=== PATIENT | male | born 1935 | race Hispanic/Latino ===

== ENCOUNTER 2016-11-06 10:47 | Outpatient (CLI) | payer MEDICARE, OTHER ==
--- NOTE | 2016-11-06 11:28 | RAD ---
RADIOGRAPH CHEST 2 VIEWS: HISTORY: 81-year-old male with dyspnea. FINDINGS: There is hyperinflation of the lungs, consistent with COPD. There is no evidence of air space densi ty, pneumothorax, or pulmonary edema. There is no cardiomegaly or pleural effusion. There is no int erval change since 05/10/15. IMPRESSION: 1. No acute cardiopulmonary findings. 2. Emphysema. 3. Pacemaker. 4. Ascending aortic stent. 5. Left-sided pleural plaque. jn [] POS: [facility]
== END 2016-11-06 10:48 | disposition home or self-care (01) ==
LOC: RAD 10:47
PROVIDERS: ATTEND Internal Medicine Pulmonary Disease
DX: R06.00 Dyspnea, unspecified (principal); J43.9 Emphysema, unspecified; J92.9 Pleural plaque without asbestos
CPT/HCPCS: 71020

== ENCOUNTER 2016-12-03 10:42 | Observation (INO) | payer MEDICARE, OTHER ==
[2016-12-03 12:01] LABS: Prothrombin Time 14.8 SEC (12.0-14.7)
[2016-12-03 12:12] LABS: Troponin I Less than 0.010 ng/mL (< 0.028)
[2016-12-03 12:16] LABS: Band 6 % (5-11); Crenated RBC SLIGHT = 1-5 cells (100X) (None Seen); Hematocrit 41.5 % (42.0-52.0); Mean Platelet Volume 9.2 fL (7.4-10.4); Neutrophil 72 % (42-75); Red Blood Cell (RBC) Count 4.26 mill/uL (4.70-6.10); Schistocytes SLIGHT = 2-5 cells (100X) (0-1/hpf); White Blood Cell (WBC) Count 8.8 thou/uL (4.8-10.8)
--- NOTE | 2016-12-03 12:22 | RAD ---
PORTABLE CHEST: Date: 12/03/16 HISTORY: Syncope. FINDINGS: Lung still are clear. Heart and mediastinum are unremarkable. Transvenous pacemaker leads are seen. Aortic stent graft is noted. IMPRESSION: No acute lung process. POS: [facility]
[2016-12-03 12:28] LABS: ALT (SGPT) 18 U/L (8-55); AST (SGOT) 22 U/L (5-34); Alkaline Phosphatase 50 U/L (40-150); Anion Gap 13 mmol/L (10-20); BUN (Urea Nitrogen) 19 mg/dL (8.4-25.7); Bilirubin, Total 0.7 mg/dL (0.2-1.2); Calc. Creatinine Clearance 0 mL/min (70-130); Calcium 8.9 mg/dL (7.8-10.44); Carbon Dioxide 23 mmol/L (23-31); Chloride 103 mmol/L (98-107); Estimated GFR-MDRD 66; Globulin 2.9 g/dL (2.4-3.5); Magnesium 1.8 mg/dL (1.6-2.6); Protein, Total 6.5 g/dL (5.8-8.1)
[2016-12-03 13:04] LABS: Bilirubin Small (Negative); Blood, Urine Negative (Negative); Glucose, Urine (Dipstick) Negative (Negative); Ketone, Urine Trace mg/dL (Negative); Nitrite Negative (Negative); Protein, Urine (Dipstick) Trace mg/dL (Neg-Trace)
[2016-12-03 13:07] LABS: Bacteria/HPF 4+ HPF (None Seen); Squamous Epithelial 0-3 HPF (0-3)
[2016-12-03 13:20] LABS: Hyaline Casts/LPF 0-3 HYALINE CAST LPF (0-3 Hyaline); RBC/HPF 0-3 HPF (0-3); Transitional Epithelial 0-3 HPF (0-3)
--- NOTE | 2016-12-03 13:30 | CT ---
CT HEAD WITHOUT CONTRAST: Date: 12/03/16 Multiple axial tomograms obtained through the head without IV enhancement. HISTORY: Syncope. FINDINGS: Ventricles have normal size and position. There is evidence of old lacunar infarct in the right basa l ganglia. Chronic ischemic changes are noted in the periventricular white matter, especially promin ent along the anterior horns. There is no evidence of acute cortical infarct. No mass or hemorrhage identified. Sinuses and mastoids are well aerated. IMPRESSION: There are chronic change as described above. No evidence of acute process. POS: [facility]
[2016-12-03] MEDS ORDERED: HumaLOG 300 UNITS/3 ML VIAL SC PRN (14:44)
[2016-12-03] MEDS ORDERED: Dextrose 50% Abboject 50 ML SYRINGE SLOW IVP PRN (14:44)
[2016-12-03] MEDS ORDERED: Acetaminophen 325 MG TAB PO PRN (14:44)
[2016-12-03] MEDS ORDERED: Guaifenesin DM 100-10/5 ML UDCUP PO PRN (14:44)
[2016-12-03] MEDS ORDERED: Dextrose 5% in Water 1,000 ML IV PRN (14:44)
[2016-12-03] MEDS ORDERED: Senokot 8.6 MG TAB PO PRN (14:44)
[2016-12-03] MEDS ORDERED: Sodium Chloride 0.9% 1,000 ML IV SCH (14:45)
[2016-12-03 15:00] LABS: Lactic Acid - Sepsis 2.8 mmol/L (0.5-2.2)
[2016-12-03 15:14] VITALS: BMI 17.8
--- NOTE | 2016-12-03 18:02 | HP ---
REASON FOR ADMISSION: Syncope likely due to orthostasis. HISTORY OF PRESENT ILLNESS: The patient gives history of standing in the sikhism when all of a sudden he felt blurry. He tried to hold his 's hand and eventually sat down. Patient states he was aware of his surroundings, but could not talk. EMS was summoned and the patient had his feet elevated and soon he started talking. His blood pressure was apparently low prior to this. Patient's glucose fingerstick was 182 at the scene. No complaints of chest pain , palpitations, PND or orthopnea. The patient states he has had these symptoms on prior occasions as well. No complaints of urinary frequency or urgency. No complaints of fever, cough, or expectoration. PAST MEDICAL/SURGICAL HISTORY: Bovine aortic valve replacement done 2 years back in [place], [place], coronary artery disease with prior stent placed, pacemaker, diabetes mellitus type 2, dyslipidemia and appendectomy. CURRENT MEDICATIONS: Patient takes 162 mg of aspirin, Glucophage, Lipitor and he does not recall the rest of the medications. His daughter will be calling it from their home in [place]. ALLERGIES: No known drug allergies. PERSONAL HISTORY: Does not abuse alcohol or drugs. No history of smoking. FAMILY HISTORY: Mother in her 70s. He has had history of diabetes. Father has had history of diabetes as well at the age of 54 years. REVIEW OF SYSTEMS: The following complete review of systems was negative, unless otherwise mentioned in the HPI or below: Constitutional: Weight loss or gain, ability to conduct usual activities. Skin: Rash, itching. Eyes: Double vision, pain. ENT/Mouth: Nose bleeding, neck stiffness, pain, tenderness. Cardiovascular: Palpitations, dyspnea on exertion, orthopnea. Respiratory: Shortness of breath, wheezing, cough, hemoptysis, fever or night sweats. Gastrointestinal: Poor appetite, abdominal pain, heartburn, nausea, vomiting, constipation, or diarrhea. Genitourinary: Urgency, frequency, dysuria, nocturia. Musculoskeletal: Pain, swelling. Neurologic/Psychiatric: Anxiety, depression. Allergy/Immunologic: Skin rash, bleeding tendency. PHYSICAL EXAMINATION: GENERAL: The patient is an 81-year-old male, who is currently not in any acute distress. VITAL SIGNS: Blood pressure 126/70, pulse 70 per minute, respiratory rate 16 per minute, temperature 97.6 degrees Fahrenheit, saturating 97% on room air. NECK: Supple. No elevated JVD. HEENT: Eyes, extraocular muscles intact. Pupils reacting to light. Oral cavity mucous membranes are moist. No exudates or congestion. CARDIOVASCULAR SYSTEM: S1, S2 heard. Regular rhythm. RESPIRATORY SYSTEM: Air entry 1+ bilateral. No rales or rhonchi. ABDOMEN: Soft, bowel sounds heard. No tenderness, rigidity or guarding. EXTREMITIES: No peripheral edema or calf tenderness. VASCULAR SYSTEM: Peripheral pulses 1+ bilateral. No ischemic ulcerations or gangrene. CENTRAL NERVOUS SYSTEM: No gross focal deficits seen. Patient is alert, awake , oriented well. PSYCHIATRIC SYSTEM: The patient's mood is euthymic. No hallucinations or delusions. LABORATORY AND X-RAY FINDINGS: White count of 8.8, H\T\H 14 and 41, platelet count 187,000 with 72% neutrophils, MCV is 97. PT/INR is 14.8 and 1.1. Electrolytes are stable. BUN 19, creatinine 1.0, glucose 187, BNP 295. First set of cardiac enzymes negative. Albumin 3.6. UA is positive for UTI. CT brain done shows old lacunar infarct in the right basal ganglia, otherwise no acute infarct or bleed. Chest x-ray done shows no acute lung process. EKG done shows paced rhythm at 70 beats per minute. CLINICAL IMPRESSION AND PLAN: The patient will be under observation on medical floor for near syncope likely due to orthostasis. We will obtain orthostatic blood pressures. I do not have a full list of his current home medications which the daughter will be calling it in from their home in [place] in just a bit. We will continue him on aspirin, ciprofloxacin for his urinary tract infection. I have ordered the urine cultures and blood cultures as well. Ultrasound carotid and echo with 2D Doppler for LV function. Family requested Dr. Pérez to see him while he is here. We will consult him for the same. He will be educated about orthostatic hypotension during his stay here as well. We will continue to closely monitor him for any hemodynamic compromise. Please note patient does not have any signs of motor weakness at present. He has slight facial droop in the left side, which is a a habit and there are no signs of facial nerve palsy. MTDD
--- NOTE | 2016-12-03 19:46 | ULT ---
BILATERAL CAROTID DUPLEX ULTRASOUND INCLUDING COLOR AND SPECTRAL DOPPLER IMAGING: History: 81-year-old male with syncope. FINDINGS: Extensive bilateral plaque involving the distal CCAs and proximal ICAs, worse on the right side. PSV right ICA 89 cm/sec, EDV 17 cm/sec, ICA/CCA ratio 1.7. PSV left ICA 54 cm/sec, EDV 11 cm/sec, ICA/CCA ratio 0.9. Vertebral flow is antegrade. IMPRESSION: No hemodynamically significant stenosis. Extensive bilateral calcified plaque evidence for carotid a rtery arterial vascular disease. POS: [facility]
[2016-12-03] MEDS: Famotidine 20 MG TAB PO SCH (21:05)
[2016-12-03] MEDS: Ciprofloxacin 500 MG TAB PO SCH (21:05)
[2016-12-03] MEDS ORDERED: FLU VACC TS2017-18 (>65YR) 0.5 ML SYRINGE IM ONE (21:30)
[2016-12-04] MEDS: Ciprofloxacin 500 MG TAB PO SCH (04:43)
[2016-12-04 05:06] LABS: Anion Gap 11 mmol/L (10-20); BUN (Urea Nitrogen) 25 mg/dL (8.4-25.7); Calc. Creatinine Clearance 51 mL/min (70-130); Calcium 8.4 mg/dL (7.8-10.44); Carbon Dioxide 21 mmol/L (23-31); Chloride 105 mmol/L (98-107); Estimated GFR-MDRD 76
[2016-12-04 05:12] LABS: #Eosinphils 0.1 thou/uL (0.0-0.7); #Lymphocytes 1.5 thou/uL (1.20-3.40); #Monocytes 0.8 thou/uL (0.11-0.59); %Basophils 0.5 % (0.0-1.0); %Eosinophils 1.4 % (0.0-10.0); %Lymphocytes 17.3 % (21.0-51.0); %Monocytes 9.1 % (0.0-10.0); Hematocrit 36.7 % (42.0-52.0); Mean Platelet Volume 8.4 fL (7.4-10.4); Red Blood Cell (RBC) Count 3.78 mill/uL (4.70-6.10); White Blood Cell (WBC) Count 8.4 thou/uL (4.8-10.8)
[2016-12-04] MEDS ORDERED: Mirtazapine 15 MG Soltab PO SCH (09:00)
[2016-12-04] MEDS ORDERED: Enoxaparin Sodium 40 MG/0.4 ML SYRINGE SC SCH (09:00)
[2016-12-04] MEDS ORDERED: Ubidecarenone 50 MG CAP PO SCH (09:00)
[2016-12-04] MEDS ORDERED: Aspirin 325 MG TAB PO SCH (09:00)
[2016-12-04] MEDS ORDERED: FLU VACC TS2017-18 (>65YR) 0.5 ML SYRINGE IM ONE (09:00)
[2016-12-04] MEDS ORDERED: Aspirin 81 mg Enteric Coated Tablet PO SCH (09:00)
[2016-12-04] MEDS: Famotidine 20 MG TAB PO SCH (10:32)
[2016-12-04 11:42] VITALS: BP 147/79; TEMP 97.4
--- NOTE | 2016-12-04 13:10 | DIS ---
DATE OF ADMISSION: 12/03/2016 DATE OF DISCHARGE: 12/04/2016 PRIMARY CARE PHYSICIAN: Gwyn Sosa M.D. DISCHARGE DISPOSITION: Home. PRIMARY DISCHARGE DIAGNOSES: 1. Syncope due to orthostatic hypotension. 2. Lactic acidosis, resolved. 3. Urinary tract infection. 4. Elevated BNP. SECONDARY DISCHARGE DIAGNOSES: History of bovine aortic valve replacement, coronary artery disease with stent, pacemaker, diabetes type 2, hypertension, and dyslipidemia PRIMARY PROCEDURE/OPERATION: None. RADIOLOGICAL INVESTIGATION: CT brain normal. Chest x-ray was normal. Carotid ultrasound negative and echocardiography result is pending. SIGNIFICANT LABORATORY DATA: Hemoglobin 12.0, INR 1.1. Creatinine 0.95. Urinalysis suggestive of UTI. Blood culture and urine culture negative. DISCHARGE MEDICATIONS: Cipro 500 mg p.o. b.i.d. for 7 days, aspirin 81 mg p.o. daily, Lipitor 20 mg p.o. at bedtime, Biotin 5,000 mcg daily, Breo Ellipta one inhalation b.i.d., gabapentin 300 mg p.o. at bedtime, Toprol-XL 25 mg p.o. daily, Remeron 15 mg p.o. daily, Ramipril 10 mg p.o. daily, thiami ne 250 mg p.o. daily, Spiriva inhalation daily, Coenzyme Q10 100 mg p.o. daily, metformin 500 mg p.o . b.i.d. CONTRAINDICATIONS: None. CODE STATUS: FULL CODE. INPATIENT CONSULTANTS: Dr. Pérez was consulted while in hospital. TEST RESULTS PENDING ON DISCHARGE: None. ALLERGIES: No known drug allergy. DISCHARGE PLAN: Post hospital, the patient is advised to keep blood pressure diary at home and foll ow up with Dr. wGyn Sosa for further adjustment of medication. HOSPITAL COURSE: An 81-year-old male who was in congregation, he has to do bending, and standing for his baptism activity. Over there, the patient felt dizzy and he passed out. He did not have any inju ry. He was hypotensive when paramedics came to see him and subsequently he was brought to hospital, he was given IV fluids. His presentation was consistent with orthostatic hypotension. He was admi tted to medical floor. He had initially lactic acidosis and he had a urinalysis suggestive of UTI a nd that is why he was treated with oral Cipro while in hospital. His culture is negative. He had elevated BNP and that is why we did echocardiography. During this admission, echocardiograph y is done, the official report is pending by the time of dictation. The patient's family members re quested Dr. Pérez to see him and that is why we consulted Dr. Pérez. During this admission, we discontinued amlodipine and rest of medication is continued as per previou s. We also discontinued Imdur 120 mg, rather we just change to Imdur 30 mg p.o. daily if blood pres sure permits. This patient is advised to monitor blood pressure at home more frequently and keep a diary of blood pressure and see primary care physician for further adjustment of blood pressure medi cation. Dietary education is also given. Patient is seen and examined at bedside today. His review of systems is negative. Plan of care dis cussed with the patient and family member. PHYSICAL EXAMINATION: VITAL SIGNS: Currently, temperature 97.4, pulse 72, respiratory rate 16, saturation 99%, blood pres sure 147/79. Weight 127 pounds. GENERAL: The patient is currently alert, awake, no acute distress. HEAD: Normocephalic, atraumatic. LUNGS: Clear. CARDIAC: S1, S2 regular without any murmur. ABDOMEN: Soft and benign. EXTREMITIES: No edema. NEUROLOGIC: Nonfocal examination. The patient will be discharged later on today after Dr. Pérez' consultation.
--- NOTE | 2016-12-04 14:45 | PQF ---
SARAH CHRIS, ROSS TAM MD [id number] CLINICAL DOCUMENTATION IMPROVEMENT CLARIFICATION FORM: ICD-10 Updated PLEASE DO AN ADDENDUM TO THE PROGRESS NOTE WITH ANY DOCUMENTATION UPDATES OR ADDITIONS AND CARRY THROUGH TO DC SUMMARY. THANK YOU. Date: 12-04-16 ATTN: DR. JORDAN Please exercise your independent, professional judgment in responding to the clarification form. Clinical indicators are provided on the bottom of this form for your review Please check appropriate box(s): [ ] Protein Calorie Malnutrition: [ ] Mild [ ] Moderate [ ] Severe [ ] Other Malnutrition (please specify) __ [ ] Underweight without malnutrition [ ] Cachexia [ ] Other diagnosis [ x ] Unable to determine In addition, please specify: Present on Admission (POA): [ ] Yes [ ] No [ x ] Unable to determine CLINICAL INDICATORS - SIGNS / SYMPTOMS / LABS BMI of 17.8 NUTRITIONAL CONSULT: TEMPORAL MUSCLE WASTING; LOW FAT STORES OBSERVED TO FOREARMS INABILITY TO GAIN WT X PAST 4 YRS W/ SUPPLEMENTATION, RISK FACTORS H&P: DM TYPE 2 DIETARY CONSULT: 4-6 BM'S DAY W/O LAXATIVES TREATMENT: DIETARY CONSULT DIETARY RECOMMENDATIONS: 2000 KCAL CONSISTENT CARBOHYDRATE HEART HEALTHY DIET ENSURE ENLIVE TID MONITOR FOR HYPERGLYCEMIA W/ ENSURE - IF PT HAS POC OVER 180 AFTER ENSURE - RECOMMEND CHANGE TO GLUCERNA SHAKE HIGH FU PRIORITY THANK YOU, RADHA (This form is maintained as a part of the permanent medical record) 2014 [employer]. All Rights Reserved Radha Owen, RN, BS [email or web address] [facility]
[2016-12-04] MEDS ORDERED: metFORMIN 500 MG TAB PO SCH (17:00)
--- NOTE | 2016-12-04 17:44 | CON ---
DATE OF SERVICE: 12/04/2016 TYPE OF CONSULTATION: Cardiology Consultation. REFERRING PHYSICIAN: Sultana Dover M.D. REASON FOR CONSULTATION: Presyncope. HISTORY OF PRESENT ILLNESS: Mr. Durham is a well-known 81-year-old gentleman who presented to the em ergency department complaining of acute onset of dizziness after changing position at a tenriism after praying. He became acutely dizzy upon standing, was aware of his surroundings but had trouble talk ing due to the profound dizziness that he was experiencing. He has had issues with his blood pressu re being low recently and orthostatic blood pressures upon arrival to the hospital were positive for orthostatic hypotension. His medications have been adjusted and he has been given some fluid and his symptoms have completely resolved. PAST MEDICAL HISTORY: 1. Coronary artery disease with a history of percutaneous coronary intervention and stenting. 2. Sick sinus syndrome, status post permanent pacemaker placement. 3. Type 2 diabetes mellitus. 4. Dyslipidemia. 5. Aortic valvular disease. PAST SURGICAL HISTORY: 1. Bioprosthetic aortic valve replacement 2 years ago in [place], [place]. 2. Percutaneous coronary intervention and stenting. 3. Permanent pacemaker implantation. 4. Appendectomy. ALLERGIES: No known drug allergies. SOCIAL HISTORY: He denies tobacco use, alcohol abuse, or illicit recreational drug use. He operate s a business selling tacos. FAMILY HISTORY: Negative with respect to premature atherosclerosis. CURRENT MEDICATIONS AT HOME: Include, 1. Aspirin 81 mg daily. 2. Lipitor 20 mg daily. 3. Biotin 1 tablet daily. 4. Cipro 500 mg b.i.d. 5. Gabapentin 300 mg at bedtime. 6. Imdur 30 mg daily. 7. Metoprolol 25 mg daily. 8. Mirtazapine 15 mg at bedtime. 9. Ramipril 10 mg daily. 10. Metformin 500 mg b.i.d. REVIEW OF SYSTEMS: As per history of present illness. Remainder of 12 system review is negative. PHYSICAL EXAMINATION: VITAL SIGNS: Blood pressure 147/79, pulse 72 and regular, respiratory rate 16 and nonlabored, tempe rature 97.4, oxygen saturation 99% on room air. GENERAL: This is a well-developed, well-nourished 81-year-old gentleman in no acute distre ss. He is alert and oriented x4. Answers questions appropriately. HEENT: Head is atraumatic, normocephalic. Pupils are equally round and reactive. Sclerae and conj unctivae are clear. There are no oral lesions. NECK: Supple, no JVD or thyromegaly or carotid bruits. CHEST: Symmetrical inspiration and expiration. HEART: Regular rate and rhythm, no murmur, S3 or S4. PMI is nondisplaced, not enlarged. LUNGS: Clear to auscultation in all still. No adventitious sounds appreciated. ABDOMEN: Soft, nontender, nondistended, without mass or organomegaly. Bowel sounds are present in all 4 quadrants. No flank bruits auscultated. EXTREMITIES: 2+ pulses noted bilaterally in the upper and lower extremities, strength 5/5 bilateral ly. There is no clubbing, cyanosis or edema. NEUROLOGIC: Grossly intact with no focal motor deficits appreciated. DATABASE: EKG reveals sinus rhythm with nonspecific ST changes. LABORATORY DATA: CBC reveals a white count 8, H\T\H 12 and 36, platelet count 197,000. Differential white blood cells normal. Red cell indices normocytic. Coagulation studies are normal. Chemistri es reveal sodium of 133, potassium 4.1, chloride 105, bicarbonate 20, BUN and creatinine 25 and 0.9, GFR is estimated at 76, glucose 78. Serial cardiac enzymes are normal. BNP was mildly elevated at 296. LFTs were normal. ASSESSMENT: 1. Orthostatic hypotension, resolved. 2. Dizziness/presyncope secondary to #1. 3. Coronary artery disease with history of percutaneous coronary intervention and stenting. 4. Aortic valvular disease status post aortic valve replacement, stable. 5. Chronic kidney disease, stage 2. 6. Hypertension, controlled. 7. Dyslipidemia, on therapy. 8. Type 2 diabetes mellitus, managed with oral agents. RECOMMENDATIONS: 1. From a cardiac standpoint, he is stable. His symptoms have resolved with fluid resuscitation an d adjustment of his blood pressure medicines. He is to follow up with Dr. Pérez in the office be fore the end of the year or sooner if he continues to have recurrent symptoms. I reviewed his echo and it shows a stable aortic valve prosthesis with no evidence of leaflet deterioration or restenosi s. LV function is normal. 2. He is clear from a cardiovascular standpoint for discharge home with follow up with Dr. Pérez as mentioned above. I appreciate the opportunity to participate.
[2016-12-04] MEDS ORDERED: Mometasone/Formoterol 120 PUFF INHALER INH SCH (18:30)
[2016-12-04] MEDS ORDERED: Gabapentin 300 MG CAP PO SCH (21:00)
[2016-12-04] MEDS ORDERED: Atorvastatin Calcium 20 MG TAB PO SCH (21:00)
== END 2016-12-04 16:41 | disposition home or self-care (01) ==
LOC: ERS 10:42 → INTOOBSV 15:01 → T4-B 15:01
PROVIDERS: ADMIT Internal Medicine; ATTEND Internal Medicine
DX: I95.1 Orthostatic hypotension (principal); E87.2 Acidosis; N39.0 Urinary tract infection, site not specified; R79.89 Other specified abnormal findings of blood chemistry; I25.10 Atherosclerotic heart disease of native coronary artery without angina pectoris; E78.5 Hyperlipidemia, unspecified; I49.5 Sick sinus syndrome; E11.22 Type 2 diabetes mellitus with diabetic chronic kidney disease; I12.9 Hypertensive chronic kidney disease with stage 1 through stage 4 chronic kidney disease, or unspecified chronic kidney disease; N18.2 Chronic kidney disease, stage 2 (mild); Z79.84 Long term (current) use of oral hypoglycemic drugs; Z79.51 Long term (current) use of inhaled steroids; Z79.899 Other long term (current) drug therapy; Z95.3 Presence of xenogenic heart valve; Z95.0 Presence of cardiac pacemaker; Z95.818 Presence of other cardiac implants and grafts; Z90.49 Acquired absence of other specified parts of digestive tract; Z83.3 Family history of diabetes mellitus
CPT/HCPCS: 70450; 71010; 80048; 80053; 82553; 82962 ×2; 83605; 83735; 83880; 84484; 85025 ×2; 85610; 87040; 87086; 93005; 93306; 93880; 94640; 97139; 99285; G0008; G0378; Q2036; 36415; 36416; 81003; 81015; 90471; 90682; J1650; J7620

== ENCOUNTER 2017-02-11 10:18 | Inpatient (IN) | payer MEDICARE ==
[2017-02-11 11:07] LABS: #Lymphocytes 0.9 thou/uL (1.20-3.40); #Neutrophils 15.8 thou/uL (1.40-6.50); %Basophils 0.2 % (0.0-1.0); %Eosinophils 0.1 % (0.0-10.0); %Lymphocytes 5.2 % (21.0-51.0); %Monocytes 5.7 % (0.0-10.0); %Neutrophils 88.8 % (42.0-75.0); Hemoglobin 15.4 g/dL (14.0-18.0); Mean Corpuscular HGB CONC 33.9 g/dL (32.0-36.0); Mean Corpuscular Hemoglobin 33.5 pg (27.0-31.0); Mean Platelet Volume 8.9 fL (7.4-10.4); Platelet Count 238 thou/uL (130-400); RBC Distribution Width 13.2 % (11.5-14.5); White Blood Cell (WBC) Count 17.8 thou/uL (4.8-10.8)
[2017-02-11] MEDS ORDERED: methylPREDNISolone Sod Succ/PF 125 MG/2 ML VIAL ONE (11:17)
[2017-02-11] MEDS ORDERED: Water For Inject, Bacteriostat 30 ML ONE (11:17)
[2017-02-11 11:19] LABS: Troponin I 0.064 ng/mL (< 0.028)
[2017-02-11 11:22] LABS: INR-International Normal Ratio 1.2; PTT 27.5 SEC (22.9-36.1); Prothrombin Time 15.2 SEC (12.0-14.7)
[2017-02-11 11:28] LABS: CKMB 9.2 ng/mL (0-6.6)
[2017-02-11] MEDS ORDERED: Furosemide 40 MG/4 ML VIAL ONE ×2 (11:42→15:31)
[2017-02-11 11:49] LABS: ALT (SGPT) 69 U/L (8-55); AST (SGOT) 52 U/L (5-34); Albumin 3.8 g/dL (3.4-4.8); Alkaline Phosphatase 77 U/L (40-150); Anion Gap 17 mmol/L (10-20); BUN (Urea Nitrogen) 35 mg/dL (8.4-25.7); Bilirubin, Total 0.8 mg/dL (0.2-1.2); Calc. Creatinine Clearance 0 mL/min (70-130); Carbon Dioxide 24 mmol/L (23-31); Chloride 99 mmol/L (98-107); Estimated GFR-MDRD 73; Globulin 3.4 g/dL (2.4-3.5); Glucose 286 mg/dL (83-110); Potassium 4.9 mmol/L (3.5-5.1); Protein, Total 7.2 g/dL (5.8-8.1); Sodium 135 mmol/L (136-145)
[2017-02-11] MEDS ORDERED: Piperacillin/Tazobactam 3.375 GM in Sodium Chloride 0.9% 100 ML IVPB SCH (12:00)
--- NOTE | 2017-02-11 12:50 | RAD ---
PORTABLE CHEST: HISTORY: Dyspnea. COMPARISON: 12/03/2016 FINDINGS: The lungs appear clear. No infiltrate. A dual-lead pacemaker device is again noted. Stent graft ma terial is again seen overlying the aortic root. IMPRESSION: No acute chest finding or interval change noted. POS: [facility]
[2017-02-11] MEDS ORDERED: Bisacodyl 5 MG TAB PO PRN (13:22)
[2017-02-11] MEDS ORDERED: cefTRIAXone\\ROCEPHIN 1 GM in Sodium Chloride 0.9% 100 ML IVPB SCH (13:30)
[2017-02-11 14:26] LABS: Troponin I 0.096 ng/mL (< 0.028)
[2017-02-11 14:54] LABS: Lactic Acid 1.8 mmol/L (0.5-2.2)
[2017-02-11 17:22] LABS: Troponin I 0.115 ng/mL (< 0.028)
[2017-02-11] MEDS ORDERED: Dextrose 5% in Water 1,000 ML IV PRN (17:52)
[2017-02-11] MEDS ORDERED: Dextrose 50% Abboject 50 ML SYRINGE SLOW IVP PRN (17:52)
--- NOTE | 2017-02-11 18:45 | HP ---
PRIMARY CARE PHYSICIAN: Gwyn Sosa M.D. CHIEF COMPLAINT: Shortness of breath. HISTORY OF PRESENT ILLNESS: Mr. Durham is a pleasant 81-year-old gentleman who was seen at [facility] on 02/11/2017. He is able to provide some history. History was also obtained from his and daughters by the bedside, discussion with the emergency room physician as well as review of medical records. Over the last 10 days, he has had cough. The cough is productive of a small amount of sputum. He also had progressively worsening shortness of breath. He reports shortness of breath with exertion. He denies orthopnea or paroxysmal nocturnal dyspnea. He does not have any fevers. He does not have any chest pain. He was seen by his primary care physician a few days ago. At that time, it was not felt to be secondary to an infection. He came to the emergency room because of ongoing shortness of breath. REVIEW OF SYSTEMS: The following complete review of systems was negative, unless otherwise mentioned in the HPI or below: Constitutional: Weight loss or gain, ability to conduct usual activities. Skin: Rash, itching. Eyes: Double vision, pain. ENT/Mouth: Nose bleeding, neck stiffness, pain, tenderness. Cardiovascular: Palpitations, dyspnea on exertion, orthopnea. Respiratory: Shortness of breath, wheezing, cough, hemoptysis, fever or night sweats. Gastrointestinal: Poor appetite, abdominal pain, heartburn, nausea, vomiting, constipation, or diarrhea. Genitourinary: Urgency, frequency, dysuria, nocturia. Musculoskeletal: Pain, swelling. Neurologic/Psychiatric: Anxiety, depression. Allergy/Immunologic: Skin rash, bleeding tendency. PAST MEDICAL HISTORY: Diabetes mellitus, type 2; coronary artery disease; dyslipidemia; and appendectomy. PAST SURGICAL HISTORY: Bovine aortic valve replacement done 2 years ago in [place], [place], and PCI with stent for coronary artery disease and pacemaker placement. FAMILY HISTORY: Diabetes mellitus in his mother and father. ALLERGIES: No known drug allergies. CURRENT MEDICATIONS: Altace 10 mg daily, Imdur 30 mg daily, metoprolol succinate 25 mg daily, Lipitor 20 mg daily, mirtazapine 15 mg daily, Breo Ellipta 2 times a day, Spiriva 2 puffs daily, gabapentin 300 mg daily, Legatrin PM half a capsule daily, Glucophage 500 mg 2 times a day, Biotin 10,000 mcg daily, vitamin B1 of 250 mg daily, MegaKrill 1 capsule daily, aspirin 81 mg daily, Coenzyme Q10 of 100 mg daily, vitamin D3 of 1000 units daily. CODE STATUS: I discussed his code status. He is FULL CODE. SOCIAL HISTORY: No history of tobacco, alcohol or recreational drug use. PHYSICAL EXAMINATION: GENERAL: On examination, Mr. Durham is awake and alert, not in acute distress. VITAL SIGNS: Blood pressure is 138/88, pulse is 93, he is breathing at rate of 20 and saturating 100% on 2 liters of oxygen. He is afebrile now. When he presented to the emergency room, he had a respiratory rate of 38 and pulse of 107. EYES: No scleral icterus. No conjunctival pallor. ENT: Moist mucosal membranes, no oropharyngeal erythema or exudates. NECK: Supple, nontender, normal range of movement, trachea is midline. He has jugular venous distention. RESPIRATORY: Accessory muscles of breathing are mildly active. Chest wall movements are symmetric bilaterally. Lung examination reveals a few bibasilar crackles. CARDIOVASCULAR: S1 and S2 are heard, regular. Peripheral pulses are palpable. No carotid bruit, no pericardial rub. ABDOMEN: Soft, nontender, bowel sounds are heard, no hepatomegaly, no splenomegaly. NEUROLOGIC: Cranial nerves II-XII are intact. Deep tendon reflexes are 2+. SKIN: No rashes or subcutaneous nodules. No lower extremity edema. MUSCULOSKELETAL: Power is 5/5 in all 4 extremities. PSYCHIATRIC: Normal mood, normal affect, patient is oriented to person and place, not to time. LYMPHATIC: No cervical lymphadenopathy. LABORATORY DATA AND IMAGING: Mr. Durham's labs and investigations were reviewed. I reviewed his electrocardiogram, which shows electronic ventricular paced rhythm, no ST changes to suggest an acute coronary syndrome. I also reviewed his chest x-ray, which does not show any pulmonary infiltrates. Laboratory investigations show leukocytosis with 17,800 white cells, of which 88.8% are neutrophils, normal hemoglobin, normal platelet count, INR 1.2, decreased sodium of 135, normal potassium, normal creatinine, lactic acid 1.8, normal total bilirubin, normal alkaline phosphatase, elevated transaminases of AST 52 and ALT 69, elevated CK-MB of 9.2, troponin I indeterminate at 0.115, BNP elevated at 2350, normal albumin and negative influenza screen. ASSESSMENT AND PLAN: Mr. Durham is a pleasant 81-year-old gentleman who was seen at [facility] on 02/11/2017. His problem list includes: 1. Sepsis: Mr. Durham's presentation is consistent with sepsis, suspected source of infection in the respiratory tract. It could be secondary to viral respiratory tract infection, although bacterial infection cannot be completely ruled out at this time. He will be admitted to the hospital for further management, including antibiotics until he improves or until the cultures come back negative. Blood cultures have already been sent. We will consult Pulmonology Service. 2. Congestive heart failure exacerbation. He also appears to have acute exacerbation of congestive heart failure. He has not been treated with diuretics in the past. We will initiate him on diuretics. We will also check 2D echocardiogram and have his pacemaker interrogated. We will consult Cardiology Service. 3. Hyponatremia: Mild, we will recheck. 4. Diabetes mellitus. Start Accu-Cheks, insulin sliding scale. 5. Indeterminate troponin I: This could be secondary to congestive heart failure. We will await 2D echocardiogram report. 6. Dyslipidemia: Continue statin. Many thanks for allowing me to participate in your patient's care. Please feel free to contact me with any questions or concerns. LEVEL OF RISK: High. LEVEL OF COMPLEXITY: High. MTDD
[2017-02-11] MEDS: Mometasone/Formoterol 120 PUFF INHALER INH SCH (19:45)
[2017-02-12] MEDS ORDERED: Furosemide 40 MG/4 ML VIAL ONE ×2 (01:11→05:58)
[2017-02-12 04:31] LABS: #Lymphocytes 0.9 thou/uL (1.20-3.40); #Monocytes 0.9 thou/uL (0.11-0.59); #Neutrophils 10.2 thou/uL (1.40-6.50); %Basophils 0.1 % (0.0-1.0); %Lymphocytes 7.1 % (21.0-51.0); %Monocytes 7.5 % (0.0-10.0); %Neutrophils 85.3 % (42.0-75.0); Hemoglobin 14.3 g/dL (14.0-18.0); Mean Corpuscular HGB CONC 33.1 g/dL (32.0-36.0); Mean Corpuscular Hemoglobin 32.1 pg (27.0-31.0); Mean Corpuscular Volume 97.2 fl (80.0-94.0); Mean Platelet Volume 8.6 fL (7.4-10.4); Platelet Count 248 thou/uL (130-400); RBC Distribution Width 13.1 % (11.5-14.5); Red Blood Cell (RBC) Count 4.44 mill/uL (4.70-6.10)
[2017-02-12 05:14] LABS: Anion Gap 21 mmol/L (10-20); BUN (Urea Nitrogen) 40 mg/dL (8.4-25.7); Calc. Creatinine Clearance 0 mL/min (70-130); Calcium 9.8 mg/dL (7.8-10.44); Carbon Dioxide 26 mmol/L (23-31); Chloride 94 mmol/L (98-107); Estimated GFR-MDRD 45; Glucose 290 mg/dL (83-110); Sodium 137 mmol/L (136-145)
[2017-02-12] MEDS: Mometasone/Formoterol 120 PUFF INHALER INH SCH ×2 (07:38→19:52)
[2017-02-12] MEDS ORDERED: BIOTIN 5000 MCG PO SCH (09:00)
[2017-02-12] MEDS ORDERED: Enoxaparin Sodium 40 MG/0.4 ML SYRINGE ONE (10:30)
--- NOTE | 2017-02-12 12:04 | CON ---
DATE OF CONSULTATION: 02/12/2017 This is an 81-year-old gentleman who is well-known to me. He presented with a week history of cough, congestion, shortness of breath. His troponin is elevated. In the ER his BNP was 2,350. His x-ray is normal. The patient is essenti ally a nonsmoker. He sees us in the office regularly. MEDICATIONS FROM HOME: Metformin twice a day, CQ 1 a day, Stiolto 2 puffs a day, Thiamine, Altace 1, Sotalol, Remeron 1 tablet, Toprol-XL 25, ISMO 30, Gabapentin, Breo once a day, Cipro, Biotin, Lipito r. He was here in November for syncope. He apparently was discharged from the ER to follow up with primary care physician. It was felt to be orthostatic hypotension. His sputum is relatively clear. He is denying any chest pain. He is a nonsmoker. PAST MEDICAL HISTORY: Pertinent otherwise for diabetes, dyslipidemia, asthma, chronic obstructive pu lmonary disease, nonsmoker. PAST SURGICAL HISTORY: Aortic valve, stents, pacemaker. MEDICATIONS: As outlined. REVIEW OF SYSTEMS: Otherwise 10 point negative. PHYSICAL EXAMINATION: GENERAL: He appears to be in no acute distress. VITAL SIGNS: His sats are 98 to 100 on 3 liters, respirations 31, temperature 97, blood pressure 149 /73. CHEST: Chest reveals no wheezing. CARDIAC: Normal S1, S2. No gallops. ABDOMEN: Soft, no masses. X-ray shows no acute infiltrates. White count 12,000, H&H 14 and 43, platelet count 248, creatinine 1.59. Troponin negative. IMPRESSION: 1. Acute/chronic respiratory failure, felt to be secondary to diastolic dysfunction. 2. Elevated BNP. 3. Renal failure. 4. Nonsmoker. PLAN: I agree with present treatment. Antibiotics, neb treatments. I will follow. This is a 50 minute time spent at the patient's bedside.
[2017-02-12] MEDS: cefTRIAXone\\ROCEPHIN 1 GM, Syringe 0.4 ML in Sterile Water 9.6 ML SLOW IVP SCH ×2 (13:46→15:06)
[2017-02-12] MEDS: Azithromycin 500 MG in Sodium Chloride 0.9% 250 ML 250 ML IVPB SCH ×2 (13:46→15:06)
[2017-02-12] MEDS: Furosemide 40 MG/4 ML VIAL SLOW IVP SCH ×2 (13:46→15:06)
[2017-02-12] MEDS: Gabapentin 300 MG CAP PO SCH ×2 (13:47→21:39)
[2017-02-12] MEDS: Atorvastatin Calcium 20 MG TAB PO SCH ×2 (13:47→21:39)
[2017-02-12] MEDS: metFORMIN 500 MG TAB PO SCH ×3 (13:47→21:39)
[2017-02-12] MEDS: Aspirin 81 mg Enteric Coated Tablet PO SCH (13:48)
[2017-02-12] MEDS: Enoxaparin Sodium 40 MG/0.4 ML SYRINGE SC SCH (13:48)
[2017-02-12] MEDS: Ramipril 5 MG CAP PO SCH (13:49)
[2017-02-12] MEDS: Mirtazapine 15 MG Soltab PO SCH (13:49)
[2017-02-12] MEDS: Ubidecarenone 50 MG CAP PO SCH (13:50)
--- NOTE | 2017-02-12 15:25 | PDOC.PN ---
- Subjective Encounter Start Date: 02/12/17 Encounter Start Time: 15:23 Subjective: feels a little better. breathing improved.some cough - Objective Resuscitation Status: Resuscitation Status FULL:Full Resuscitation MAR Reviewed: Yes Vital Signs & Weight: Vital Signs (12 hours) Temp Pulse Resp BP Pulse Ox 02/12/17 13:59 79 24 H 100 02/12/17 13:22 98.2 F 87 16 121/70 100 02/12/17 07:39 100 02/12/17 07:36 85 31 H 99 Weight Admit Weight 105 lb 8 oz Weight 105 lb 8 oz Result Diagrams: 02/12/17 03:54 02/12/17 03:54 Additional Labs: Accuchecks 02/11/17 20:20 POC Glucose 328 H Microbiology 02/11/17 10:35 Nasal swab Influenza Types A,B Direct EIA - Final 02/11/17 11:04 Venous blood - Left Hand Blood Culture - Preliminary Specimen has been received and culture in progress. No Growth to date. 02/11/17 11:01 Venous blood - Right Hand Blood Culture - Preliminary Specimen has been received and culture in progress. No Growth to date. Laboratory Tests 12/03/16 02/11/17 02/11/17 10:53 10:52 11:04 WBC 17.8 H Creatinine 0.99 B-Natriuretic Peptide 296.5 H 02/11/17 02/12/17 02/12/17 11:04 03:54 03:54 WBC 12.0 H Creatinine 1.49 H B-Natriuretic Peptide 2350.6 H Phys Exam - Physical Examination Constitutional: NAD HEENT: PERRLA, moist MMs, sclera anicteric, oral pharynx no lesions Neck: no nodes, no JVD, supple, full ROM Respiratory: no rales, no rhonchi, wheezing present, clear to auscultation bilateral Cardiovascular: RRR, no significant murmur, no rub, gallop Gastrointestinal: soft, non-tender, no distention, positive bowel sounds Musculoskeletal: no edema, pulses present Neurological: non-focal, normal sensation, moves all 4 limbs Psychiatric: normal affect, A&O x 3 Skin: no rash Dx/Plan (1) Sepsis Code(s): A41.9 - SEPSIS, UNSPECIFIED ORGANISM Status: Suspected (2) Acute CHF Code(s): I50.9 - HEART FAILURE, UNSPECIFIED Status: Acute Qualifiers: Congestive heart failure type: diastolic Qualified Code(s): I50.31 - Acute diastolic (congestive) heart failure (3) PNA (pneumonia) Code(s): J18.9 - PNEUMONIA, UNSPECIFIED ORGANISM Status: Acute (4) S/P AVR (aortic valve replacement) Code(s): Z95.2 - PRESENCE OF PROSTHETIC HEART VALVE Status: Chronic (5) Pacemaker Code(s): Z95.0 - PRESENCE OF CARDIAC PACEMAKER Status: Chronic (6) CAD (coronary artery disease) Code(s): I25.10 - ATHSCL HEART DISEASE OF [place] CORONARY ARTERY W/O ANG PCTRS Status: Chronic (7) Diabetes type 2, controlled Code(s): E11.9 - TYPE 2 DIABETES MELLITUS WITHOUT COMPLICATIONS Status: Chronic (8) Hypertension Code(s): I10 - ESSENTIAL (PRIMARY) HYPERTENSION Status: Chronic (9) Malnutrition Code(s): E46 - UNSPECIFIED PROTEIN-CALORIE MALNUTRITION Status: Acute Qualifiers: Malnutrition type: protein-calorie malnutrition Protein-calorie malnutrition severity: moderate Qualified Code(s): E44.0 - Moderate protein- calorie malnutrition - Plan plan discussed w/ family, continue antibiotics, PT/OT, respiratory therapy, incentive spirometry, out of bed/ambulate, DVT proph w/SCDs cont diuresis .reduce lasix as renal Fx worsening. -: cont empiric ABx. follow Cx results. -: PCCM & cardiology consulted. -: restart home meds as below.HD stable. -: am labs.Cont nebs,supportive care * . Review of Systems - Review of Systems Constitutional: weakness, malaise. negative: fever, chills, sweats, other Eyes: negative: Pain, Vision Change, Conjunctivae Inflammation, Eyelid Inflammation, Redness, Other ENT: negative: Ear Pain, Ear Discharge, Nose Pain, Nose Discharge, Nose Congestion, Mouth Pain, Mouth Swelling, Throat Pain, Throat Swelling, Other Respiratory: Cough, SOB with Excertion, Sputum Cardiovascular: negative: chest pain, palpitations, orthopnea, paroxysmal nocturnal dyspnea, edema, light headedness, other Gastrointestinal: negative: Nausea, Vomiting, Abdominal Pain, Diarrhea, Constipation, Melena, Hematochezia, Other Genitourinary: negative: Dysuria, Frequency, Incontinence, Hematuria, Retention , Other Musculoskeletal: negative: Neck Pain, Shoulder Pain, Arm Pain, Back Pain, Hand Pain, Leg Pain, Foot Pain, Other Neurological: negative: Weakness, Numbness, Incoordination, Change in Speech, Confusion, Seizures, Other - Medications/Allergies Allergies/Adverse Reactions: Allergies Allergy/AdvReac Type Severity Reaction Status Date / Time No Known Drug Allergies Allergy Verified 12/03/16 15:55 Medications: Current Medications Acetaminophen (Tylenol) 650 mg PO Q4H PRN PRN Reason: Headache/Fever or Pain Albuterol/Ipratropium (Duoneb) 3 ml NEB [id number] [facility] Last Admin: 02/12/17 13:59 Dose: 3 ml Aspirin (Ecotrin) 81 mg PO DAILY [facility] Last Admin: 02/12/17 13:48 Dose: Not Given Atorvastatin Calcium (Lipitor) 20 mg PO HS [facility] Last Admin: 02/12/17 13:47 Dose: Not Given Bisacodyl (Dulcolax) 10 mg PO DAILYPRN PRN PRN Reason: Constipation Coenzyme Q10 (Coenzyme Q10) 100 mg PO DAILY [facility] Last Admin: 02/12/17 13:50 Dose: Not Given Dextrose/Water (Dextrose 50%) 25 gm SLOW IVP PRN PRN PRN Reason: Hypoglycemia Enoxaparin Sodium (Lovenox) 40 mg SC 0900 [facility] Last Admin: 02/12/17 13:48 Dose: Not Given Furosemide (Lasix) 20 mg SLOW IVP 0600,1400 [facility] Gabapentin (Neurontin) 300 mg PO HS [facility] Last Admin: 02/12/17 13:47 Dose: Not Given Glucagon (Glucagon) 1 mg IM PRN PRN PRN Reason: Hypoglycemia Azithromycin 500 mg/ Sodium (Chloride) 250 mls @ 250 mls/hr IVPB 1500 [facility] Last Admin: 02/12/17 15:06 Dose: 250 mls Ceftriaxone Sodium 1 gm/ (Syringe 0.4 ml/ Sterile Water) 10 mls @ 120 mls/hr SLOW IVP 1600 [facility] Last Admin: 02/12/17 15:06 Dose: 10 mls Dextrose/Water (D5w) 1,000 mls @ 0 mls/hr IV .Q0M PRN; As Directed PRN Reason: Hypoglycemia Insulin Human Lispro (Humalog) 0 units SC .MILD SLIDING SCALE PRN PRN Reason: Mild Correctional Scale Isosorbide Mononitrate (Imdur Er) 30 mg PO DAILY [facility] Last Admin: 02/12/17 13:48 Dose: Not Given Metformin HCl (Glucophage) 500 mg PO BID [facility] Last Admin: 02/12/17 13:48 Dose: Not Given Metoprolol Succinate (Toprol Xl) 25 mg PO DAILY [facility] Last Admin: 02/12/17 13:49 Dose: Not Given Mirtazapine (Remeron Soltab) 15 mg PO DAILY [facility] Last Admin: 02/12/17 13:49 Dose: Not Given Mometasone Furoate/Formoterol Fumar (Dulera 100 Mcg/5 Mcg Inhaler) 2 puff INH BID-RT [facility] Last Admin: 02/12/17 07:38 Dose: 2 puff Biotin [Biotin] 5000 (Mcg Tab) 0 each PO DAILY [facility] Prednisone (Prednisone) 40 mg PO QAM[facility] Ramipril (Altace) 10 mg PO DAILY [facility] Last Admin: 02/12/17 13:49 Dose: Not Given Thiamine HCl (Thiamine) 250 mg PO DAILY [facility] Last Admin: 02/12/17 13:49 Dose: Not Given
[2017-02-12] MEDS ORDERED: hydrALAZINE 20 MG/ML VIAL SLOW IVP PRN (15:27)
[2017-02-12 17:39] LABS: Bilirubin Negative (Negative); Blood, Urine Negative (Negative); Clarity CLEAR (Clear); Glucose, Urine (Dipstick) 100 mg/dL (Negative); Leukocyte Negative (Negative); Nitrite Negative (Negative); Protein, Urine (Dipstick) Negative (Neg-Trace); Specific Gravity, Urine 1.018 (1.002-1.036); Urobilinogen 0.2 mg/dL (0.2-1.0); pH, Urine 5.5 (5.0-9.0)
--- NOTE | 2017-02-12 19:33 | CON ---
DATE OF CONSULTATION: 02/12/2017 HISTORY OF PRESENT ILLNESS: The patient is a pleasant 81-year-old gentleman who presents with increasing dyspnea. The patient has a long history of coronary artery disease. He has previously undergone a PTCA and stent placement in [place]. He also underwent a TAVR replacement. The patient has been having difficulty with persistent weight loss. He reports having decreased appetite. The patient went on a cruise and subsequently became short of breath. He has progressive cough and dyspnea. The patient denied having any chest discomfort. PAST MEDICAL HISTORY: 1. Coronary artery disease. 2. History of aortic valve replacement. 3. Hypertension. 4. Diabetes mellitus. 5. Dyslipidemia. 6. History of pacemaker placement. PAST SURGICAL HISTORY: Aortic valve replacement and an appendectomy. SOCIAL HISTORY: Nonsmoker. ALLERGIES: No known drug allergies. FAMILY HISTORY: Positive family history of coronary artery disease. MEDICATIONS: See nursing list. REVIEW OF SYSTEM: Noticeable for marked weight loss. PHYSICAL EXAMINATION: GENERAL: Ill-appearing gentleman. VITAL SIGNS: Blood pressure 121/70. NECK: Showed no jugular venous distention. LUNGS: Coarse breath sounds bilateral. HEART: Regular rate and rhythm, normal S1, S2. ABDOMEN: Nondistended. EXTREMITIES: Showed no edema. SKIN: Warm and dry. NEUROLOGIC: Nonfocal. VASCULAR: Radial pulses are 2+. LABORATORY: Sodium 137, potassium 4.0, chloride 94, bicarbonate 26, BUN 40, creatinine 1.49, glucose 290, troponin 0.115. BNP 2350. White blood cell count 12.0, hemoglobin 14.3, hematocrit 43.1, platelets are 248. His EKG revealed him to have electronic ventricular pacemaker. Chest x-ray revealed clear normal heart size and with a pacemaker and no evidence of edema. IMPRESSION: 1. Dyspnea. 2. Probable sepsis. 3. Marked weight loss. 4. History of PTCA and stent placement. 5. Status post aortic valve replacement. 6. Diabetes mellitus. 7. Hypertension. This gentleman presents with dyspnea. He went on a cruise and he developed a dry cough. He may have an underlying pneumonia that was not present on his chest x-ray. I most concerned about the patient's persistent weight loss. I feel that he should undergo GI evaluation to see if he should have a feeding tube. From a cardiac standpoint, his BNP is markedly elevated. He does not clinically appear to be in significant failure. The patient being diuresed with Lasix, and he is receiving IV antibiotics. We will follow this patient with you through his hospitalization. TROY
[2017-02-12] MEDS: guaiFENesin ER 600 MG TAB PO SCH (21:39)
--- NOTE | 2017-02-12 22:51 | CON ---
DATE OF CONSULTATION: 02/12/2017 REASON FOR CONSULTATION: Weight loss, moderate calorie malnutrition. CONSULTING PHYSICIAN: Dr. Guanakito Pérez. HISTORY OF PRESENT ILLNESS: The patient is an 81-year-old male with past medical history of coronary artery disease, diabetes, hypertension, hyperlipidemia, COPD, recent history of syncopal events, and acute on chronic congestive heart failure, initially presenting with complaints of increased cough and shortness of breath. Per interview with the patient, he has been having increased shortness of breath, both at rest and exertion, for the last day accompanied with a significant increase in coughing. Given the duration of time period, with the significant coughing and shortness of breath, that prompted evaluation in the [place] ER. In the ER, he was noted to have a significantly elevated BNP of approximately 2350 and admitted for evaluation related to congestive heart failure; however, he was also noted to be very cachectic in appearance with a significant weight loss over the last 10-14 days of approximately 15 pounds unintentionally. Upon questioning the patient, he states that in 2013, he weighed approximately 130 pounds, but has progressively lost weight over the last 3-4 years, losing approximately 10 pounds per year; however, over the last 10-14 days, he has lost around 10-15 pounds due to significantly decreased appetite in association with his increased shortness of breath and cough. When questioned about his weight loss over the last 3 years, he states that his appetite has not been significant and that he has had episodes where he has been unable to tolerate increased feeding. He has attempted to supplement with Ensure twice daily, but has been unable to adequately maintain his weight despite the supplementation. However, he was also recently on a cruise prior to admission here, and per family, he was able to eat an adequate amount of food during the trip, although it did not translate into any significant weight gain upon arriving back to the [place]. REVIEW OF SYSTEMS: A 12-category review of systems was performed with negative responses except for the pertinent positives as listed in the HPI. PAST MEDICAL HISTORY: As per HPI. PAST SURGICAL HISTORY: [place] aortic valve replacement, pacemaker placement, appendectomy. FAMILY HISTORY: Denies any GI malignancies. ALLERGIES: No known drug allergies. OUTPATIENT MEDICATIONS: Altace 10 mg daily, Imdur 30 mg daily, metoprolol succinate 25 mg daily, Lipitor 20 mg daily, mirtazapine 15 mg daily, Breo Ellipta 2 times daily, Spiriva 2 puffs daily, gabapentin 300 mg daily, Legatrin PM half a capsule daily, Glucophage 500 mg twice daily, biotin 10,000 mcg daily , vitamin B1, omega Krill oil, aspirin 81 mg daily, Coenzyme Q10. PHYSICAL EXAMINATION: VITAL SIGNS: Temperature 98.2, pulse 79, blood pressure 121/70, respiratory rate 24, satting 100% on 2 liters nasal cannula. GENERAL: The patient is lying comfortably in bed in no acute distress. Alert and oriented x4, cachectic in appearance. HEENT: Pupils equal, round, reactive to light. Extraocular movements intact. NECK: Supple. No JVD noted. CARDIOVASCULAR: Regular rate and rhythm, although tachycardic rate. No discernible murmurs, gallops, or rubs. RESPIRATORY: Clear to auscultation bilaterally with diminished breath sounds in all lung still. No discernible wheezes or rales. ABDOMEN: Normoactive bowel sounds, soft, nondistended, minimal tenderness to palpation in the midepigastric region, but otherwise no tenderness elicited. EXTREMITIES: No cyanosis, clubbing, or edema. Both upper and lower extremities are severely cachectic in appearance. LABORATORY DATA: CBC with a white blood cell count of 12, hemoglobin 14.3, hematocrit 43.1, platelets 248. Chemistry with sodium 137, potassium 4, chloride 94, carbon dioxide 26, BUN 40, creatinine 1.49, glucose 290, AST 52, ALT 69, alkaline phosphatase 77, total bilirubin 0.8. CK-MB 9.2. BNP 2350, troponin 0.115 (peak), albumin 3.8. Chest x-ray obtained on 02/11/2017 showing no acute chest finding or interval change noted, no pulmonary infiltrates seen during that examination. ASSESSMENT AND PLAN: The patient is an 81-year-old gentleman with a past medical history of coronary artery disease, diabetes, hypertension, hyperlipidemia, chronic obstructive pulmonary disease, recent episodes of syncope, urinary tract infections, presenting with acute on chronic congestive heart failure as well as moderate calorie malnutrition. Moderate calorie malnutrition. Upon interviewing the patient and his family ( and 2 daughters), he has been progressively losing approximately 30 pounds over the last 3-4 years, losing approximately 1-2 pounds per month. Upon questioning the family and the patient, he has been noted to have a decline in his appetite during the same time period and unable to tolerate increased amounts of food. Subsequently, he was attempted on Ensure supplementation as part of an attempt to increase his caloric intake, but despite drinking a half can of Ensure twice daily for the last year, he has been unable to gain a significant amount of weight. However, over the last 1-2 weeks he has had accelerated weight loss of approximately 10- 15 pounds, which in this case is associated with decreased appetite related to increased shortness of breath and coughing. Currently, he denies any evidence for symptoms of dysphagia or odynophagia and can adequately chew and swallow both solid and liquid food. Given his intact ability to swallow adequately, an enteral route by mouth would be preferable for nutritional purposes. However, given his significantly cachectic state, supplementation with Ensure only may not be the best option and may require more protein as evidenced by his moderate /severe catabolic state. At this time, he does not wish to pursue feeding tube placement and does understand the risks and benefit of a procedure such as that. RECOMMENDATIONS: 1. We would consult dietitian services for evaluation of current diet and optimization toward appropriate supplementation to promote weight gain. 2. Defer to primary team for evaluation and chief treatment related to acute on chronic congestive heart failure, which could be treatment contributing to loss of appetite. 3. EGD with PEG tube placement is not indicated at this time per patient preference and preference for enteral route by mouth preferred. We will continue to follow. Please call with any questions. MTDD
[2017-02-13 05:49] LABS: #Lymphocytes 1.9 thou/uL (1.20-3.40); #Monocytes 1.1 thou/uL (0.11-0.59); #Neutrophils 9.7 thou/uL (1.40-6.50); %Basophils 0.1 % (0.0-1.0); %Eosinophils 0.2 % (0.0-10.0); %Lymphocytes 15.2 % (21.0-51.0); %Monocytes 8.2 % (0.0-10.0); %Neutrophils 76.3 % (42.0-75.0); Hemoglobin 14.1 g/dL (14.0-18.0); Mean Corpuscular HGB CONC 32.2 g/dL (32.0-36.0); Mean Corpuscular Hemoglobin 31.3 pg (27.0-31.0); Mean Corpuscular Volume 97.4 fl (80.0-94.0); Mean Platelet Volume 9.2 fL (7.4-10.4); Platelet Count 291 thou/uL (130-400); RBC Distribution Width 13.5 % (11.5-14.5); Red Blood Cell (RBC) Count 4.51 mill/uL (4.70-6.10); White Blood Cell (WBC) Count 12.7 thou/uL (4.8-10.8)
[2017-02-13] MEDS ORDERED: Furosemide 20 MG/2 ML VIAL SLOW IVP SCH (06:00)
[2017-02-13 06:13] LABS: Anion Gap 15 mmol/L (10-20); BUN (Urea Nitrogen) 63 mg/dL (8.4-25.7); Calc. Creatinine Clearance 32 mL/min (70-130); Calcium 9.4 mg/dL (7.8-10.44); Carbon Dioxide 27 mmol/L (23-31); Chloride 96 mmol/L (98-107); Estimated GFR-MDRD 51; Glucose 151 mg/dL (83-110); Potassium 4.3 mmol/L (3.5-5.1); Sodium 134 mmol/L (136-145)
[2017-02-13] MEDS: Mometasone/Formoterol 120 PUFF INHALER INH SCH ×2 (08:03→20:39)
[2017-02-13] MEDS: predniSONE 20 MG TAB PO SCH (08:52)
[2017-02-13] MEDS: Aspirin 81 mg Enteric Coated Tablet PO SCH (08:52)
[2017-02-13] MEDS: guaiFENesin ER 600 MG TAB PO SCH ×2 (08:53→21:37)
[2017-02-13] MEDS: Ramipril 5 MG CAP PO SCH (08:53)
[2017-02-13] MEDS: Enoxaparin Sodium 40 MG/0.4 ML SYRINGE SC SCH (08:53)
[2017-02-13] MEDS: metFORMIN 500 MG TAB PO SCH (08:53)
[2017-02-13] MEDS: Ubidecarenone 50 MG CAP PO SCH (08:54)
[2017-02-13] MEDS: Mirtazapine 15 MG Soltab PO SCH (08:55)
--- NOTE | 2017-02-13 10:32 | PRG ---
DATE OF SERVICE: 02/13/2017 This morning he is awake, alert, responsive. He is slightly better. PHYSICAL EXAMINATION: VITAL SIGNS: Sats are 97% on 2 liters, blood pressure 120/60, temperature 97. I's and O's 603 in, 3 75 out. CHEST: Chest revealed decreased breath sounds, no wheezing. CARDIAC: Normal S1, S2. No gallops. ABDOMEN: Soft, no masses. LABORATORY: White count 10,000, H&H 14 and 43, platelet count normal. Creatinine 1.35, BUN 63. Cul tures are negative. IMPRESSION: 1. Chronic obstructive pulmonary disease. 2. Renal failure. 3. Congestive heart failure. PLAN: From a pulmonary standpoint of view, I will switch him to oral antibiotics. Continue diuretic s. Supportive care. I will follow.
[2017-02-13] MEDS: Benzonatate 100 MG CAP PO PRN (12:06)
[2017-02-13] MEDS: HumaLOG 300 UNITS/3 ML VIAL SC PRN ×3 (12:06→21:38)
--- NOTE | 2017-02-13 17:28 | PRG ---
DATE OF SERVICE: 02/13/2017. REASON FOR CONSULTATION: Weight loss, moderate calorie malnutrition. SUBJECTIVE: The patient is doing well overnight without any overnight events or problems; however, today he states that he has been increasingly short of breath with increased cough limiting physical activity. Otherwise, he denies any nausea, vomiting, fevers, chills, odynophagia, dysphagia, or GI bleeding. OBJECTIVE: VITAL SIGNS: Temperature 97.6, pulse 91, blood pressure 111/63, respiratory rate 16, satting 94% on 2 liters nasal cannula. GENERAL: The patient is lying comfortably in bed with intermittent coughing. He is alert and oriented x4. CARDIOVASCULAR: Regular rate and rhythm with no discernible murmurs, gallops or rubs. RESPIRATORY: Clear to auscultation bilaterally, diminished breath sounds in all lung still. No discernible wheezes or rales. ABDOMEN: Normoactive bowel sounds, soft, nontender, nondistended. EXTREMITIES: No cyanosis, clubbing or edema. Both upper and lower extremities are severely cachectic in appearance. LABORATORY DATA: CBC with white blood cell count of 12.7, hemoglobin 14.1, hematocrit 43.9, platelets 291. Chemistry with sodium of 134, potassium 4.3, chloride 96, CO2 of 27, BUN 63, creatinine 1.35, glucose 151. IMAGING STUDIES: No current GI imaging available for review. ASSESSMENT: The patient is an 81-year-old gentleman with a past medical history of coronary artery disease, diabetes, hypertension, hyperlipidemia, chronic obstructive pulmonary disease, recent episodes of syncope, urinary tract infection presenting with acute on chronic congestive heart failure with moderate calorie malnutrition. Moderate calorie malnutrition The patient presenting with a 30-pound weight loss over the last 3-4 years, but increasing or acceleration of this weight loss within the last 2-3 weeks due to significant illness. Supplementation with Ensure has been attempted over the last year without a significant amount of weight gain. Currently, denies any symptoms of dysphagia or odynophagia and can adequately chew and swallow both solid and liquid food. Given his intact ability to swallow adequately, he would be preferable for nutritional purposes to continue the enteral route by mouth; however, given his severely cachectic state, supplementation is advised. Dietary or nutritional consultation was performed today with feeding plan outlined for both patient and . At this time, he does not wish to pursue feeding tube placement and does understand the risks and benefits associated with the procedure. However, this is a potential option for moderate to severe calorie malnutrition. RECOMMENDATIONS: 1. Would comply with dietitian services for dietary evaluation and supplementation towards the promotion of weight gain. 2. Defer to primary team for evaluation and treatment associated with increased cough/congestion and probable acute on chronic congestive heart failure contributing to loss of appetite. 3. EGD with PEG tube is not indicated at this time per patient preference We will sign off at this time. Please have patient follow up with Dr. Baker in the GI clinic within 2 weeks of discharge. MTDD
--- NOTE | 2017-02-13 17:58 | PDOC.PN ---
- Subjective Encounter Start Date: 02/13/17 Encounter Start Time: 17:45 Subjective: f/u for ? sepsis with negative cultures and suspected pulmonic source. -: Currently on Omnicef 300mg BID and feeling better. Appetite improved this -: pm. - Objective Resuscitation Status: Resuscitation Status FULL:Full Resuscitation MAR Reviewed: Yes Vital Signs & Weight: Vital Signs (12 hours) Temp Pulse Pulse Pulse Resp BP BP 02/13/17 15:35 97.6 F 91 16 02/13/17 14:46 86 94 112/57 L 126/65 02/13/17 11:35 98.5 F 89 16 02/13/17 08:02 72 18 02/13/17 07:28 98.5 F 89 16 02/13/17 07:24 97.4 F L 77 18 BP Pulse Ox Pulse Ox Pulse Ox 02/13/17 15:35 111/63 94 L 02/13/17 14:46 92 L 95 02/13/17 11:35 103/59 L 92 L 02/13/17 08:02 98 02/13/17 07:28 94 L 02/13/17 07:24 120/61 94 L Weight Admit Weight 105 lb 8 oz Weight 113 lb I&O: 02/12/17 02/13/17 02/14/17 06:59 06:59 06:59 Intake Total 603 Output Total 375 Balance 228 Result Diagrams: 02/13/17 05:31 02/13/17 05:32 Additional Labs: Accuchecks 02/13/17 02/13/17 02/13/17 16:44 11:33 05:52 POC Glucose 256 H 253 H 138 H 02/12/17 02/12/17 20:27 17:33 POC Glucose 204 H 153 H Microbiology 02/11/17 10:35 Nasal swab Influenza Types A,B Direct EIA - Final 02/11/17 11:04 Venous blood - Left Hand Blood Culture - Preliminary NO GROWTH AT 48 HOURS 02/11/17 11:01 Venous blood - Right Hand Blood Culture - Preliminary NO GROWTH AT 48 HOURS Laboratory Tests 02/11/17 02/11/17 02/12/17 10:52 11:04 03:54 WBC 17.8 H Creatinine 0.99 1.49 H 02/12/17 03:54 WBC 12.0 H Creatinine Radiology Reviewed by me: Yes (2D echo - EF 55%, bioprosthetic AV, mod MR) EKG Reviewed by me: Yes (Tele - V-paced in 80's) Phys Exam - Physical Examination cachetic male, alert, responsive HEENT: PERRLA Neck: no JVD, supple diminished in bases Cardiovascular: RRR Gastrointestinal: soft, non-tender, no distention, positive bowel sounds generalized atrophy Musculoskeletal: no edema, pulses present Neurological: normal sensation, moves all 4 limbs Psychiatric: A&O x 3 Skin: normal turgor, cap refill <2 seconds Dx/Plan (1) PNA (pneumonia) Code(s): J18.9 - PNEUMONIA, UNSPECIFIED ORGANISM Status: Suspected Comment: ? CAP with gm + cocci, continue Omnicef 300mg BID, pulmonary supportive measures (2) Malnutrition Code(s): E46 - UNSPECIFIED PROTEIN-CALORIE MALNUTRITION Status: Acute Qualifiers: Malnutrition type: protein-calorie malnutrition Protein-calorie malnutrition severity: moderate Qualified Code(s): E44.0 - Moderate protein- calorie malnutrition Comment: Trial Megace 40mg BID, Ensure TID (3) CAD (coronary artery disease) Code(s): I25.10 - ATHSCL HEART DISEASE OF [place] CORONARY ARTERY W/O ANG PCTRS Status: Chronic (4) Diabetes type 2, controlled Code(s): E11.9 - TYPE 2 DIABETES MELLITUS WITHOUT COMPLICATIONS Status: Chronic Comment: Labile due to steroids, ISS, decrease Glucophage 500mg daily due renal function decline (5) Hypertension Code(s): I10 - ESSENTIAL (PRIMARY) HYPERTENSION Status: Chronic Comment: Stable - Plan plan discussed w/ family, continue antibiotics, PT/OT, social sciences department chair, respiratory therapy, out of bed/ambulate, DVT proph w/SCDs Stable overall -: Continue Omnicef 300mg BID -: Continue Duonebs, Dulera and Prednisone -: Trial Megace 40mg BID -: OOB/ambulate with assist * AM lab: BMP, CBC
[2017-02-13] MEDS ORDERED: Megestrol Acetate 40 MG TAB PO SCH (18:15)
[2017-02-13] MEDS: Gabapentin 300 MG CAP PO SCH (21:37)
[2017-02-13] MEDS: Atorvastatin Calcium 20 MG TAB PO SCH (21:37)
[2017-02-13] MEDS: Cefdinir 300 MG CAP PO SCH (21:37)
[2017-02-13] MEDS: Megestrol Acetate 40 MG TAB PO SCH (21:38)
[2017-02-13] MEDS: Insulin Regular 300 UNITS/3 ML VIAL SC PRN (21:43)
[2017-02-13] MEDS: Acetaminophen 325 MG TAB PO PRN (23:13)
[2017-02-14] MEDS: Benzonatate 100 MG CAP PO PRN ×2 (00:13→06:02)
[2017-02-14 06:00] LABS: Anion Gap 16 mmol/L (10-20); BUN (Urea Nitrogen) 78 mg/dL (8.4-25.7); Calc. Creatinine Clearance 32 mL/min (70-130); Carbon Dioxide 29 mmol/L (23-31); Chloride 91 mmol/L (98-107); Estimated GFR-MDRD 54; Glucose 309 mg/dL (83-110); Sodium 132 mmol/L (136-145)
[2017-02-14 06:21] LABS: Acanthocytes SLIGHT = 1-5 cells (100X) (None Seen); Band 3 % (5-11); Hemoglobin 13.3 g/dL (14.0-18.0); Lymphocytes 2 % (21-51); MDiff Complete? YES; Mean Corpuscular HGB CONC 32.4 g/dL (32.0-36.0); Mean Corpuscular Hemoglobin 31.6 pg (27.0-31.0); Mean Corpuscular Volume 97.6 fl (80.0-94.0); Mean Platelet Volume 8.4 fL (7.4-10.4); Monocytes 6 % (0-10); Neutrophil 89 % (42-75); Platelet Count 300 thou/uL (130-400); RBC Distribution Width 13.1 % (11.5-14.5); Red Blood Cell (RBC) Count 4.22 mill/uL (4.70-6.10); White Blood Cell (WBC) Count 20.3 thou/uL (4.8-10.8)
[2017-02-14] MEDS: Mometasone/Formoterol 120 PUFF INHALER INH SCH ×2 (07:17→19:49)
[2017-02-14] MEDS: Aspirin 81 mg Enteric Coated Tablet PO SCH (08:44)
[2017-02-14] MEDS: predniSONE 20 MG TAB PO SCH (08:44)
[2017-02-14] MEDS: metFORMIN 500 MG TAB PO SCH (08:44)
[2017-02-14] MEDS: Cefdinir 300 MG CAP PO SCH ×2 (08:44→21:05)
[2017-02-14] MEDS: guaiFENesin ER 600 MG TAB PO SCH ×2 (08:44→21:05)
[2017-02-14] MEDS: Losartan 25 MG TAB PO SCH (08:45)
[2017-02-14] MEDS: Megestrol Acetate 40 MG TAB PO SCH ×2 (08:45→21:06)
[2017-02-14] MEDS: Ubidecarenone 50 MG CAP PO SCH (08:46)
[2017-02-14] MEDS: Mirtazapine 15 MG Soltab PO SCH (08:46)
[2017-02-14] MEDS: HumaLOG 300 UNITS/3 ML VIAL SC PRN ×3 (08:49→17:26)
--- NOTE | 2017-02-14 09:48 | PRG ---
DATE OF SERVICE: 02/14/2017 He presented with respiratory failure. His BNP was 2350, markedly elevated suggestive of CHF even th ough his systolic function may be normal in spite of a diastolic component, his troponin was elevate d when he came in at 0.115. His BUN was 40, creatinine 1.59, which has worsened since admission. PHYSICAL EXAMINATION: VITAL SIGNS: Blood pressure is 160/74, O2 sats 90 on 2 liters, respirations 18. CHEST: Chest reveals decreased breath sounds without any wheezing. CARDIAC: Normal S1, S2. No gallops. LABORATORY DATA: White count 20,000, H&H 13 and 41, platelet count normal. Creatinine is 1.2, BUN 7 8, glucose 288. The patient symptomatically he says he is better. IMPRESSION: 1. Chronic obstructive pulmonary disease exacerbation, bronchitis. 2. Leukocytosis. 3. Renal failure. 4. Elevated BNP. Probably has a large component of diastolic dysfunction. Prosthetic valve is in place. PLAN: X-ray is being ordered. Continue antibiotics, steroids, neb treatments. Avoid diuretics unti l his renal function improves. I will follow.
--- NOTE | 2017-02-14 18:33 | PDOC.PN ---
- Subjective Encounter Start Date: 02/14/17 Encounter Start Time: 18:25 Subjective: f/u for sepsis of unclear source but suspected pulmonic. Currently on -: Omnicef, Prednisone, Dulera and Duonebs. Overall feeling better. - Objective Resuscitation Status: Resuscitation Status FULL:Full Resuscitation MAR Reviewed: Yes Vital Signs & Weight: Vital Signs (12 hours) Temp Pulse Pulse Pulse Resp BP BP 02/14/17 15:15 97.3 F L 83 24 H 02/14/17 14:10 89 86 123/75 125/60 02/14/17 12:15 97.4 F L 86 16 02/14/17 10:17 86 80 124/58 L 110/59 L 02/14/17 08:00 97.4 F L 86 16 BP Pulse Ox Pulse Ox Pulse Ox 02/14/17 15:15 101/54 L 94 L 02/14/17 14:10 02/14/17 12:15 106/53 L 92 L 02/14/17 10:17 94 L 92 L 02/14/17 08:00 130/61 94 L Weight Admit Weight 105 lb 8 oz Weight 108 lb 4.8 oz I&O: 02/13/17 02/14/17 02/15/17 06:59 06:59 06:59 Intake Total 603 1670 Output Total 375 380 Balance 228 1290 Result Diagrams: 02/14/17 04:47 02/14/17 04:47 Additional Labs: Accuchecks 02/14/17 02/14/17 02/14/17 16:38 12:13 05:39 POC Glucose 280 H 259 H 288 H 02/13/17 20:29 POC Glucose 421 H Microbiology 02/11/17 10:35 Nasal swab Influenza Types A,B Direct EIA - Final 02/11/17 11:04 Venous blood - Left Hand Blood Culture - Preliminary NO GROWTH AT 48 HOURS 02/11/17 11:01 Venous blood - Right Hand Blood Culture - Preliminary NO GROWTH AT 48 HOURS Laboratory Tests 02/11/17 02/11/17 02/12/17 10:52 11:04 03:54 WBC 17.8 H Creatinine 0.99 1.49 H 02/12/17 02/13/17 02/13/17 03:54 05:31 05:32 WBC 12.0 H 12.7 H Creatinine 1.35 H EKG Reviewed by me: Yes (Tele - V-paced in 80's) Phys Exam - Physical Examination Constitutional: NAD HEENT: PERRLA, oral pharynx no lesions Neck: no JVD, supple diminished in bases Cardiovascular: RRR Gastrointestinal: soft, non-tender, no distention, positive bowel sounds generalized cachexia Musculoskeletal: no edema, pulses present Neurological: normal sensation, moves all 4 limbs Psychiatric: A&O x 3 Skin: normal turgor, cap refill <2 seconds Dx/Plan (1) PNA (pneumonia) Code(s): J18.9 - PNEUMONIA, UNSPECIFIED ORGANISM Status: Suspected Comment: ? CAP with gm + cocci, continue Omnicef 300mg BID, pulmonary supportive measures (2) Malnutrition Code(s): E46 - UNSPECIFIED PROTEIN-CALORIE MALNUTRITION Status: Acute Qualifiers: Malnutrition type: protein-calorie malnutrition Protein-calorie malnutrition severity: moderate Qualified Code(s): E44.0 - Moderate protein- calorie malnutrition Comment: Trial Megace 40mg BID, Ensure TID (3) CAD (coronary artery disease) Code(s): I25.10 - ATHSCL HEART DISEASE OF [place] CORONARY ARTERY W/O ANG PCTRS Status: Chronic Comment: Continue ASA and Lipitor, Nitrates and Metoprolol XL (4) Diabetes type 2, controlled Code(s): E11.9 - TYPE 2 DIABETES MELLITUS WITHOUT COMPLICATIONS Status: Chronic Comment: Labile due to steroids, ISS, decrease Glucophage 500mg daily due renal function decline (5) Hypertension Code(s): I10 - ESSENTIAL (PRIMARY) HYPERTENSION Status: Chronic Comment: Stable - Plan plan discussed w/ family, continue antibiotics, PT/OT, social security assessor, respiratory therapy, out of bed/ambulate, DVT proph w/SCDs Stable overall -: Continue Omnicef 300mg BID -: OOB/ambulate with assist -: Continue Megace and Ensure -: PT for mobilization * Robitussin 200mg po q4h prn * Likely home in 24h
[2017-02-14] MEDS ORDERED: guaiFENesin 100 MG/5 ML UDCUP PO PRN (18:51)
[2017-02-14] MEDS: Gabapentin 300 MG CAP PO SCH (21:05)
[2017-02-14] MEDS: Atorvastatin Calcium 20 MG TAB PO SCH (21:05)
[2017-02-14] MEDS: Acetaminophen 325 MG TAB PO PRN (21:06)
[2017-02-15] MEDS: Mometasone/Formoterol 120 PUFF INHALER INH SCH ×2 (06:56→18:55)
--- NOTE | 2017-02-15 08:10 | PRG ---
DATE OF SERVICE: 02/15/2017 Mo Durham is better, less short of breath. His was concerned, he is encephalopathic. PHYSICAL EXAMINATION: VITAL SIGNS: Temperature 97, O2 sat 97% on 2 liters, blood pressure 130/64. His I's and O's are 165 0 in, 380 out. CHEST: Chest reveals decreased breath sounds, no wheezing. CARDIAC: Normal S1, S2. ABDOMEN: Soft, no masses. Glucose is normal. BNP is back to 145 now. IMPRESSION: 1. Chronic obstructive pulmonary disease exacerbation. 2. Bronchitis. PLAN: He appears to have improved. If he is ambulating tomorrow more than likely he can be dischar ged home. I will follow.
--- NOTE | 2017-02-15 08:57 | RAD ---
TWO VIEWS CHEST: DATE: 02/15/17. PROVIDED CLINICAL HISTORY: congestive heart failure. FINDINGS: Comparison is made with the study dated 02/11/17. Cardiac and mediastinal silhouette is unchanged in a ppearance. Multiple lead wires overlie the chest, limiting evaluation. Left-sided cardiac pacing de vice was again demonstrated with lead tips in similar positions. Aortic stent graft material is agai n seen. The lung parenchyma appears unchanged. No pleural fluid or pneumothorax apparent. Vascular calcification is seen. IMPRESSION: Chronic obstructive disease without evidence for an acute cardiopulmonary process. POS: [facility]
[2017-02-15] MEDS: Acetaminophen 325 MG TAB PO PRN (09:43)
[2017-02-15] MEDS: Cefdinir 300 MG CAP PO SCH ×2 (09:44→20:57)
[2017-02-15] MEDS: Losartan 25 MG TAB PO SCH (09:44)
[2017-02-15] MEDS: predniSONE 20 MG TAB PO SCH (09:45)
[2017-02-15] MEDS: guaiFENesin ER 600 MG TAB PO SCH ×2 (09:45→20:57)
[2017-02-15] MEDS: Ubidecarenone 50 MG CAP PO SCH ×2 (09:46→09:49)
[2017-02-15] MEDS: metFORMIN 500 MG TAB PO SCH (09:46)
[2017-02-15] MEDS: Furosemide 20 MG TAB PO SCH (09:46)
[2017-02-15] MEDS: Aspirin 81 mg Enteric Coated Tablet PO SCH (09:46)
[2017-02-15] MEDS: Megestrol Acetate 40 MG TAB PO SCH ×2 (09:47→20:57)
[2017-02-15] MEDS: Mirtazapine 15 MG Soltab PO SCH (09:50)
[2017-02-15] MEDS: Benzonatate 100 MG CAP PO PRN ×2 (10:54→18:29)
--- NOTE | 2017-02-15 11:44 | PDOC.PN ---
- Subjective Encounter Start Date: 02/15/17 Encounter Start Time: 11:35 Subjective: f/u for COPD/bronchitis. Still with coughing some productive. -: No fever or chills. Appetite ok. Voiding ok. c/o some abd cramps -: after coughing. - Objective Resuscitation Status: Resuscitation Status FULL:Full Resuscitation MAR Reviewed: Yes Vital Signs & Weight: Vital Signs (12 hours) Temp Pulse Resp BP Pulse Ox 02/15/17 06:54 79 14 98 02/15/17 04:00 97.4 F L 90 18 134/64 96 02/15/17 00:44 69 20 97 02/15/17 00:00 122/58 L Weight Admit Weight 105 lb 8 oz Weight 111 lb 14.4 oz I&O: 02/14/17 02/15/17 02/16/17 06:59 06:59 06:59 Intake Total 1670 240 Output Total 380 550 Balance 1290 -310 Result Diagrams: 02/14/17 04:47 02/14/17 04:47 Additional Labs: Accuchecks 02/15/17 02/15/17 02/15/17 11:21 05:57 00:53 POC Glucose 239 H 229 H 341 H 02/14/17 02/14/17 16:38 12:13 POC Glucose 280 H 259 H Radiology Reviewed by me: Yes (PCXR - no acute infiltrates, COPD changes) EKG Reviewed by me: Yes (Tele - V-paced) Phys Exam - Physical Examination Constitutional: NAD HEENT: PERRLA, oral pharynx no lesions Neck: no JVD, supple occasional wheeze o/w clear Cardiovascular: RRR Gastrointestinal: soft, non-tender, no distention, positive bowel sounds Musculoskeletal: no edema, pulses present Neurological: normal sensation, moves all 4 limbs Skin: normal turgor, cap refill <2 seconds Dx/Plan (1) COPD (chronic obstructive pulmonary disease) Status: Acute Qualifiers: COPD type: COPD with acute exacerbation Qualified Code(s): J44.1 - Chronic obstructive pulmonary disease with (acute) exacerbation Comment: suspected concomitant bronchitis, continue Omnicef, Duonebs, Prednisone (2) Malnutrition Code(s): E46 - UNSPECIFIED PROTEIN-CALORIE MALNUTRITION Status: Acute Qualifiers: Malnutrition type: protein-calorie malnutrition Protein-calorie malnutrition severity: moderate Qualified Code(s): E44.0 - Moderate protein- calorie malnutrition Comment: Trial Megace 40mg BID, Ensure TID (3) CAD (coronary artery disease) Code(s): I25.10 - ATHSCL HEART DISEASE OF [place] CORONARY ARTERY W/O ANG PCTRS Status: Chronic Comment: Continue ASA and Lipitor, Nitrates and Metoprolol XL (4) Diabetes type 2, controlled Code(s): E11.9 - TYPE 2 DIABETES MELLITUS WITHOUT COMPLICATIONS Status: Chronic Comment: Labile due to steroids, ISS, decrease Glucophage 500mg daily due renal function decline (5) Hypertension Code(s): I10 - ESSENTIAL (PRIMARY) HYPERTENSION Status: Chronic Comment: Stable - Plan plan discussed w/ family, continue antibiotics, PT/OT, director social, respiratory therapy, out of bed/ambulate, DVT proph w/SCDs Stable overall -: Continue Omnicef, Duonebs, Prednisone -: Continue Megace -: OOB/ambulate with PT -: Likely home in 24h * .
[2017-02-15] MEDS: HumaLOG 300 UNITS/3 ML VIAL SC PRN ×2 (11:45→18:28)
[2017-02-15] MEDS: Atorvastatin Calcium 20 MG TAB PO SCH (20:57)
[2017-02-15] MEDS: Gabapentin 300 MG CAP PO SCH (20:57)
[2017-02-15] MEDS: Insulin Regular 300 UNITS/3 ML VIAL SC PRN (21:05)
[2017-02-16] MEDS: Benzonatate 100 MG CAP PO PRN (05:25)
[2017-02-16] MEDS: Mometasone/Formoterol 120 PUFF INHALER INH SCH (08:28)
[2017-02-16] MEDS: Losartan 25 MG TAB PO SCH (09:32)
[2017-02-16] MEDS: Ubidecarenone 50 MG CAP PO SCH (09:33)
[2017-02-16] MEDS: Aspirin 81 mg Enteric Coated Tablet PO SCH (09:33)
[2017-02-16] MEDS: Furosemide 20 MG TAB PO SCH (09:33)
[2017-02-16] MEDS: Cefdinir 300 MG CAP PO SCH (09:33)
[2017-02-16] MEDS: predniSONE 20 MG TAB PO SCH (09:35)
[2017-02-16] MEDS: guaiFENesin ER 600 MG TAB PO SCH (09:35)
[2017-02-16] MEDS: metFORMIN 500 MG TAB PO SCH (09:36)
[2017-02-16] MEDS: Megestrol Acetate 40 MG TAB PO SCH (09:37)
[2017-02-16] MEDS: Mirtazapine 15 MG Soltab PO SCH (09:37)
[2017-02-16 12:39] VITALS: BP 133/65; TEMP 96.3
[2017-02-16] MEDS: HumaLOG 300 UNITS/3 ML VIAL SC PRN (13:04)
--- NOTE | 2017-02-16 13:22 | PQF ---
CLINICAL DOCUMENTATION IMPROVEMENT CLARIFICATION FORM: ICD-10 Updated PLEASE DO AN ADDENDUM TO THE PROGRESS NOTE WITH ANY DOCUMENTATION UPDATES OR ADDITIONS AND CARRY THROUGH TO DC SUMMARY. THANK YOU. DATE: 02/16/17 ATTN: Dr. Peters Please exercise your independent, professional judgment in responding to the clarification form. Clinical indicators are provided on the bottom of this form for your review Please check appropriate box(s) to clarify if the following diagnosis has been ruled in our ruled out: SEPSIS. [ ] Ruled in diagnosis [ ] Continue to treat [ ] Resolved [ ] Ruled out diagnosis [ x ] Cannot rule out diagnosis [ ] Other diagnosis [ ] Unable to determine In addition, please specify: Present on Admission (POA): [ x ] Yes [ ] No [ ] Unable to determine For continuity of documentation, please document condition throughout progress notes and discharge summary. Thank You. CLINICAL INDICATORS - SIGNS / SYMPTOMS / LABS ED RECORD: PULSE 82-106, RESP 20-32 H&P: LEUKOCYTOSIS W/ 17,800 WHITE CELLS SEPSIS: PRESENTATION IS CONSISTENT W/ SEPSIS, SUSPECTED SOURCE OF INFECTION IN THE RESPIRATORY TRACT. PN 02/14: F/U FOR SEPSIS OF UNCLEAR SOURCE BUT SUSPECTED PULMONIC. PULMONARY PN 02/15: COPD EXACERBATION BRONCHITIS PN 02/15: PCXR - NO ACUTE INFILTRATES, COPD CHANGES. RISKS: H&P: AGE 81. DM 2, CAD, CHF EXACERBATION. PULM. CONSULT: HX OF ASTHMA, COPD. TREATMENT: CPOE 02/11: ROCEPHIN 1 GM IV Q 24 HR. DC'D CPOE 02/13: OMNICEF 300 MG PO BID. Thank you, Keesha (This form is maintained as a part of the permanent medical record) 2014 [employer] All Rights Reserved Keesha Quintero RN, BSN [email or web address] Office: [phone] [facility]
--- NOTE | 2017-02-16 13:55 | PRG ---
DATE OF SERVICE: 02/16/2017 SUBJECTIVE: The patient is much better cough. PHYSICAL EXAMINATION: VITAL SIGNS: Temperature 97, pulse 74, respirations 15, blood pressure 130/68, sats 92% on room air. CHEST: Decreased breath sounds, no wheezing. CARDIAC: Normal S1-S2. No gallops. ABDOMEN: Soft, no masses. IMPRESSION: Exacerbation of bronchitis, BNP was returned to normal, probably stress induced, congest royal heart failure. PLAN: He can be discharged home, taper his prednisone over 2 weeks. Otherwise he has got pretty muc h most of his medication at home including Spiriva, Symbicort, and rescue inhaler.
[2017-02-16 15:34] VITALS: BMI 15.4
--- NOTE | 2017-02-16 20:49 | DIS ---
DATE OF ADMISSION: 02/11/2017 DATE OF DISCHARGE: 02/16/2017 DISCHARGE DIAGNOSES: 1. Chronic obstructive pulmonary disease exacerbation with bronchitis. 2. Coronary artery disease, chronic and stable. 3. Question of sepsis, organism not identified, suspected pulmonic source. 4. Acute diastolic congestive heart failure exacerbation with preserved ejection fraction of 55%. 5. Hyponatremia, mild. 6. Moderate to severe protein calorie malnutrition. 7. Chronic kidney disease, stage 2-3. CONSULTATIONS: Dr. Garduno with Pulmonology Service. Dr. Jacobson with GI service. Dr. Pérez with Car diology Service. PERTINENT LABORATORY AND X-RAY FINDINGS: Creatinine ranged between 0.99-1.49 with estimated GFR rang ing between 45-73, lactic acid level ranged between 1.8-3.4, calcium 10.0, BNP ranged between 145-235 1, troponin ranged between 0.064-0.115. CBC showed a white blood cell count ranged between 12.0-20.3 , hemoglobin ranged between 13-15.4. Blood cultures x2 from 02/11/2017 showed no growth at 48 hours. Influenza A and B antigen dated 02/11/2017 negative. Portable chest x-ray dated 02/11/2017 showed no acute cardiopulmonary process. A 2D transthoracic echocardiogram dated 02/12/2017 showed ejection fraction of 55% to 60%. Bioprosthetic aortic valve. Moderate mitral valve regurgitation. Portable chest x-ray dated 02/15/2017 showed chronic changes without acute process. HOSPITAL COURSE: The patient was initially admitted to the telemetry unit after presenting with incr eased cough and shortness of breath with initial diagnosis of sepsis suspected pulmonic etiology. Th e patient was placed on broad spectrum IV antibiotic therapy and given bronchodilator therapy and IV Solu-Medrol. The patient was also noted with concomitant elevated BNP of over 2000 and concern for a cute decompensated congestive heart failure. The patient received IV Lasix as well as evaluation by the Cardiology Service with recommendations for ongoing diuretic therapy and echocardiogram evaluatio n. The patient had rapid improvement in BNP from over 2000 to 145. The patient's diuretic therapy w as tapered appropriately, transitioning to oral Lasix 20 mg daily. The patient was also managed for COPD exacerbation with concomitant bronchitis with oral antibiotics and tapering regimen of prednison e. The patient was followed by the Pulmonology Service throughout the hospital course with recommend ations for general pulmonary supportive measures, mucolytics and bronchodilator therapy. The patient was slow to clinically improve; however, was ambulatory with assistance. The patient received initi al trial of Megace after concern for moderate protein calorie malnutrition. The patient's appetite d id improve over the hospital course with recommendations for low dose Megace on discharge. Overall, the patient remained clinically stable through the remainder of the hospital course and ready for dis charge on 02/16/2017. DISCHARGE MEDICATIONS: 1. Aspirin enteric coated 81 mg 1 tab p.o. daily. 2. Lipitor 20 mg one tab p.o. at bedtime. 3. Biotin 5000 mcg p.o. daily. 4. Omnicef 300 mg p.o. b.i.d. x5 days. 5. Breo Ellipta 100 mcg/25 mcg 1 inhalation p.o. b.i.d. 6. Lasix 20 mg 1 tab p.o. daily. 7. Gabapentin 300 mg p.o. at bedtime. 8. Mucinex ER 1200 mg p.o. b.i.d. 9. Isosorbide mononitrate 30 mg p.o. daily. 10. Krill oil 300 mg p.o. daily. 11. Megace 40 mg 1 tab p.o. daily. 12. Metformin 500 mg p.o. b.i.d. 13. Metoprolol XL 25 mg p.o. daily. 14. Remeron 15 mg p.o. daily. 15. Prednisone 10 mg 2 tabs p.o. b.i.d. x3 days, followed by 3 tabs p.o. daily x3 days, followed by 2 tabs p.o. daily x3 days, followed by 1 tab p.o. daily x3 days. 16. Altace 10 mg p.o. daily. 17. Vitamin B1 one tablet p.o. daily. 18. Stiolto Respimat 2 inhalations daily. 19. Coenzyme Q10 of 100 mg p.o. daily. FOLLOWUP: The patient may follow up with his primary care provider, Dr. Gwyn Sosa within 7 days of discharge. The patient will follow with Dr. Garduno on 03/08/2017 at 11:00 a.m. The patient will foll ow up with Dr. Guanakito Pérez and to call his office for appointment time and date. The patient may a lso follow up with cardiac rehabilitation services on 03/05/2017 at 8:00 a.m. The patient also given referral to [facility]. CONDITION ON DISCHARGE: Fair. ACTIVITY: Ad ludin. DIET: Regular. CODE STATUS: FULL. DISPOSITION: Home on 02/16/2017. Total time preparing and coordinating discharge was 40 minutes.
== END 2017-02-16 16:15 | disposition home or self-care (01) | DRG 871 ==
LOC: ERS 10:18 → ERHOLD 12:38 → 2NO 02-12 13:16
PROVIDERS: ADMIT Internal Medicine; ATTEND Internal Medicine
PROC: 5A09357 Assistance with Respiratory Ventilation, Less than 24 Consecutive Hours, Continuous Positive Airway Pressure (ICD-10-PCS; principal; 2017-02-11)
DX: A41.9 Sepsis, unspecified organism (principal); I50.33 Acute on chronic diastolic (congestive) heart failure; J96.20 Acute and chronic respiratory failure, unspecified whether with hypoxia or hypercapnia; E44.0 Moderate protein-calorie malnutrition; R64 Cachexia; J44.1 Chronic obstructive pulmonary disease with (acute) exacerbation; I13.0 Hypertensive heart and chronic kidney disease with heart failure and stage 1 through stage 4 chronic kidney disease, or unspecified chronic kidney disease; E87.1 Hypo-osmolality and hyponatremia; Z68.1 Body mass index [BMI] 19.9 or less, adult; E11.22 Type 2 diabetes mellitus with diabetic chronic kidney disease; I25.10 Atherosclerotic heart disease of native coronary artery without angina pectoris; E78.5 Hyperlipidemia, unspecified; Z95.5 Presence of coronary angioplasty implant and graft; Z95.0 Presence of cardiac pacemaker; N18.2 Chronic kidney disease, stage 2 (mild)
CPT/HCPCS: 36415; 36416; 71045; 71046; 80048; 80053; 81003; 82553; 83605; 83880; 84484; 85007; 85025; 85027; 85610; 85730; 87040; 93005; 93306; 93798; 94640; 94760; 96365; 96366; 96367; 96375; 96376; A4216; G8978-GP-CJ; G8979-GP-CJ; G8980-GP-CJ; J0456; J0696; J1650; J1940; J1956; J2543; J2930; J7050; J7506; J7620; S0179

== ENCOUNTER 2017-04-04 07:21 | Emergency (ER) | payer MEDICARE ==
[2017-04-04 07:51] LABS: #Eosinphils 0.1 thou/uL (0.0-0.7); #Lymphocytes 1.2 thou/uL (1.20-3.40); #Monocytes 0.8 thou/uL (0.11-0.59); #Neutrophils 9.2 thou/uL (1.40-6.50); %Basophils 0.4 % (0.0-1.0); %Eosinophils 0.5 % (0.0-10.0); %Lymphocytes 10.8 % (21.0-51.0); %Monocytes 7.1 % (0.0-10.0); %Neutrophils 81.1 % (42.0-75.0); Hemoglobin 12.5 g/dL (14.0-18.0); Mean Corpuscular HGB CONC 33.4 g/dL (32.0-36.0); Mean Corpuscular Hemoglobin 32.1 pg (27.0-31.0); Mean Corpuscular Volume 96.2 fl (80.0-94.0); Mean Platelet Volume 8.3 fL (7.4-10.4); Platelet Count 192 thou/uL (130-400); RBC Distribution Width 14.4 % (11.5-14.5); Red Blood Cell (RBC) Count 3.91 mill/uL (4.70-6.10); White Blood Cell (WBC) Count 11.3 thou/uL (4.8-10.8)
[2017-04-04 08:19] LABS: ALT (SGPT) 13 U/L (8-55); AST (SGOT) 24 U/L (5-34); Albumin 3.8 g/dL (3.4-4.8); Alkaline Phosphatase 58 U/L (40-150); Anion Gap 14 mmol/L (10-20); BUN (Urea Nitrogen) 31 mg/dL (8.4-25.7); Bilirubin, Total 0.5 mg/dL (0.2-1.2); Calc. Creatinine Clearance 0 mL/min (70-130); Calcium 8.6 mg/dL (7.8-10.44); Carbon Dioxide 22 mmol/L (23-31); Chloride 105 mmol/L (98-107); Estimated GFR-MDRD 55; Globulin 2.5 g/dL (2.4-3.5); Glucose 114 mg/dL (83-110); Potassium 3.9 mmol/L (3.5-5.1); Protein, Total 6.3 g/dL (5.8-8.1); Sodium 137 mmol/L (136-145)
[2017-04-04 08:44] LABS: Magnesium 1.7 mg/dL (1.6-2.6)
--- NOTE | 2017-04-04 08:57 | RAD ---
FRONTAL RADIOGRAPH CHEST: Date: 04-04-17 Comparison: 02-11-17 History: Syncope, chest pain. FINDINGS: No pneumothorax or pleural fluid. No focal consolidation or alveolar edema. Heart and mediastinal con tours are grossly unremarkable. There is atherosclerotic calcification in the aortic arch. Stent material overlies the midline medias tinum. Stable dual-lead transvenous pacing device. Stable interstitial prominence and pulmonary hyper inflation suggests COPD in the proper clinical setting. IMPRESSION: Stable appearance of the chest - no acute findings. POS: [facility]
[2017-04-04 10:25] LABS: CKMB 3.9 ng/mL (0-6.6); Troponin I 0.015 ng/mL (< 0.028)
[2017-04-04 10:29] LABS: Bilirubin Negative (Negative); Blood, Urine Negative (Negative); Clarity CLEAR (Clear); Glucose, Urine (Dipstick) Negative (Negative); Leukocyte Negative (Negative); Nitrite Negative (Negative); Protein, Urine (Dipstick) Negative (Neg-Trace); Specific Gravity, Urine 1.013 (1.002-1.036); Urobilinogen 0.2 mg/dL (0.2-1.0)
--- NOTE | 2017-04-07 14:25 | EKG ---
Test Reason : SYNCOPE Blood Pressure : / mmHG Vent. Rate : 070 BPM Atrial Rate : 070 BPM P-R Int : 230 ms QRS Dur : 156 ms QT Int : 480 ms P-R-T Axes : 000 -84 073 degrees QTc Int : 518 ms AV sequential or dual chamber electronic pacemaker Confirmed by RANDY CLAROS ([id number]), technical editor HUA MENDEZ ([id number]) on 04/07/2017 2:24:47 PM Referred By: HYACINTH Confirmed By:RANDY CLAROS
== END 2017-04-04 11:32 | disposition home or self-care (01) ==
LOC: ERS 07:21
DX: R55 Syncope and collapse (principal); I25.10 Atherosclerotic heart disease of native coronary artery without angina pectoris; E11.9 Type 2 diabetes mellitus without complications; E78.5 Hyperlipidemia, unspecified; I11.0 Hypertensive heart disease with heart failure; I50.9 Heart failure, unspecified; Z79.899 Other long term (current) drug therapy
CPT/HCPCS: 36415; 71045; 80053; 81003; 82553; 83690; 83735; 83880; 84484; 85025; 93005; 94760

== ENCOUNTER 2017-09-12 11:34 | Emergency (ER) | payer MEDICARE ==
[2017-09-12] MEDS ORDERED: Lidocaine 1% PF 5 ML VIAL ONE (12:25)
== END 2017-09-12 13:27 | disposition home or self-care (01) ==
LOC: ERS 11:34
DX: L02.411 Cutaneous abscess of right axilla (principal); I11.0 Hypertensive heart disease with heart failure; I50.9 Heart failure, unspecified; E11.9 Type 2 diabetes mellitus without complications; E78.5 Hyperlipidemia, unspecified; I25.10 Atherosclerotic heart disease of native coronary artery without angina pectoris; Z79.899 Other long term (current) drug therapy
CPT/HCPCS: 10060; J2001

== ENCOUNTER 2017-09-27 13:11 | Emergency (ER) | payer MEDICARE ==
[2017-09-27 14:12] LABS: #Lymphocytes 0.7 thou/uL (1.20-3.40); #Monocytes 0.3 thou/uL (0.11-0.59); #Neutrophils 10.7 thou/uL (1.40-6.50); %Basophils 0.2 % (0.0-1.0); %Eosinophils 0.1 % (0.0-10.0); %Lymphocytes 5.7 % (21.0-51.0); %Monocytes 2.6 % (0.0-10.0); %Neutrophils 91.4 % (42.0-75.0); Hemoglobin 12.2 g/dL (14.0-18.0); Mean Corpuscular HGB CONC 34.5 g/dL (32.0-36.0); Mean Corpuscular Hemoglobin 32.8 pg (27.0-31.0); Mean Platelet Volume 7.5 fL (7.4-10.4); Platelet Count 211 thou/uL (130-400); RBC Distribution Width 13.2 % (11.5-14.5); Red Blood Cell (RBC) Count 3.73 mill/uL (4.70-6.10); White Blood Cell (WBC) Count 11.7 thou/uL (4.8-10.8)
--- NOTE | 2017-09-27 14:31 | RAD ---
PORTABLE AP CHEST X-RAY: 09/27/2017 HISTORY: Syncope. COMPARISON: 04/04/2017 FINDINGS: A dual-lead left subclavian cardiac pacemaker device is again noted in place and unchanged in positio n. Stent material again overlies the mediastinum, which is in the expected location of the ascending thoracic aorta. The cardiac silhouette and pulmonary vasculature are within normal limits. The melanie gs are clear. Vascular calcification is seen in the thoracic aorta. Calcified granuloma is present at the left lung base, with calcified pleural based plaques in the left mid lung zone. There has bee n no interval change from the prior exam. IMPRESSION: Stable chest without evidence of an acute cardiopulmonary process. POS: [facility]
[2017-09-27 14:32] LABS: ALT (SGPT) 18 U/L (8-55); AST (SGOT) 16 U/L (5-34); Albumin 3.8 g/dL (3.4-4.8); Alkaline Phosphatase 60 U/L (40-150); Anion Gap 16 mmol/L (10-20); BUN (Urea Nitrogen) 37 mg/dL (8.4-25.7); Bilirubin, Total 0.8 mg/dL (0.2-1.2); Calc. Creatinine Clearance 0 mL/min (70-130); Calcium 9.4 mg/dL (7.8-10.44); Carbon Dioxide 20 mmol/L (23-31); Chloride 103 mmol/L (98-107); Estimated GFR-MDRD 33; Globulin 2.7 g/dL (2.4-3.5); Glucose 278 mg/dL (83-110); Potassium 4.7 mmol/L (3.5-5.1); Protein, Total 6.5 g/dL (5.8-8.1); Sodium 134 mmol/L (136-145)
[2017-09-27 14:40] LABS: CKMB 4.2 ng/mL (0-6.6); Troponin I Less than 0.010 ng/mL (< 0.028)
--- NOTE | 2017-09-29 16:38 | EKG ---
Test Reason : Blood Pressure : / mmHG Vent. Rate : 070 BPM Atrial Rate : 070 BPM P-R Int : 204 ms QRS Dur : 154 ms QT Int : 464 ms P-R-T Axes : 025 -69 076 degrees QTc Int : 501 ms AV dual-paced rhythm Abnormal ECG Confirmed by JOSE WEBER ([id number]), scientific editor TIA MARRERO ([id number]) on 09/29/2017 4:37:28 PM Referred By: Confirmed By:JOSE WEBER
== END 2017-09-27 16:28 | disposition home or self-care (01) ==
LOC: ERS 13:11
DX: T50.901A Poisoning by unspecified drugs, medicaments and biological substances, accidental (unintentional), initial encounter (principal); R42 Dizziness and giddiness; E11.9 Type 2 diabetes mellitus without complications; E78.5 Hyperlipidemia, unspecified; I11.0 Hypertensive heart disease with heart failure; I50.9 Heart failure, unspecified
CPT/HCPCS: 36415; 36416; 71045; 80053; 82553; 84484; 85025; 93005

== ENCOUNTER 2018-07-01 00:31 | Observation (INO) | payer MEDICARE ==
[2018-07-01 01:11] LABS: #Eosinphils 0.2 thou/uL (0.0-0.7); #Lymphocytes 1.7 thou/uL (1.20-3.40); #Monocytes 1.7 thou/uL (0.11-0.59); %Basophils 0.2 % (0.0-1.0); %Eosinophils 1.5 % (0.0-10.0); %Lymphocytes 12.5 % (21.0-51.0); %Monocytes 12.1 % (0.0-10.0); %Neutrophils 73.7 % (42.0-75.0); Hemoglobin 11.9 g/dL (14.0-18.0); Mean Corpuscular HGB CONC 34.4 g/dL (32.0-36.0); Mean Corpuscular Hemoglobin 32.1 pg (27.0-31.0); Mean Corpuscular Volume 93.3 fL (78.0-98.0); Platelet Count 168 thou/uL (130-400); RBC Distribution Width 12.8 % (11.5-14.5); Red Blood Cell (RBC) Count 3.72 mill/uL (4.70-6.10); White Blood Cell (WBC) Count 13.6 thou/uL (4.8-10.8)
[2018-07-01 01:38] LABS: ALT (SGPT) 10 U/L (8-55); AST (SGOT) 13 U/L (5-34); Albumin 3.7 g/dL (3.4-4.8); Alkaline Phosphatase 61 U/L (40-150); Anion Gap 14 mmol/L (10-20); BUN (Urea Nitrogen) 26 mg/dL (8.4-25.7); Bilirubin, Total 0.9 mg/dL (0.2-1.2); Calc. Creatinine Clearance 0 mL/min (70-130); Calcium 9.4 mg/dL (7.8-10.44); Carbon Dioxide 20 mmol/L (23-31); Chloride 106 mmol/L (98-107); Estimated GFR-MDRD 66; Globulin 2.4 g/dL (2.4-3.5); Glucose 221 mg/dL (83-110); Potassium 4.1 mmol/L (3.5-5.1); Protein, Total 6.1 g/dL (5.8-8.1); Sodium 136 mmol/L (136-145)
[2018-07-01] MEDS ORDERED: cefTRIAXone\\ROCEPHIN 1 GM VIAL ONE (03:48)
[2018-07-01] MEDS ORDERED: Azithromycin 500 MG VIAL ONE (03:48)
[2018-07-01 04:12] LABS: Troponin I Less than 0.010 ng/mL (< 0.028)
[2018-07-01] MEDS ORDERED: Ondansetron PF 4 MG/2 ML Vial IVP PRN (05:17)
[2018-07-01] MEDS ORDERED: Acetaminophen 325 MG TAB PO PRN (05:17)
[2018-07-01] MEDS ORDERED: Ondansetron ODT 4 MG TAB SL PRN (05:17)
[2018-07-01 05:18] VITALS: BMI 16.8
--- NOTE | 2018-07-01 08:08 | RAD ---
PORTABLE CHEST 1 VIEW: DATE: 07/01/2018. TIME: 1:07 a.m. HISTORY: Nonproductive cough and chest pain. FINDINGS: Comparison is made with the exam of 09/27/2017. The heart size is normal. The aorta is tortuous. Ch ronic changes are again seen. No lobar consolidation, pneumothoraces, or pleural effusions are ident ified. Stent in the ascending aorta is again noted. No lobar consolidation, pneumothoraces, or pleu ral effusions are seen. A left-sided pacemaker device remains in place. IMPRESSION: No acute process. POS: [facility]
[2018-07-01] MEDS ORDERED: Prevnar 13-Val Conj/PF 0.5 ML SYRINGE IM ONE (09:00)
[2018-07-01] MEDS ORDERED: Dextrose 50% Abboject 50 ML SYRINGE SLOW IVP PRN (09:38)
[2018-07-01] MEDS ORDERED: Dextrose 5% in Water 1,000 ML IV PRN (09:38)
[2018-07-01] MEDS ORDERED: HumaLOG 300 UNITS/3 ML VIAL SC PRN (09:38)
[2018-07-01] MEDS ORDERED: Guaifenesin DM 100-10/5 ML UDCUP PO PRN (10:02)
--- NOTE | 2018-07-01 11:31 | CT ---
PRELIMINARY REPORT/[facility]/EMERGENCY AFTER HOURS PROCEDURE: EXAM: CT Angiography Chest With Contrast EXAM DATE/TIME: 07/01/2018 2:08 AM CLINICAL HISTORY: 83 years old, male; Dyspnea; C/O cough and intermittent right upper chest pain x 3 days - worse with cough and deep breaths. HX COPD from smoke exposure related to working around [employer]. Denies HX of smoki ng tobacco. Denies fever, chills, or leg swelling. Has pacemaker and had a cardiac catheterization. Reports his grain spouter is Dr. Pérez. TECHNIQUE: Imaging protocol: Axial computed tomographic angiography images of the chest with intravenous contras t using CT angiography protocol. 3D rendering: MIP reconstructed images were created and reviewed. COMPARISON: No relevant prior studies available. FINDINGS: Tubes, catheters and devices: Bipolar pacemaker leads within the right atrium and apex of the right v entricle. Pulmonary arteries: No evidence of pulmonary embolism. Aorta: Stent within the ascending thoracic aorta. No aortic aneurysm or dissection. Lungs: Small patches of infiltrate or atelectasis within the inferior right middle lobe. Centrilobula r emphysema. Areas of linear parenchymal scarring or subsegmental collapse / atelectasis in the infer ior lingula. Pleural space: No pleural fluid collection. No pneumothorax. Bilateral calcified pleural plaques. Heart: No RV dysfunction. No pericardial effusion. Spleen: Calcified granulomas within the spleen. Lymph nodes: No pathologically enlarged lymph nodes. Bones/joints: Unremarkable. No acute fracture. Soft tissues: Unremarkable. Other findings: Evidence of old granulomatous disease. IMPRESSION: 1. No evidence of pulmonary embolism. 2. Small patches of infiltrate or atelectasis within the inferior right middle lobe. 3. Centrilobular emphysema. 4. Bilateral calcified pleural plaques. 5. Evidence of old granulomatous disease. Thank you for allowing us to participate in the care of your patient. Dictated and Authenticated by: Omari Obando MD 07/01/2018 3:21 AM Central Time ([place] & [place]) FINAL REPORT CT PULMONARY ANGIOGRAM WITH IV CONTRAST AND 3D POSTPROCESSING: I agree with the preliminary report given by Dr. Omari Obando of [facility]. POS: [facility]
--- NOTE | 2018-07-01 13:29 | CON ---
DATE OF CONSULTATION: HISTORY OF PRESENT ILLNESS: Mo Durham is an 83-year-old pleasant gentleman, who is well known to me. He presents with cough and chest pain for several days duration and marked shortness of breath. CT angio showed no PE, but showed an infiltrate in the right middle lobe, calcified pleural plaques, old granulomas consistent with prior asbestos exposure. This morning, he is still complaining of some right-sided improved chest pain, but sputum that he is coughing up is relatively clear. He said his breathing has improved. The patient on most days has dyspnea on minimal exertion. PAST MEDICAL HISTORY: Pertinent for otherwise, COPD, carotid disease, CHF, diabetes, and lipidemia. PAST SURGICAL HISTORY: Previous surgeries including a pacemaker and aortic valve stents. SOCIAL HISTORY: Nonsmoker. REVIEW OF SYSTEMS: Ten-point negative. HOME MEDICATIONS: Includes; 1. Metformin . 2. Spiriva. 3. Respimat. 4. Thiamine. 5. Altace 5. 6. . 7. Metoprolol-XL 25. 8. Megace for weight gain . 9. Gabapentin. 10. Breo inhaler. Since admission, he has been started on; 1. Ceftriaxone. 2. Zithromax. 3. Neb treatment p.r.n. PHYSICAL EXAMINATION: VITAL SIGNS: Temperature is 98, pulse is 95, respirations 16, saturations are 92% on room air, blood pressure 136/50. CHEST: No wheezing or crackles. CARDIAC: Normal S1 and S2. No gallops. ABDOMEN: No masses. LABORATORY DATA: Lytes are normal. White count normal. Glucose 303. IMPRESSION: 1. Chronic obstructive pulmonary disease exacerbation, bronchitis, possibly right-sided pneumonia. 2. Status post pacemaker. 3. Severe deconditioning. Nonsmoker. Chronic pain. PLAN: I added low-dose prednisone to his present regime. Switch over to oral antibiotics tomorrow. PT and supportive care. We will follow. Job ID: [id number]
--- NOTE | 2018-07-01 13:31 | HP ---
PRIMARY CARE PHYSICIAN: Dr. Gwyn Sosa. CHIEF COMPLAINT: Cough and shortness of breath. HISTORY OF PRESENT ILLNESS: Mr. Durham is a pleasant 83-year-old male with past medical history of COPD; coronary artery disease, status post stent placement x1 ; pacemaker placement; diabetes mellitus type 2; hyperlipidemia; hypertension; chronic diastolic heart failure, who had presented to [facility] for worsening cough and shortness of breath over the last three days, he states that he has also had right-sided chest tightness/pain that has waxed and waned and worse with cough and deep breath. He had denied any fever, chills, or any lower extremity edema, he had denied any left-sided chest pain, palpitations, abdominal pain, nausea, or vomiting. He states that he follows up with Dr. Garduno and he has a followup appointment with Dr. Garduno next week. During his initial workup, a portable chest x-ray showed no acute process. His initial lab work indicated an elevated D-dimer of 2.82. Therefore, a CTA of chest was ordered, however, it was negative for PE at this time, but did show a small patchy infiltrate within the inferior right middle lobe, which was concerning for pneumonia, therefore he was started on IV ceftriaxone and azithromycin in the emergency department. His white count was slightly elevated at 13.6. Otherwise, his lab work was unremarkable. It was determined the patient will be admitted under observation, will be placed on IV antibiotics along with DuoNebs and other symptomatic treatment for his pneumonia. REVIEW OF SYSTEMS: All other systems reviewed and found to be negative unless mentioned in the HPI. PAST MEDICAL HISTORY: Hypertension; hyperlipidemia; diabetes mellitus type 2; chronic diastolic heart failure with a preserved EF; coronary artery disease, status post stents; pacemaker placement; and COPD. PAST SURGICAL HISTORY: Aortic valve replacement and cardiac stents x1. PSYCHIATRIC HISTORY: None. SOCIAL HISTORY: Denies any alcohol, tobacco, or illicit drug use. KNOWN ALLERGIES: No known drug allergies. CURRENT HOME MEDICATIONS: 1. Aspirin 81 mg p.o. daily. 2. Metformin 500 mg p.o. at bedtime. 3. Biotin 5000 mcg p.o. daily. 4. Atorvastatin 20 mg p.o. daily. 5. Breo one inhalation b.i.d. 6. Gabapentin 300 mg p.o. at bedtime. 7. Isosorbide mononitrate 30 mg p.o. daily. 8. Megace 40 mg p.o. daily. 9. Metoprolol 25 mg p.o. daily. 10. Mirtazapine 15 mg p.o. at bedtime. 11. Altace 5 mg p.o. at bedtime. 12. Thiamine 250 mg p.o. daily. 13. Stiolto Respimat inhaler two puffs inhalation daily. 14. CoQ10 100 mg p.o. daily. PHYSICAL EXAMINATION: VITAL SIGNS: BP 132/63, pulse 94, respirations 16, temperature 98.4 degrees Fahrenheit, O2 saturations 97% on room air. GENERAL: The patient is awake, alert, and oriented x3. He is currently lying comfortably in bed and in no acute distress. His is at bedside. HEENT: Atraumatic, normocephalic. Pupils are round and reactive to light. Extraocular muscles intact. Moist mucous membranes noted. CARDIOVASCULAR: Positive S1 and S2. Regular rate and rhythm. No murmur auscultated. RESPIRATORY: Coarse breath sounds heard bilaterally, worse on the right with no accessory muscle use. Currently on room air. MUSCULOSKELETAL: Strength 5+ bilaterally upper and lower extremities. Moves all extremities equal. Pedal and radial pulses palpable, 2+ bilaterally. No edema noted. NEUROLOGIC: Cranial nerves 2 through 12 grossly intact. No focal deficits noted. ABDOMEN: Soft, nontender. Bowel sounds present. SKIN: Warm, dry, and intact. No rashes. No ulceration noted. PSYCHIATRIC: Good mood and affect. LABORATORY DATA: WBC 13.6, RBC 3.72, hemoglobin 11.9, platelet 168. D-dimer 2.82. Sodium 136, potassium 4.1, anion gap 14, BUN 26, creatinine 1.07, estimated GFR 66, glucose 221. Troponin less than 0.010 x2. DIAGNOSTIC IMAGING: Portable chest x-ray shows no acute process. CTA of chest shows no evidence of pulmonary embolism, but does show small patches of infiltrate within the inferior right middle lobe. ASSESSMENT AND PLAN: 1. Community-acquired pneumonia, right middle lobe. The patient will be continued on IV ceftriaxone and azithromycin along with symptomatic bronchodilation treatments. He will also be started on guaifenesin DM as needed for cough. 2. Acute exacerbation of chronic obstructive pulmonary disease. The patient will be placed on home regimen along with DuoNeb nebulizer treatments as needed for any wheezing or shortness of breath. I will personally discuss case with Dr. Garduno. 3. History of hypertension, currently stable. Continue on home regimen. 4. Hyperlipidemia. Continue home statin. 5. History of diabetes mellitus type 2. We will hold home metformin and place the patient on insulin sliding scale with frequent Accu-Cheks. 6. Deep venous thrombosis and gastrointestinal prophylaxis. 7. Code status, full code. 8. Surrogate decision maker is the patient's spouse, Blaire Durham. DISPOSITION: The patient will be continued on IV antibiotics for this time. He will also be treated with symptomatic treatment and monitored over the next 24 hours. He will likely be discharged home on oral antibiotics in the next 24 to 48 hours. Job ID: [id number] [email or web address]
[2018-07-01] MEDS: Benzonatate 100 MG CAP PO SCH ×2 (15:15→20:28)
[2018-07-01] MEDS ORDERED: ISOVUE-370 76%-LOCM 1 ML ONE (16:09)
[2018-07-01] MEDS: HumaLOG 300 UNITS/3 ML VIAL SC PRN (17:38)
[2018-07-01] MEDS: Mometasone/Formoterol 120 PUFF INHALER INH SCH (18:44)
[2018-07-01] MEDS: Famotidine 20 MG TAB PO SCH (20:30)
[2018-07-01] MEDS ORDERED: Gabapentin 300 MG CAP PO SCH ×2 (21:00)
[2018-07-01] MEDS ORDERED: Mirtazapine 15 MG TAB PO SCH (21:00)
[2018-07-01] MEDS ORDERED: Atorvastatin Calcium 20 MG TAB PO SCH ×2 (21:00)
[2018-07-01] MEDS ORDERED: Ramipril 5 MG CAP PO SCH (21:00)
[2018-07-01] MEDS ORDERED: Non-Formulary Item 1 EACH (Fluticasone/Vilanterol [Breo Ellipta] 1 INH) IH SCH (21:00)
[2018-07-02] MEDS ORDERED: cefTRIAXone\\ROCEPHIN 2 GM in Sodium Chloride 0.9% 100 ML IVPB SCH (05:00)
[2018-07-02 05:53] LABS: #Eosinphils 0.6 thou/uL (0.0-0.7); #Lymphocytes 1.1 thou/uL (1.20-3.40); #Monocytes 1.4 thou/uL (0.11-0.59); #Neutrophils 7.5 thou/uL (1.40-6.50); %Basophils 0.3 % (0.0-1.0); %Eosinophils 5.5 % (0.0-10.0); %Lymphocytes 10.3 % (21.0-51.0); %Monocytes 13.3 % (0.0-10.0); %Neutrophils 70.5 % (42.0-75.0); Hemoglobin 11.8 g/dL (14.0-18.0); Mean Corpuscular Hemoglobin 31.4 pg (27.0-31.0); Mean Platelet Volume 8.4 fL (7.4-10.4); Platelet Count 193 thou/uL (130-400); RBC Distribution Width 12.7 % (11.5-14.5); Red Blood Cell (RBC) Count 3.75 mill/uL (4.70-6.10); White Blood Cell (WBC) Count 10.6 thou/uL (4.8-10.8)
[2018-07-02] MEDS ORDERED: Azithromycin 500 MG in Sodium Chloride 0.9% 250 ML 250 ML IVPB SCH (06:00)
[2018-07-02 06:15] LABS: Anion Gap 14 mmol/L (10-20); BUN (Urea Nitrogen) 16 mg/dL (8.4-25.7); Calc. Creatinine Clearance 49 mL/min (70-130); Calcium 9.5 mg/dL (7.8-10.44); Carbon Dioxide 20 mmol/L (23-31); Chloride 105 mmol/L (98-107); Estimated GFR-MDRD 81; Glucose 175 mg/dL (83-110); Sodium 135 mmol/L (136-145)
[2018-07-02] MEDS: Mometasone/Formoterol 120 PUFF INHALER INH SCH (06:45)
[2018-07-02] MEDS ORDERED: predniSONE 20 MG TAB PO SCH (08:00)
[2018-07-02] MEDS ORDERED: UBIDECARENONE PO SCH (09:00)
[2018-07-02] MEDS ORDERED: THIAMINE HCL PO SCH (09:00)
[2018-07-02] MEDS ORDERED: Aspirin 81 mg Enteric Coated Tablet PO SCH ×2 (09:00)
[2018-07-02] MEDS ORDERED: Megestrol Acetate 40 MG TAB PO SCH (09:00)
[2018-07-02] MEDS ORDERED: STIOLTO RESPIMAT INHAL INH SCH (09:00)
[2018-07-02] MEDS ORDERED: Thiamine 100 MG TAB PO SCH (09:00)
[2018-07-02] MEDS ORDERED: Enoxaparin Sodium 40 MG/0.4 ML SYRINGE SC SCH (09:00)
[2018-07-02] MEDS ORDERED: Ubidecarenone 50 MG CAP PO SCH (09:00)
--- NOTE | 2018-07-02 09:18 | PRG ---
DATE OF SERVICE: 07/02/2018 SUBJECTIVE: Mo Durham, this morning, is still having some right-sided pleuritic chest pain. Sputum is clear. OBJECTIVE: VITAL SIGNS: Saturations are 100% on room air, temperature 97, pulse 85, respiratory rate 18, and blood pressure is 120/60. CHEST: No wheezing. No crackles. No rubs. CARDIAC: Normal S1 and S2. No gallops. ABDOMEN: No masses. IMPRESSION: 1. Right-sided pleuritic chest pain. 2. Pneumonia. 3. Chronic obstructive pulmonary disease. 4. Congestive heart failure. 5. Severe deconditioning. 6. Weight loss. PLAN: Switch over to oral antibiotics. PT, supportive care. Job ID: [id number]
[2018-07-02] MEDS: Famotidine 20 MG TAB PO SCH (09:36)
[2018-07-02] MEDS: Benzonatate 100 MG CAP PO SCH (09:36)
[2018-07-02 11:14] VITALS: TEMP 97.9
[2018-07-02] MEDS: HumaLOG 300 UNITS/3 ML VIAL SC PRN (12:34)
[2018-07-03 07:48] VITALS: BP 140/65
== END 2018-07-02 14:25 | disposition home or self-care (01) ==
LOC: ERS 00:31 → 2SW 05:06
PROVIDERS: ADMIT Hospitalist; ATTEND Hospitalist
DX: J18.1 Lobar pneumonia, unspecified organism (principal); J44.1 Chronic obstructive pulmonary disease with (acute) exacerbation; I25.10 Atherosclerotic heart disease of native coronary artery without angina pectoris; E11.9 Type 2 diabetes mellitus without complications; I11.0 Hypertensive heart disease with heart failure; I50.32 Chronic diastolic (congestive) heart failure; R63.4 Abnormal weight loss; Z68.1 Body mass index [BMI] 19.9 or less, adult; Z79.82 Long term (current) use of aspirin; Z79.84 Long term (current) use of oral hypoglycemic drugs; Z79.899 Other long term (current) drug therapy; Z95.1 Presence of aortocoronary bypass graft; Z95.2 Presence of prosthetic heart valve; Z95.5 Presence of coronary angioplasty implant and graft
CPT/HCPCS: 71045; 71275; 80048; 80053; 82962 ×2; 84484 ×2; 85025 ×2; 85379; 93005; 94640 ×2; 96365; 96366; 96367; 97139 ×3; 99285; G0378 ×2; 36415; 36416; J0456; J0696; J1650; J3490; J7050; J7512; Q9966; S0179

== ENCOUNTER 2018-07-14 14:54 | Inpatient (IN) | payer MEDICARE ==
--- NOTE | 2018-07-14 16:05 | CT ---
CT BRAIN NONCONTRAST: DATE: 07/14/2018 HISTORY: Head trauma due to fall due to dizziness and syncope FINDINGS: There is no evidence of acute intra-axial or extra-axial hemorrhage. There is no midline shift or any other mass effect. There is no extra-axial fluid collection. There is no evidence of obstructive hydrocephalus. Calvarium is intact. There is diffuse brain parenchymal volume loss. There are low att enuation areas in the white matter. These are nonspecific, but in a patient of this age, they are probably chronic ischemic white matter changes due to microvascular atherosclerosis. IMPRESSION: 1) No acute intracranial findings. 2) involutional changes and chronic ischemic white matter changes.
--- NOTE | 2018-07-14 16:06 | RAD ---
RADIOGRAPH CHEST 1 VIEW: DATE: 07/14/2018 HISTORY: 83-year-old male with dyspnea FINDINGS: There are no airspace densities, pulmonary edema, pneumothorax, or cardiomegaly. The lateral costophr enic angles are sharp. Hyperinflation consistent with COPD. Left subclavian dual lead pacemaker. Large vascular stent overlying the mediastinum. IMPRESSION: 1. No acute cardiopulmonary findings. 2. Emphysema
[2018-07-14 16:15] LABS: #Eosinphils 0.1 thou/uL (0.0-0.7); #Lymphocytes 1.6 thou/uL (1.20-3.40); #Monocytes 0.5 thou/uL (0.11-0.59); #Neutrophils 14.6 thou/uL (1.40-6.50); %Basophils 0.2 % (0.0-1.0); %Eosinophils 0.8 % (0.0-10.0); %Lymphocytes 9.5 % (21.0-51.0); %Monocytes 2.9 % (0.0-10.0); %Neutrophils 86.6 % (42.0-75.0); Hemoglobin 11.9 g/dL (14.0-18.0); Mean Corpuscular HGB CONC 32.6 g/dL (32.0-36.0); Mean Corpuscular Hemoglobin 31.2 pg (27.0-31.0); Mean Corpuscular Volume 95.5 fL (78.0-98.0); Mean Platelet Volume 8.7 fL (7.4-10.4); Platelet Count 170 thou/uL (130-400); RBC Distribution Width 13.5 % (11.5-14.5); Red Blood Cell (RBC) Count 3.81 mill/uL (4.70-6.10); White Blood Cell (WBC) Count 16.9 thou/uL (4.8-10.8)
[2018-07-14 16:21] LABS: INR-International Normal Ratio 1.3; PTT 26.5 SEC (22.9-36.1); Prothrombin Time 15.8 SEC (12.0-14.7)
[2018-07-14 16:34] LABS: ALT (SGPT) 12 U/L (8-55); AST (SGOT) 18 U/L (5-34); Albumin 3.5 g/dL (3.4-4.8); Alkaline Phosphatase 54 U/L (40-150); Anion Gap 20 mmol/L (10-20); BUN (Urea Nitrogen) 67 mg/dL (8.4-25.7); Bilirubin, Total 0.6 mg/dL (0.2-1.2); CK (CPK) 95 U/L (30-200); Calc. Creatinine Clearance 0 mL/min (70-130); Calcium 8.4 mg/dL (7.8-10.44); Carbon Dioxide 14 mmol/L (23-31); Chloride 104 mmol/L (98-107); Estimated GFR-MDRD 34; Globulin 2.2 g/dL (2.4-3.5); Glucose 205 mg/dL (83-110); Potassium 5.6 mmol/L (3.5-5.1); Protein, Total 5.7 g/dL (5.8-8.1); Sodium 132 mmol/L (136-145)
[2018-07-14 17:33] LABS: Bilirubin Negative (Negative); Blood, Urine Negative (Negative); Clarity CLOUDY (Clear); Glucose, Urine (Dipstick) 250 mg/dL (Negative); Leukocyte Small (Negative); Nitrite Negative (Negative); Protein, Urine (Dipstick) Negative (Neg-Trace); Specific Gravity, Urine 1.022 (1.002-1.036); Urobilinogen 0.2 mg/dL (0.2-1.0)
[2018-07-14 17:35] LABS: Pathc Cast-AUWi Flag 7.88 (0-2.49); Yeast-AUWi Flag 316.6 (0-25.0)
[2018-07-14 17:44] LABS: Bacteria/HPF Rare-Few HPF (None Seen); Hyaline Casts/LPF 4-6 HYALINE CAST LPF (0-3 Hyaline); Manual Microscopic Reviewed? No Path Casts Seen; RBC/HPF None Seen HPF (0-3); WBC/HPF 0-3 HPF (0-3); Yeast-All Forms 1+ HPF (None Seen)
[2018-07-14] MEDS ORDERED: Sodium Chloride 0.9% 1,000 ML IV SCH ×2 (18:35→19:15)
[2018-07-14] MEDS ORDERED: Ondansetron ODT 4 MG TAB SL PRN (18:35)
[2018-07-14] MEDS ORDERED: Acetaminophen 325 MG TAB PO PRN ×2 (18:35→19:05)
[2018-07-14] MEDS ORDERED: Ondansetron PF 4 MG/2 ML Vial IVP PRN (18:35)
[2018-07-14] MEDS ORDERED: Ondansetron ODT 4 MG TAB PO PRN (19:05)
[2018-07-14] MEDS ORDERED: HumaLOG 300 UNITS/3 ML VIAL SC PRN (19:07)
[2018-07-14] MEDS ORDERED: Dextrose 50% Abboject 50 ML SYRINGE SLOW IVP PRN (19:07)
[2018-07-14] MEDS ORDERED: Dextrose 5% in Water 1,000 ML IV PRN (19:07)
[2018-07-14] MEDS ORDERED: Sodium Bicarb 50 MEQ/50 ML VIAL IVP SCH (19:30)
[2018-07-14] MEDS ORDERED: hydrALAZINE 20 MG/ML VIAL SLOW IVP PRN (20:07)
[2018-07-14 20:10] LABS: Anion Gap 17 mmol/L (10-20); BUN (Urea Nitrogen) 61 mg/dL (8.4-25.7); Calc. Creatinine Clearance 28 mL/min (70-130); Calcium 8.6 mg/dL (7.8-10.44); Carbon Dioxide 16 mmol/L (23-31); Chloride 106 mmol/L (98-107); Estimated GFR-MDRD 42; Glucose 158 mg/dL (83-110); Sodium 134 mmol/L (136-145)
--- NOTE | 2018-07-14 20:13 | HP ---
PRIMARY CARE: Dr. Sosa. CHIEF COMPLAINT: Fall. HISTORY OF PRESENT ILLNESS: This is an 83-year-old male with history of hypertension, dyslipidemia, type 2 diabetes, chronic diastolic heart failure with preserved ejection fraction, coronary artery disease with history of stent placement, who presents to the emergency room by EMS after a fall. The patient reports that he was sitting on the sofa and heard his requesting help in another room. He got up and noticed that his head was spinning. He fell and then was unable to get up. At some point, he was able to crawl and get over to where his was, but was unable to provide assistance for her. He was eventually found by his daughter and son-in-law, who were coming over to check on him. The patient denies any prior history of feeling dizzy, especially with standing up. States that this morning he was in his usual state of health and took his medications as normal. He denies any fevers, chills, nausea, vomiting, chest pain, headache, or vision changes. He denies any precipitants or relieving factors. His daughter has noticed a 20-pound weight loss over the past few months, and the patient does have a history of poor appetite and is on Megace for this. In the emergency room, the patient was found to have an acute kidney injury as well as being hyperkalemic. He was started on 1 L of normal saline and hospitalist called for admission. ALLERGIES: NO KNOWN DRUG ALLERGIES. CURRENT MEDICATIONS: Reconciled with the list provided by his daughter. 1. Altace 5 mg daily. 2. Imdur 30 mg daily. 3. Metoprolol unknown type 25 mg daily. 4. Lipitor 20 mg at bedtime. 5. Mirtazapine 15 mg at bedtime. 6. Breo Ellipta one puff b.i.d. 7. Gabapentin 300 mg at bedtime. 8. Megestrol 40 mg daily. 9. Glucophage 500 mg b.i.d. 10. Aspirin low-dose 81 mg two tablets daily. 11. Stiolto 2 puffs daily. 12. Biotin 5000 mcg daily. 13. Vitamin B1 of 250 mg daily. 14. Red krill 300 mg daily. 15. Coenzyme Q10 of 100 mg daily. 16. Vitamin D 1000 units daily. PAST MEDICAL HISTORY: 1. Pneumonia, hospitalized here in June of 2018. 2. Hypertension. 3. Dyslipidemia. 4. Diabetes mellitus, type 2. 5. Chronic diastolic heart failure with preserved EF. 6. Coronary artery disease, status post stents. 7. COPD. 8. Cachexia. PAST SURGICAL HISTORY: 1. Aortic valve replacement. 2. Cardiac stents. 3. Pacemaker. SOCIAL HISTORY: The patient lives with his , who is the one that does all of his medications. He denies any alcohol or tobacco. His surrogate decision maker is Ezio, his daughter, and his medical power of erisa attorney is his other daughter, Lizbeth. He is a full code. FAMILY HISTORY: Significant for diabetes. REVIEW OF SYSTEMS: Positive for weight loss 20 pounds over the past few months as noted by his daughter, poor appetite. Negative for all conditions listed above. All remaining review of systems are reviewed and negative. PHYSICAL EXAMINATION: VITAL SIGNS: In the emergency room, his blood pressure 110/68, pulse 78, respirations 16, sats 98% on room air, and temperature 98.0. GENERAL: Awake, alert, responsive, in no apparent distress. Able to speak in full sentences. HEENT: Pupils are equal and round. Oral mucosa is pink and moist. NECK: Supple, nontender. LYMPHATICS: No palpable cervical or supraclavicular lymphadenopathy. LUNGS: Clear to auscultation bilaterally. No audible wheezing, rhonchi, or rales. HEART: Normal S1 and S2. Regular rate and rhythm. No audible murmurs. ABDOMEN: Soft with present bowel sounds. EXTREMITIES: Thin. No edema, clubbing, or cyanosis. SKIN: Has ecchymosis and skin tears on both elbows. NEUROLOGIC: No focal deficits. PSYCH: The patient appears euthymic. VASCULAR: 2+ radial pulses. RETANA FINDINGS AND TEST RESULTS: CBC; 16.9, 11.9, 36.4, and 170 with 86% neutrophils. INR 1.3. Renal panel; 132, 5.6, 104, 14, 67, 1.89, 205. LFTs are normal with the exception of total protein 5.7, albumin 3.5. Urinalysis shows present glucose, small leukocyte esterase, 4 to 6 squamous cells, 4 to 6 hyaline casts, and 1+ yeast. EKG, personally reviewed, shows a paced rhythm. CT scan of the brain, no acute change, chronic white matter ischemic changes. Chest x-ray, personally reviewed, no acute changes, only emphysema. IMPRESSION: 1. Syncopal event in a patient with multiple risk factors to include coronary artery disease, diabetes, and hypertension. The patient also with a pacemaker. 2. Acute kidney injury in the context of LISA inhibitor use, unclear precipitant. 3. Hyperkalemia and metabolic acidosis, likely secondary to above. 4. Leukocytosis, unknown etiology with left shift. The patient is not manifesting any signs or symptoms of infection. 5. Coronary artery disease. 6. Dyslipidemia. 7. Cachexia and poor appetite. 8. Chronic obstructive pulmonary disease, appears compensated. 9. History of diastolic heart failure, appears compensated. 10. Diabetes mellitus, type 2. 11. Anemia, chronic. PLAN: 1. Admission to the hospital. 2. Monitoring on telemetry. We will obtain cardiology consultation given his coronary history and his pacemaker. 3. IV fluid hydration and monitoring for signs of fluid overload, renal ultrasound, Nephrology consult, and repeating his BMP now due to hyperkalemia. 4. Check TSH in the morning. 5. Continuing selective home medications, holding his antihypertensives as I want to monitor his blood pressures. 6. We will substitute Breo for inhaled Pulmicort and Brovana, and his daughter will bring in his home inhalers. 7. Insulin sliding scale. Holding his home Glucophage due to his renal function. 8. We will continue his low-dose aspirin. 9. Monitor his white blood cell count. 10. Nursing staff to address his skin tears secondary to the fall. 11. DVT prophylaxis with pneumatic compression devices. We will consult PT/OT to evaluate patient's strength and balance. 12. GI prophylaxis not indicated. 13. Code status is full. His surrogate decision maker is as noted above. 14. The patient is at high risk given age comorbidities and current presentation. I reviewed the plan of care with the patient and his daughter. No questions or further needs at the end of evaluation. Job ID: [id number] [facility]
[2018-07-14] MEDS: Sodium Bicarbonate 150 MEQ in Dextrose 5% in Water 1,000 ML IV SCH (20:14)
[2018-07-14 20:16] LABS: Troponin I 0.025 ng/mL (< 0.028)
[2018-07-14] MEDS: Gabapentin 300 MG CAP PO SCH (20:35)
[2018-07-14] MEDS: Atorvastatin Calcium 20 MG TAB PO SCH (20:35)
--- NOTE | 2018-07-14 21:06 | PDOC.EVN ---
Event Note - Event Note Event Note: Update to H&P - given the JESUS and hyperkalemia - consult placed to Nephrology. Will stat order repeat bmp, order 1 amp bicarb, and start on bicarb gtt.
--- NOTE | 2018-07-14 21:32 | CON ---
DATE OF CONSULTATION: REASON FOR CONSULTATION: Elevated creatinine, hyperkalemia. HISTORY OF PRESENT ILLNESS: This is an 83-year-old gentleman, presented to the hospital today and was noted to have a potassium of 5.6. I was consulted. The patient was acidotic. The patient had a syncopal episode. Denies any nausea, vomiting, or chest pain. Denies any NSAID use. The patient has a history of comorbidities and poor p.o. intake. PAST MEDICAL HISTORY: Significant for diabetes mellitus, hypertension, pneumonia, congestive heart failure, cachexia, aortic valve replacement, cardiac stent, pacemaker. SOCIAL HISTORY: No alcohol or drug use. FAMILY HISTORY: Negative for ESRD. ALLERGIES: REVIEWED. HOME MEDICATION: List reviewed. REVIEW OF SYSTEMS: 15-point review of system was performed and negative except for positives noted above. GENERAL: HEAD: NECK: No swelling or lumps. NOSE: No epistaxis or discharge. EYES: No diplopia or pain. RESPIRATORY: CARDIOVASCULAR: GASTROINTESTINAL: /MANGA ARTIST: MUSCULOSKELETAL: No joint pain. NEUROPSYCHIATIC SYSTEMS: No suicidal ideation. No ideation. SKIN: Denies any rash or ulcer. CONSTITUTIONAL: No fever or chills. PHYSICAL EXAMINATION: GENERAL: The patient is awake and alert. VITAL SIGNS: Pulse 78, breathing 16, blood pressure 160/79. GENERAL APPEARANCE AND MENTAL STATUS: Fair. HEAD/NECK: Normocephalic. Atraumatic. EYES: EOMI. No deformity. EARS: Clear. No ulcers. NOSE: Intact. No lesions. MOUTH: Clear. No discharge. THROAT: Clear. No exudate. LUNGS: Clear. No crackles. CARDIAC: S1, S2. No rub. ABDOMEN: Benign. Bowel sounds positive. GENITALIA/RECTUM: Silverio absent. BACK/EXTREMITIES: Edema 0+. NEUROLOGICAL: Alert and motor intact. SKIN: LYMPHATICS: LABORATORY DATA: Labs are reviewed. ASSESSMENT AND RECOMMENDATIONS: 1. Acute kidney injury with chronic kidney disease, most likely due to decreased effective arterial blood volume and acute tubular necrosis. Continue hydration. 2. Hypertension, stable. 3. Anemia, stable. 4. Metabolic acidosis. Start the patient on a bicarb drip. 5. Medication based on GFR, wide metformin and order renal imaging. No indication for dialysis at this time. Job ID: [id number]
[2018-07-14 23:07] LABS: Troponin I Less than 0.010 ng/mL (< 0.028)
[2018-07-15 05:43] LABS: #Basophils 0.1 thou/uL (0.0-0.2); #Eosinphils 0.4 thou/uL (0.0-0.7); #Lymphocytes 2.1 thou/uL (1.20-3.40); #Monocytes 0.9 thou/uL (0.11-0.59); #Neutrophils 7.4 thou/uL (1.40-6.50); %Basophils 0.5 % (0.0-1.0); %Eosinophils 3.6 % (0.0-10.0); %Lymphocytes 19.7 % (21.0-51.0); %Monocytes 7.9 % (0.0-10.0); %Neutrophils 68.4 % (42.0-75.0); Hemoglobin 12.2 g/dL (14.0-18.0); Mean Corpuscular HGB CONC 34.1 g/dL (32.0-36.0); Mean Corpuscular Hemoglobin 31.7 pg (27.0-31.0); Mean Corpuscular Volume 92.9 fL (78.0-98.0); Mean Platelet Volume 8.6 fL (7.4-10.4); Platelet Count 170 thou/uL (130-400); RBC Distribution Width 13.3 % (11.5-14.5); Red Blood Cell (RBC) Count 3.85 mill/uL (4.70-6.10); White Blood Cell (WBC) Count 10.8 thou/uL (4.8-10.8)
[2018-07-15 06:06] LABS: Anion Gap 12 mmol/L (10-20); BUN (Urea Nitrogen) 39 mg/dL (8.4-25.7); Calc. Creatinine Clearance 38 mL/min (70-130); Calcium 8.5 mg/dL (7.8-10.44); Carbon Dioxide 24 mmol/L (23-31); Chloride 102 mmol/L (98-107); Estimated GFR-MDRD 61; Glucose 172 mg/dL (83-110); Potassium 3.9 mmol/L (3.5-5.1); Sodium 134 mmol/L (136-145)
[2018-07-15] MEDS: Sodium Bicarbonate 150 MEQ in Dextrose 5% in Water 1,000 ML IV SCH (06:23)
[2018-07-15] MEDS: Arformoterol 15 MCG/2 ML NEB NEB SCH ×2 (07:31→19:27)
[2018-07-15] MEDS: Budesonide 0.5 MG/2 ML NEB INH SCH ×2 (07:31→19:29)
[2018-07-15] MEDS: Megestrol Acetate 40 MG TAB PO SCH (08:06)
[2018-07-15] MEDS: Aspirin 81 mg Enteric Coated Tablet PO SCH (08:06)
--- NOTE | 2018-07-15 08:32 | ULT ---
US Renal Bilateral STANDARD History: Acute kidney injury Comparison: None. Findings: Real-time grayscale and color evaluation of the kidneys and urinary bladder was performed. Right kidney measures 9.1 x 4.6 x 4.5 cm the left kidney measures 9.3 x 5.3 x 5 cm. No renal mass, hy dronephrosis, or abnormal calcifications. Prevoid urinary bladder volume is 242 mL. IMPRESSION: Normal examination of the kidneys. No evidence for obstructive uropathy.
--- NOTE | 2018-07-15 09:37 | PDOC.PN ---
- Subjective Encounter Start Date: 07/15/18 (f/u JESUS) Encounter Start Time: 09:35 Subjective: Pt without any overnight events. Multiple bm's after the -: kaexalyte. Denies any sob/cp/n/v/abd pain - Objective Resuscitation Status - Order Detail: 07/14/18 19:05 Resuscitation Status Routine Resuscitation Status: FULL: Full Resuscitation Vital Signs & Weight: Vital Signs (12 hours) Temp Pulse Resp BP Pulse Ox 07/15/18 08:02 97.7 F 72 18 178/81 H 98 07/15/18 07:31 70 16 95 07/15/18 04:00 98.6 F 74 18 170/97 H 97 07/14/18 23:58 73 128/69 Weight Weight 117 lb 4.575 oz I&O: 07/14/18 07/15/18 07/16/18 06:59 06:59 06:59 Intake Total 1038 Output Total 100 Balance 938 Result Diagrams: 07/15/18 05:28 07/15/18 05:28 Additional Labs: Accuchecks 07/15/18 07/14/18 05:24 21:00 POC Glucose 185 H 191 H EKG Reviewed by me: Yes (tele - AV paced 70-80's) Phys Exam - Physical Examination Constitutional: NAD cachectic Respiratory: no wheezing, no rhonchi, clear to auscultation bilateral faint bibasilar rales Cardiovascular: RRR, no significant murmur Gastrointestinal: soft, non-tender, positive bowel sounds Musculoskeletal: no edema Psychiatric: normal affect Deviation from normal: ecchymosis along elbows with skin tears - present on admit Dx/Plan (1) JESUS (acute kidney injury) Code(s): N17.9 - ACUTE KIDNEY FAILURE, UNSPECIFIED Status: Acute (2) Hyperkalemia Code(s): E87.5 - HYPERKALEMIA Status: Acute (3) Metabolic acidosis Code(s): E87.2 - ACIDOSIS Status: Acute (4) Syncope Code(s): R55 - SYNCOPE AND COLLAPSE Status: Acute (5) Leukocytosis Code(s): D72.829 - ELEVATED WHITE BLOOD CELL COUNT, UNSPECIFIED Status: Acute (6) Coronary artery disease Code(s): I25.10 - ATHSCL HEART DISEASE OF [place] CORONARY ARTERY W/O ANG PCTRS Status: Acute - Plan * Appreciate Nephro consult - JESUS/hyperkalemia/met acidosis - resolved, will d/ c gtt. * Syncope - on tele with paced rhythm, Cards consult * DM - continue ISS * Hypertension - continue metoprolol and isosorbide, hold benjy-i due to JESUS * continue other appropriate home meds * 1 daughter to bring in home inhalers - will use * duonebs prn * * dvt prophy - scd's * gi prophy - not indicated * code status full * * reviewed plan of care with patient and 1 of his daughters, no questions or further needs at end of eval * pt remains at high risk in current conditions
[2018-07-15] MEDS: HumaLOG 300 UNITS/3 ML VIAL SC PRN (11:28)
--- NOTE | 2018-07-15 14:19 | CON ---
DATE OF CONSULTATION: HISTORY OF PRESENT ILLNESS: The patient is an 83-year-old gentleman who presents for evaluation after he had a fall. The patient has a long history of coronary artery disease. He has previously undergone PTCA and stent placement. He also had a TAVR done in [place] a few years ago. The patient also had placement of electronic ventricular pacemaker. The patient unfortunately was in his usual state of health when his called he got up quickly and suddenly fell. He did not lose consciousness. The patient denied having any chest discomfort. PAST MEDICAL HISTORY: 1. Coronary artery disease. 2. History of aortic stenosis. 3. Hypertension. 4. Diabetes mellitus. 5. COPD. PAST SURGICAL HISTORY: None. SOCIAL HISTORY: Nonsmoker. MEDICATIONS ON ADMISSION: See nursing list. REVIEW OF SYSTEMS: A 10-point system noticeable for continued weight loss. PHYSICAL EXAMINATION: GENERAL: Very thin gentleman, in no acute distress. VITAL SIGNS: Blood pressure 135/98. NECK: No jugular venous distention. LUNGS: Clear to auscultation. HEART: Regular rate and rhythm. Normal S1 and S2 with a 1/6 systolic murmur. ABDOMEN: Soft and nontender. EXTREMITIES: No edema. VASCULAR: Radial pulses were 2+. LABORATORY RESULTS: Sodium 134, potassium 3.9, chloride 102, bicarbonate 24, BUN 39, and creatinine 1.1. Troponin less than 0.01. White blood cell count 10.8, hemoglobin 12.2, hematocrit 37.7, and platelets are 170. His EKG revealed him to have a dual-chamber electronic pacemaker. IMPRESSION: 1. Probable orthostatic hypotension. 2. Cachexia. 3. History of transcatheter aortic valve replacement. 4. History of percutaneous transluminal coronary angioplasty and stent placement. 5. Diabetes mellitus. 6. History of pacemaker placement. PLAN: The patient presented with dehydration. I would recommend he discontinue his ramipril. We will check the patient's orthostatics. We will follow this patient with you through his hospitalization. Job ID: [id number] [facility]
[2018-07-15 15:14] VITALS: BMI 16.3
[2018-07-15] MEDS: Atorvastatin Calcium 20 MG TAB PO SCH (20:12)
[2018-07-15] MEDS: Gabapentin 300 MG CAP PO SCH (20:12)
[2018-07-15] MEDS: Mirtazapine 15 MG TAB PO SCH (20:13)
--- NOTE | 2018-07-15 21:04 | PRG ---
DATE OF SERVICE: 07/15/2018 OBJECTIVE: GENERAL: This is a well-built male, in no apparent distress. VITAL SIGNS: Temperature 97.9, pulse 72, respiratory rate 18, blood pressure LABORATORY DATA: Potassium is 3.9, BUN is 39, creatinine is 1.1. ASSESSMENT AND PLAN: 1. Acute kidney injury on chronic kidney disease, stable. 2. Hypertension. 3. Anemia. 4. Metabolic acidosis, stable. It seems like renal function is stable. Job ID: [id number]
[2018-07-16 05:28] LABS: #Eosinphils 0.4 thou/uL (0.0-0.7); #Lymphocytes 1.8 thou/uL (1.20-3.40); #Monocytes 0.7 thou/uL (0.11-0.59); #Neutrophils 5.5 thou/uL (1.40-6.50); %Basophils 0.5 % (0.0-1.0); %Eosinophils 4.5 % (0.0-10.0); %Lymphocytes 21.9 % (21.0-51.0); %Monocytes 7.8 % (0.0-10.0); %Neutrophils 65.3 % (42.0-75.0); Hemoglobin 12.8 g/dL (14.0-18.0); Mean Corpuscular Hemoglobin 31.7 pg (27.0-31.0); Mean Corpuscular Volume 93.1 fL (78.0-98.0); Platelet Count 180 thou/uL (130-400); RBC Distribution Width 13.1 % (11.5-14.5); Red Blood Cell (RBC) Count 4.04 mill/uL (4.70-6.10); White Blood Cell (WBC) Count 8.4 thou/uL (4.8-10.8)
[2018-07-16 05:51] LABS: Anion Gap 13 mmol/L (10-20); BUN (Urea Nitrogen) 19 mg/dL (8.4-25.7); Calc. Creatinine Clearance 48 mL/min (70-130); Calcium 8.7 mg/dL (7.8-10.44); Carbon Dioxide 26 mmol/L (23-31); Chloride 100 mmol/L (98-107); Estimated GFR-MDRD 81; Glucose 132 mg/dL (83-110); Potassium 3.5 mmol/L (3.5-5.1); Sodium 135 mmol/L (136-145)
[2018-07-16] MEDS: Arformoterol 15 MCG/2 ML NEB NEB SCH ×2 (07:34→19:02)
[2018-07-16] MEDS: Budesonide 0.5 MG/2 ML NEB INH SCH ×2 (07:35→19:01)
[2018-07-16] MEDS: Aspirin 81 mg Enteric Coated Tablet PO SCH (08:27)
[2018-07-16] MEDS: Megestrol Acetate 40 MG TAB PO SCH (08:28)
[2018-07-16] MEDS ORDERED: Amlodipine 5 MG TAB PO SCH (09:00)
[2018-07-16] MEDS: HumaLOG 300 UNITS/3 ML VIAL SC PRN ×2 (11:08→17:28)
[2018-07-16] MEDS ORDERED: Polyethylene Glycol 3350 17 GM Packet PO PRN (12:31)
--- NOTE | 2018-07-16 12:31 | PDOC.PN ---
- Subjective Encounter Start Date: 07/16/18 Encounter Start Time: 12:27 Subjective: Pt without complaints, feels ready to go home. Denies any pain or -: problems. Denies feeling lightheaded. - Objective Resuscitation Status - Order Detail: 07/14/18 19:05 Resuscitation Status Routine Resuscitation Status: FULL: Full Resuscitation Vital Signs & Weight: Vital Signs (12 hours) Temp Pulse Resp BP BP BP BP 07/16/18 11:10 98.6 F 80 18 106/55 L 07/16/18 09:16 97.1 F L 70 18 113/59 L 117/60 107/58 L 07/16/18 08:27 70 07/16/18 08:00 156/73 H 07/16/18 07:59 07/16/18 07:34 70 14 07/16/18 04:00 98.5 F 70 20 186/76 H Pulse Ox 07/16/18 11:10 96 07/16/18 09:16 96 07/16/18 08:27 07/16/18 08:00 07/16/18 07:59 96 07/16/18 07:34 98 07/16/18 04:00 95 Weight Admit Weight 122 lb 12.76 oz Weight 118 lb I&O: 07/15/18 07/16/18 07/17/18 06:59 06:59 06:59 Intake Total 1038 1270 Output Total 100 1075 Balance 938 195 Result Diagrams: 07/16/18 04:40 07/16/18 04:40 Additional Labs: Accuchecks 07/16/18 07/16/18 07/15/18 10:29 05:44 20:20 POC Glucose 244 H 129 H 170 H 07/15/18 16:50 POC Glucose 167 H EKG Reviewed by me: Yes (tele - av paced 70's) Phys Exam - Physical Examination Constitutional: NAD Respiratory: no wheezing, no rales, no rhonchi distant breath sounds, no audible rales Cardiovascular: RRR, no significant murmur Gastrointestinal: soft, non-tender, no distention, positive bowel sounds Musculoskeletal: no edema Neurological: non-focal, moves all 4 limbs Psychiatric: normal affect Dx/Plan (1) JESUS (acute kidney injury) Code(s): N17.9 - ACUTE KIDNEY FAILURE, UNSPECIFIED Status: Resolved (2) Hyperkalemia Code(s): E87.5 - HYPERKALEMIA Status: Resolved (3) Metabolic acidosis Code(s): E87.2 - ACIDOSIS Status: Resolved (4) Syncope Code(s): R55 - SYNCOPE AND COLLAPSE Status: Resolved (5) Leukocytosis Code(s): D72.829 - ELEVATED WHITE BLOOD CELL COUNT, UNSPECIFIED Status: Resolved (6) Coronary artery disease Code(s): I25.10 - ATHSCL HEART DISEASE OF [place] CORONARY ARTERY W/O ANG PCTRS Status: Chronic (7) COPD (chronic obstructive pulmonary disease) Status: Chronic Qualifiers: COPD type: COPD with acute exacerbation Qualified Code(s): J44.1 - Chronic obstructive pulmonary disease with (acute) exacerbation (8) Malnutrition Code(s): E46 - UNSPECIFIED PROTEIN-CALORIE MALNUTRITION Status: Chronic Qualifiers: Malnutrition type: protein-calorie malnutrition Protein-calorie malnutrition severity: moderate Qualified Code(s): E44.0 - Moderate protein- calorie malnutrition (9) Hypertension Code(s): I10 - ESSENTIAL (PRIMARY) HYPERTENSION Status: Chronic (10) Protein-calorie malnutrition, severe Code(s): E43 - UNSPECIFIED SEVERE PROTEIN-CALORIE MALNUTRITION Status: Chronic - Plan * * Appreciate Nephro consult - JESUS/hyperkalemia/met acidosis - resolved * Syncope - pt with low normal bp's today. Started on amlodipine for bp's in the 170's yesterday, will d/c this medication. * Continue beta-marie and long-acting nitrate * * DM - continue ISS, resume low dose metformin * * Constipation - start on docusate and order prn miralax * * Weakness - PT/OT and consideration of SNF - pt declines this, desires to be d/ c to home. * * Hypertension - continue metoprolol and isosorbide, hold benjy-i due to JESUS and d /c amlodipine * * continue other appropriate home meds * duonebs prn, breathing normal and asx. * * Cachexia/severe protein calorie malnutrition - director custom consult, start supplements. * * dvt prophy - scd's * gi prophy - not indicated * code status full * * recommend following bp's today here as low-normal currently, and plan for d/c tomorrow to home with home health if no changes overnight. Pt agrees with plan.
--- NOTE | 2018-07-16 12:43 | PQF ---
Date: 07-16-18 ATTN: DR. JC AGUSTIN Please exercise your independent, professional judgment in responding to the clarification form. Clinical indicators are provided on the bottom of this form for your review Please check appropriate box(s): [xx ] Protein Calorie Malnutrition: [ ] Mild [ ] Moderate [ xx ] Severe [ ] Other Malnutrition (please specify) __ [ ] Other diagnosis [ ] Unable to determine In addition, please specify: Present on Admission (POA): [ xx ] Yes [ ] No [ ] Unable to determine CLINICAL INDICATORS - SIGNS / SYMPTOMS / LABS: BMI: 16.5 H&P: DAUGHTER HAS NOTICED A 20 POUND WEIGHT LOSS OVER THE PAST FEW MONTHS, AND THE PATIENT DOES HAVE A HISTORY OF POOR APPETITE AND IS ON MEGACE FOR THIS. CACHEXIA AND POOR APPETITE. MOTOR CHECKER CONSULT 07-15-18: UBW is 120-130 lbs, says he lost down to 105 lbs but does not remember when that was. Weight was measured at 120 lbs during recent admit on 07/01 and 105 lbs in February 2017. RISK FACTORS: H&P: DAUGHTER HAS NOTICED A 20 POUND WEIGHT LOSS OVER THE PAST FEW MONTHS, AND THE PATIENT DOES HAVE A HISTORY OF POOR APPETITE AND IS ON MEGACE FOR THIS. CACHEXIA AND POOR APPETITE. TREATMENT: MOTOR CHECKER CONSULT 07-15-18: 1. Recommend a Heart Healthy/Consistent Carb (2000 bety) diet 2. Recommend Glucerna Shakes BID in between meals Moderate Malnutrition (in acute illness) Energy Intake: <75% of estimated energy requirement for > 7 days Weight Loss: 1-2%/1 week; 5%/ 1 month; 7.5%/3 months Other: mild body fat loss; mild muscle mass loss; mild fluid accumulation; Severe Malnutrition (in acute illness) Energy Intake: < 50% of estimated energy requirement for > 5 days Weight Loss: >1-2%/1 week; >5%/1 month; >7.5%/3 months Other: moderate body fat loss; moderate muscle mass loss; moderate- severe fluid accumulation; measurably reduced shellfish shucker strength Moderate Malnutrition (in chronic illness) Energy Intake: <75% of estimated energy requirement for >1 month Weight Loss: 5%/1 month; 7.5%/3 months; 10%/6 months; 20%/1 year Other: mild body fat loss; mild muscle mass loss; mild fluid accumulation Severe Malnutrition (in chronic illness) Energy Intake: <75% of estimated energy requirement for >1 month Weight Loss: >5%/1 month; >7.5%/3 months; >10%/6 months; >20%/1 year Other: severe body fat loss; severe muscle mass loss; severe fluid accumulation ; measurably reduced shellfish shucker strength (This form is maintained as a part of the permanent medical record) 2014 [email or web address]. All Rights Reserved PARTH [email or web address] Office: [phone] [facility] [place] DIVISIONMonica
[2018-07-16] MEDS ORDERED: Docusate 100 MG CAP PO SCH (12:45)
--- NOTE | 2018-07-16 15:28 | PRG ---
DATE OF SERVICE: 07/16/2018 SUBJECTIVE: Patient was seen and examined at bedside and overnight events noted. Patient denies any shortness of breath or chest pain or palpitation. No history of nausea or vomiting or diarrhea or fever or chills or cramps. OBJECTIVE: GENERAL: This is a well built male, in no apparent distress. VITAL SIGNS: Temperature heart rate 80. Respiratory rate 18. Blood pressure 106/55. HEENT: Atraumatic, normocephalic. Oral mucosa is moist NECK: Supple. CARDIOVASCULAR: S1, S2 heard. Rate and rhythm regular. RESPIRATORY: Clear to auscultation. GASTROINTESTINAL: Abdomen is soft. MUSCULOSKELETAL: No tenderness. No edema. DERMATOLOGIC: No skin rash. NEUROLOGIC: Alert and awake and oriented X3. No focal neurologic deficits. Moving all the extremities. PSYCHIATRIC: Mood and affect normal. LABORATORY DATA: Potassium is 3.5, BUN creatinine is 0.9. ASSESSMENT AND PLAN: 1. Acute kidney injury, stable. Creatinine is stable. 2. Chronic kidney disease. 3. Hypertension. 4. Anemia. 5. Renal function is better. I will sign off. Please call back with any questions. Avoid nephrotoxins and monitor renal function. Job ID: [id number]
[2018-07-16] MEDS: Mirtazapine 15 MG TAB PO SCH (20:51)
[2018-07-16] MEDS: Atorvastatin Calcium 20 MG TAB PO SCH (20:51)
[2018-07-16] MEDS: Gabapentin 300 MG CAP PO SCH (20:51)
[2018-07-16] MEDS: Docusate 100 MG CAP PO SCH (20:51)
[2018-07-17 05:42] LABS: Anion Gap 12 mmol/L (10-20); BUN (Urea Nitrogen) 20 mg/dL (8.4-25.7); Calc. Creatinine Clearance 47 mL/min (70-130); Calcium 8.5 mg/dL (7.8-10.44); Carbon Dioxide 25 mmol/L (23-31); Chloride 103 mmol/L (98-107); Estimated GFR-MDRD 78; Glucose 104 mg/dL (83-110); Potassium 3.6 mmol/L (3.5-5.1); Sodium 136 mmol/L (136-145)
[2018-07-17] MEDS: Arformoterol 15 MCG/2 ML NEB NEB SCH (07:06)
[2018-07-17] MEDS: Budesonide 0.5 MG/2 ML NEB INH SCH (07:08)
[2018-07-17] MEDS ORDERED: metFORMIN 500 MG TAB PO SCH (08:00)
[2018-07-17] MEDS: Docusate 100 MG CAP PO SCH (09:20)
[2018-07-17] MEDS: Megestrol Acetate 40 MG TAB PO SCH (09:20)
[2018-07-17] MEDS: Aspirin 81 mg Enteric Coated Tablet PO SCH (09:20)
[2018-07-17 11:19] VITALS: TEMP 97.8
[2018-07-17 14:15] VITALS: BP 141/73
--- NOTE | 2018-07-17 16:43 | DIS ---
DATE OF ADMISSION: 07/14/2018 DATE OF DISCHARGE: 07/17/2018 DISCHARGE DISPOSITION: Discharge disposition is to anticipated inpatient rehab. CONSULTANTS: Nephrology, Dr. Cabrera and Dr. Ricketts; Cardiology, Dr. Pérez. MEDICATIONS: Medications are reconciled at discharge. Discontinued medications are ramipril due to acute kidney injury. Changed medications; metformin changed to 500 mg once daily. Medications to continue; 1. Aspirin 81 mg two tablets daily. 2. Atorvastatin 20 mg at bedtime. 3. Biotin 5000 mcg daily. 4. Vitamin D3 1000 units daily. 5. Breo Ellipta one inhalation b.i.d. 6. Gabapentin 300 mg at bedtime. 7. Imdur 30 mg daily. 8. Megace 40 mg daily. 9. Mirtazapine 15 mg at bedtime. 10. Thiamine one tablet daily. 11. Stiolto two puffs daily. 12. Coenzyme Q10 100 mg daily. New medication; 1. Colace 100 mg twice daily. 2. MiraLAX 17 g daily as needed. FINAL DIAGNOSES: 1. Acute kidney injury with metabolic acidosis and hyperkalemia secondary to dehydration, LISA inhibitor use, resolved. 2. Syncope, likely secondary to orthostatic hypotension. 3. Leukocytosis, resolved. 4. Hyponatremia, mild and asymptomatic. SECONDARY DIAGNOSES: 1. Anemia, stable. 2. Coronary artery disease, asymptomatic. 3. Dyslipidemia. 4. Severe protein calorie malnutrition. 5. Chronic obstructive pulmonary disease, stable. 6. Diastolic heart failure, compensated. 7. Diabetes mellitus, type 2. HISTORY OF PRESENT ILLNESS: Mr. Durham is an 83-year-old male with the above medical problems, who presented to the emergency room after a fall. The patient reported that he was sitting on the sofa and heard his requesting help in another room. He got up, noticed his head was spinning and then had a syncopal event. Hospitalists were called for this as well as the acute kidney injury and hyperkalemia. HOSPITAL COURSE: 1. The patient was hydrated with a bicarbonate drip, and he received a dose of Kayexalate and the hyperkalemia resolved. The acute kidney injury also resolved and his renal function has remained normal. For this syncopal event, he was evaluated on telemetry and found to be in a sinus rhythm, and was evaluated by Dr. Pérez of Cardiology with recommendation to hold his LISA inhibitor. His blood pressures during one day of this hospitalization were up to the 170 systolic and amlodipine was initiated at a low dose. However, the following day, his blood pressures were in the 100 systolic and this was subsequently discontinued. His blood pressures over the past 24 hours have ranged from 106/55 to 157/74 with the majority in the 120s and 130s. The patient is asymptomatic with this and is able to be up and ambulate with the assistance of a walker. He has been continued on his usual beta marie as well as the Imdur. 2. Severe protein calorie malnutrition, the patient was evaluated by dietitian here with recommendation for Glucerna three times daily to help meet his calorie needs. He has been continued on a heart-healthy diet. 3. The patient's blood sugars have been well controlled here. They have ranged from 104 fasting to 244 yesterday. The metformin was restarted today at just 500 mg once daily. This can be monitored in the outpatient setting. 4. The patient has been continued on his usual medications for mood, sleep and appetite here. The only discontinued medications are as noted above, further reasons noted above. 5. The patient does have weakness and debility in general and is recommended inpatient rehab. It is anticipated he will be discharged there today. 6. The patient on admission did have an elevated white blood cell count of 16.9, this trended back to normal with IV fluid hydration and was likely related to the acute kidney injury. No antibiotics were indicated. PHYSICAL EXAMINATION: VITAL SIGNS: On day of discharge, temp 97.8, pulse 75, respirations 20, sats 96% on room air. Blood pressure 134/63. GENERAL: Awake, alert, responsive, in no apparent distress. Able to answer questions appropriately. LUNGS: Clear to auscultation bilaterally. HEART: Normal S1, S2. Regular rate and rhythm. No significant murmur. ABDOMEN: Soft with present bowel sounds. EXTREMITIES: Thin. No clubbing, cyanosis, or edema. RETANA FINDINGS AND TEST RESULTS: Renal panel today 8.4, 12.8, 37.6, 180. Chemistry; 136, 3.6, 103, 25, 20, 0.93, 104. Urinalysis on admission, present glucose, small leukocyte esterase, 4 to 6 squamous cells. Chest x-ray on July 14 shows no acute cardiopulmonary findings, present emphysema. DIET: Heart healthy with Glucerna supplements t.i.d. ACTIVITY: Encouraged in the context of PT and OT. CODE STATUS: Full. DISCHARGE DISPOSITION: Anticipated inpatient rehab. FOLLOWUP: 1. Followup is needed with Dr. Sosa after discharge from inpatient rehab for review of this hospitalization and to address any health needs. 2. Follow up with Cardiology, as previously instructed with Dr. Pérez. 3. Follow up with Nephrology if any concerns about renal function after discharge from rehab. 4. I reviewed with patient this hospitalization, current condition, he is agreeable to going to rehab to work on strengthening. No questions or further needs at the end of evaluation. Total time coordinating discharge is 40 minutes. Job ID: [id number]
== END 2018-07-17 15:40 | disposition short-term general hospital (02) | DRG 682 ==
LOC: ERS 14:54 → 2NO 17:00
PROVIDERS: ADMIT Family Medicine; ATTEND Family Medicine
DX: N17.9 Acute kidney failure, unspecified (principal); E43 Unspecified severe protein-calorie malnutrition; I50.32 Chronic diastolic (congestive) heart failure; R64 Cachexia; E87.2 Acidosis; I13.0 Hypertensive heart and chronic kidney disease with heart failure and stage 1 through stage 4 chronic kidney disease, or unspecified chronic kidney disease; Z68.1 Body mass index [BMI] 19.9 or less, adult; E87.1 Hypo-osmolality and hyponatremia; E87.5 Hyperkalemia; E78.5 Hyperlipidemia, unspecified; I25.10 Atherosclerotic heart disease of native coronary artery without angina pectoris; J44.9 Chronic obstructive pulmonary disease, unspecified; N18.9 Chronic kidney disease, unspecified; E11.22 Type 2 diabetes mellitus with diabetic chronic kidney disease; D72.829 Elevated white blood cell count, unspecified; K59.00 Constipation, unspecified; I95.1 Orthostatic hypotension; D63.1 Anemia in chronic kidney disease; W08.XXXA Fall from other furniture, initial encounter; Y92.018 Other place in single-family (private) house as the place of occurrence of the external cause; Z95.5 Presence of coronary angioplasty implant and graft; Z95.0 Presence of cardiac pacemaker; Z79.899 Other long term (current) drug therapy; Z79.84 Long term (current) use of oral hypoglycemic drugs; Z79.82 Long term (current) use of aspirin
CPT/HCPCS: 36415; 36416; 70450; 71045; 76770; 80048; 80053; 81003; 81015; 82550; 83880; 84443; 84484; 85025; 85610; 85730; 93005; 94640; 94760; 96360; J0360; J7070; J7626; S0179

== ENCOUNTER 2018-11-21 18:29 | Inpatient (IN) | payer MEDICARE ==
--- NOTE | 2018-11-21 19:04 | RAD ---
Exam: Chest one view HISTORY:Weakness Comparison: 10/10/2018 FINDINGS: Lungs: Hyperinflated and lucent Cardiac and mediastinal silhouette:Stable Pulmonary vessels: Mild prominence Pleural Spaces: Clear Pneumothorax: None Osseous abnormalities: None of acuity. IMPRESSION: Stable chest
[2018-11-21 19:19] LABS: #Lymphocytes 0.9 thou/uL (1.20-3.40); #Monocytes 0.6 thou/uL (0.11-0.59); #Neutrophils 10.6 thou/uL (1.40-6.50); %Basophils 0.2 % (0.0-1.0); %Eosinophils 0.3 % (0.0-10.0); %Lymphocytes 7.7 % (21.0-51.0); %Monocytes 4.6 % (0.0-10.0); %Neutrophils 87.2 % (42.0-75.0); Hemoglobin 15.6 g/dL (14.0-18.0); Mean Corpuscular HGB CONC 32.9 g/dL (32.0-36.0); Mean Corpuscular Hemoglobin 31.8 pg (27.0-31.0); Mean Corpuscular Volume 96.7 fL (78.0-98.0); Mean Platelet Volume 10.2 fL (7.4-10.4); Platelet Count 126 thou/uL (130-400); RBC Distribution Width 13.9 % (11.5-14.5); White Blood Cell (WBC) Count 12.2 thou/uL (4.8-10.8)
[2018-11-21 19:39] LABS: ALT (SGPT) 27 U/L (8-55); AST (SGOT) 32 U/L (5-34); Albumin 3.9 g/dL (3.4-4.8); Alkaline Phosphatase 82 U/L (40-110); Anion Gap 17 mmol/L (10-20); BUN (Urea Nitrogen) 35 mg/dL (8.4-25.7); Bilirubin, Total 0.6 mg/dL (0.2-1.2); Calc. Creatinine Clearance 0 mL/min (70-130); Calcium 9.5 mg/dL (7.8-10.44); Carbon Dioxide 19 mmol/L (23-31); Chloride 104 mmol/L (98-107); Estimated GFR-MDRD 53; Glucose 282 mg/dL (83-110); Magnesium 1.7 mg/dL (1.6-2.6); Protein, Total 6.9 g/dL (5.8-8.1); Sodium 135 mmol/L (136-145)
[2018-11-21 20:11] LABS: CKMB 6.2 ng/mL (0-6.6)
[2018-11-21] MEDS ORDERED: Aspirin Chewable 81 MG TAB ONE (21:27)
[2018-11-21] MEDS ORDERED: methylPREDNISolone Sod Succ/PF 125 MG/2 ML VIAL ONE (21:31)
[2018-11-21 21:32] LABS: Bilirubin Negative (Negative); Blood, Urine Negative (Negative); Clarity Clear (Clear); Glucose, Urine (Dipstick) Greater than 1000 mg/dL (Negative); Leukocyte 25 Leu/uL (Negative); Mucous/LPF Rare LPF (<2+); Nitrite Negative (Negative); Protein, Urine (Dipstick) 20 mg/dL (Neg-Trace); Squamous Epithelial 0-3 HPF (0-3); Urobilinogen Normal mg/dL (Less than 2); Yeast-Budding 3+ HPF (None Seen)
[2018-11-21 21:36] LABS: Bacteria/HPF Rare-Few HPF (None Seen); RBC/HPF 0-3 HPF (0-3)
[2018-11-21] MEDS ORDERED: cefTRIAXone\\ROCEPHIN 1 GM VIAL ONE (22:55)
[2018-11-21 23:18] LABS: Troponin I 0.018 ng/mL (< 0.028)
[2018-11-22] MEDS ORDERED: Ondansetron ODT 4 MG TAB PO PRN (00:22)
[2018-11-22] MEDS ORDERED: Ondansetron PF 4 MG/2 ML Vial IVP PRN (00:22)
[2018-11-22] MEDS ORDERED: Acetaminophen 650 MG Suppository PR PRN (00:22)
[2018-11-22] MEDS ORDERED: Dextrose 50% Abboject 50 ML SYRINGE SLOW IVP PRN (00:26)
[2018-11-22] MEDS ORDERED: Dextrose 5% in Water 1,000 ML IV PRN (00:26)
[2018-11-22 01:10] VITALS: BMI 16.3
[2018-11-22 01:12] LABS: Troponin I 0.019 ng/mL (< 0.028)
[2018-11-22] MEDS ORDERED: PROVENTIL INHALER 6.7 G (200 INHALATIONS) INH PRN (01:14)
[2018-11-22] MEDS ORDERED: Sodium Chloride 0.9% 1,000 ML IV SCH (01:30)
--- NOTE | 2018-11-22 02:09 | HP ---
TIME OF ASSESSMENT: 2299. CHIEF COMPLAINT: Weakness and shortness of breath. HISTORY OF PRESENT ILLNESS: Mr. Durham is an 83-year-old gentleman with a known history of COPD and CHF, who presents due to complaints of lower extremity weakness and shortness of breath. The patient states his general strength has been declining over the last several days. He states he is normally able to mobilize at home, but today was unable to stand due to leg weakness. He reports feeling as if his legs would give way. He also reports having increasing shortness of breath over the last several days. He has had hospitalizations in the past due to shortness of breath associated with CHF exacerbation and pneumonia. The patient denies having any recent fevers, chills, or sweats. Denies having any cough or hemoptysis. Denies any chest pain. Has not had any abdominal pain or cramping. Denies any dizziness. All other review of systems are negative. In the emergency department, he underwent laboratory studies which were notable for a white count of 12.2, neutrophils of 87.2. Sodium 135, potassium 5, anion gap 17, BUN 35, creatinine 1.29, GFR 53. Renal function appears to be lower than his baseline. He also underwent a chest x-ray which showed no acute intrathoracic abnormalities. The chest appeared stable when compared to recent x-ray done in October 2018. He also underwent a urinalysis which showed greater than 1000 glucose, 11 to 20 white blood cells, 4 to 6 hyaline casts, 3+ yeast, but no bacteria or nitrites. Leukocyte esterase normal. PAST MEDICAL HISTORY: 1. History of pneumonia. 2. Hypertension. 3. Dyslipidemia. 4. Type 2 diabetes mellitus. 5. Chronic diastolic heart failure with preserved EF. 6. CAD status post stents. 7. COPD. 8. Cachexia. PAST SURGICAL HISTORY: 1. Aortic valve replacement. 2. Cardiac stents. 3. Pacemaker. SOCIAL HISTORY: The patient lives with his , who is his primary co founder and chief strategy officer. He denies any tobacco use or alcohol consumption. FAMILY HISTORY: Significant for diabetes. ALLERGIES: NO KNOWN DRUG ALLERGIES. CURRENT MEDICATIONS: 1. Metformin. 2. Albuterol. 3. Alprazolam. 4. Aspirin. 5. Atorvastatin. 6. Biotin. 7. Vitamin D3. 8. Breo Ellipta. 9. Gabapentin. 10. Tresiba. 11. DuoNeb. 12. Imdur. 13. Megace. 14. Mirtazapine. 15. Prednisone. 16. Vitamin B1. 17. Respimat. 18. Coenzyme Q10. PHYSICAL EXAMINATION: GENERAL: Well-developed, thin-appearing gentleman, who is in no acute distress. He is resting comfortably, eating a sandwich while lying in bed. HEENT: Normocephalic and atraumatic. Pupils are equal, round, and reactive to light. Extraocular movements intact. Sclerae without icterus. Oropharynx is clear. NECK: Supple. LUNGS: Clear to auscultation bilaterally without any wheezes, rales, or rhonchi. Decreased breath sounds at the bilateral bases. ABDOMEN: Soft, nontender, nondistended. Normoactive bowel sounds present. No renal angle tenderness. EXTREMITIES: Mechanical SCDs in place. No lower extremity edema or swelling. No calf tenderness. NEUROLOGIC: Alert and oriented x3. No neuro deficits on exam. SKIN: Without rash or jaundice. INVESTIGATIONS: As mentioned above in HPI. IMPRESSION AND PLAN: Mr. Durham is an 83-year-old gentleman who has been referred for management of the followin. Shortness of breath. The patient reports having shortness of breath over the last several days with exertion and while at rest. He denies any cough or fever , however, noted to have a white count with a left shift. I will add lactic acid and procalcitonin. Chest x-ray was unremarkable. The patient has been started on Rocephin for chronic obstructive pulmonary disease exacerbation as well as prednisone. He is on steroids at home. We will continue antibiotics as well as DuoNeb. Of note, the patient's arc trimmer is Dr. Garduno. He does appear tachypneic while eating. ABG as well as a D-dimer. 2. Lower extremity weakness. The patient states he has had gradual weakness for the last several days and today, unable to stand. Does not appear to have any underlying urinary tract infection. He has had issues with his mobility in the past. We will place a consult to PT/OT. 3. Hypertension. We will monitor blood pressure and resume home medications once reconciled. 4. Type 2 diabetes mellitus. We will monitor glucose. Insulin sliding scale initiated. We will resume home insulin. We will hold metformin for now. 5. Chronic obstructive pulmonary disease. We will resume home medications once verified and we will continue IV antibiotics as well as steroids as per above. 6. Congestive heart failure. Chest x-ray without any evidence of fluid overload. The patient without any edema on exam. BNP normal. We will give gentle hydration. 7. Gastrointestinal prophylaxis. Famotidine 20 mg IV b.i.d. 8. Deep venous thrombosis prophylaxis. Mechanical SCDs. 9. Code status full. His surrogate decision maker is his daughter, Lzibeth Gentile. The patient's case to be discussed with attending for further recommendations. Job ID: [id number] [email or web address]
[2018-11-22] MEDS: Sodium Chloride 0.9% 1,000 ML IV SCH ×2 (02:34→15:44)
[2018-11-22] MEDS ORDERED: Heparin 10,000 UNITS/ 10 ML VIAL SLOW IVP SCH (04:15)
[2018-11-22] MEDS ORDERED: Heparin 25,000 units/D5W 500 ML IVPB SCH (04:15)
[2018-11-22 04:33] LABS: Actual Bicarbonate (HCO3a) 22.5 mEq/L (22-28); Base Excess (BEa) -1.1 mEq/L (-2.0 to +3.0); CO2 Tension 34.3 mmHg (35.0-45.0); Hemoglobin (Hb) 13.5 g/dL (14.0-18.0); Potassium - ABG Lab 4.75 mmol/L (3.70-5.30); pH, Arterial 7.44 (7.35-7.45)
[2018-11-22 04:34] LABS: Puncture Site RRADIAL
[2018-11-22 04:35] LABS: ALV-art Gradient 33.855 (0-20)
[2018-11-22 05:20] LABS: Lactic Acid 2.2 mmol/L (0.5-2.2)
[2018-11-22 05:22] LABS: Hemoglobin 13.4 g/dL (14.0-18.0); Platelet Count 106 thou/uL (130-400)
[2018-11-22 05:23] LABS: #Lymphocytes 0.4 thou/uL (1.20-3.40); #Monocytes 0.1 thou/uL (0.11-0.59); #Neutrophils 9.5 thou/uL (1.40-6.50); %Basophils 0.2 % (0.0-1.0); %Eosinophils 0.1 % (0.0-10.0); %Lymphocytes 3.9 % (21.0-51.0); %Neutrophils 94.8 % (42.0-75.0); Hemoglobin 13.5 g/dL (14.0-18.0); Mean Corpuscular HGB CONC 33.8 g/dL (32.0-36.0); Mean Corpuscular Hemoglobin 31.9 pg (27.0-31.0); Mean Corpuscular Volume 94.3 fL (78.0-98.0); Mean Platelet Volume 9.9 fL (7.4-10.4); Platelet Count 104 thou/uL (130-400); RBC Distribution Width 13.7 % (11.5-14.5); Red Blood Cell (RBC) Count 4.23 mill/uL (4.70-6.10)
[2018-11-22 05:24] LABS: Anion Gap 15 mmol/L (10-20); BUN (Urea Nitrogen) 36 mg/dL (8.4-25.7); Calc. Creatinine Clearance 34 mL/min (70-130); Carbon Dioxide 20 mmol/L (23-31); Chloride 104 mmol/L (98-107); Estimated GFR-MDRD 55; Glucose 457 mg/dL (83-110); Potassium 4.9 mmol/L (3.5-5.1); Sodium 134 mmol/L (136-145)
[2018-11-22] MEDS: HumaLOG 300 UNITS/3 ML VIAL SC PRN ×4 (05:49→20:31)
[2018-11-22] MEDS: Mometasone/Formoterol 120 PUFF INHALER INH SCH ×2 (07:25→18:19)
--- NOTE | 2018-11-22 08:03 | CT ---
CT arteriogram chest with IV contrast and 3-D imaging 11/22/2018 performed on emergency basis at 0319 hours HISTORY: Tachypnea. Chest pain. Dyspnea. COMPARISON: 10/10/2018. FINDINGS: On the preliminary report by Dr. Oneal mercer, small multifocal segmental and subsegmental righ t lung emboli were described. The filling defects that are present are predominantly nonobstructive. I favor them to be wall thickening rather than true emboli. While a few small very far peripheral filling defects could be present, I would favor minimal if any findings of pulmonary emboli. Appear to be clinically significant. Pulmonary hyperinflation. Atherosclerosis.
[2018-11-22] MEDS ORDERED: predniSONE 20 MG TAB PO SCH ×2 (09:00)
[2018-11-22] MEDS ORDERED: predniSONE 5 MG TAB PO SCH (09:00)
[2018-11-22] MEDS ORDERED: ALPRAZolam 0.25 MG TAB PO SCH (09:00)
[2018-11-22] MEDS ORDERED: Biotin [Biotin] 5,000 MCG PO SCH (09:00)
[2018-11-22] MEDS ORDERED: Aspirin Chewable 81 MG TAB PO SCH (09:00)
[2018-11-22] MEDS: Isosorbide Mononitrate (ER) 30 MG TAB PO SCH (09:33)
[2018-11-22] MEDS: Aspirin 81 mg Enteric Coated Tablet PO SCH (09:33)
[2018-11-22] MEDS: Megestrol Acetate 40 MG TAB PO SCH (09:33)
[2018-11-22] MEDS: Famotidine/PF 20 mg/2ml Vial SLOW IVP SCH (09:33)
[2018-11-22] MEDS: Ubidecarenone 50 MG CAP PO SCH (09:34)
[2018-11-22] MEDS: Thiamine 100 MG TAB PO SCH (09:34)
[2018-11-22 11:45] LABS: PTT Greater than 250.0 SEC (22.9-36.1)
[2018-11-22] MEDS ORDERED: Apixaban 2.5 MG TAB PO SCH (13:15)
--- NOTE | 2018-11-22 14:24 | ULT ---
ULTRASOUND DOPPLER DUPLEX VENOUS BILATERAL LOWER EXTREMITIES: DATE: 11/22/2018 HISTORY: 83-year-old male with pulmonary thromboembolism. TECHNIQUE: Grayscale, color-flow, and spectral analysis, of major veins of bilateral lower extremities. FINDINGS: There is demonstration of blood flow with normal compressibility, of the bilateral common femoral, pr ofunda femoral, greater saphenous, femoral, popliteal, and posterior tibial, veins. IMPRESSION: Negative. No deep venous thrombosis of bilateral lower extremities.
--- NOTE | 2018-11-22 16:04 | PDOC.HOSPP ---
- Subjective Subjective: Doing ok. He denies any CP or SOB now. Family indicates he has not been getting up and around much over the past week or so. He says he does not have pain, but just doesnt want to get up. Family says when they try to get him up he doesn't have the strength to stand. 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 Was to see neurology. - Objective Vital Signs & Weight: Vital Signs (12 hours) Temp Pulse Resp BP Pulse Ox 11/22/18 15:22 97.7 F 94 34 H 158/85 H 99 11/22/18 10:52 98.7 F 83 26 H 152/72 H 100 11/22/18 10:36 86 22 H 100 11/22/18 08:10 98.0 F 97 40 H 135/75 93 L 11/22/18 07:18 99 26 H 100 Weight Admit Weight 117 lb 6.4 oz Weight 117 lb 6.4 oz I&O: 11/21/18 11/22/18 11/23/18 06:59 06:59 06:59 Intake Total 837 Output Total 300 Balance 537 Result Diagrams: 11/22/18 04:48 11/22/18 04:48 Additional Labs: Accuchecks 11/22/18 11/22/18 11/22/18 10:41 05:37 00:15 POC Glucose 311 H 388 H 101 Hospitalist ROS - Medication Medications: Active Medications Generic Name Dose Route Start Last Admin Trade Name Freq PRN Reason Stop Dose Admin Albuterol/Ipratropium 3 ml 11/22/18 02:30 11/22/18 10:36 Duoneb NEB 3 ml [id number] OLAF Administration Alprazolam 0.25 mg 11/22/18 09:00 11/22/18 09:33 Xanax PO 0.25 mg BID OLAF Administration Aspirin 162 mg 11/22/18 09:00 11/22/18 09:33 Ecotrin PO 162 mg DAILY OLAF Administration Cholecalciferol 1,000 units 11/22/18 09:00 11/22/18 09:33 Vitamin D3 PO 1,000 units DAILY OLAF Administration Coenzyme Q10 100 mg 11/22/18 09:00 11/22/18 09:34 Coenzyme Q10 PO 100 mg DAILY OLAF Administration Famotidine 20 mg 11/22/18 09:00 11/22/18 09:33 Pepcid SLOW IVP 20 mg DAILY OLAF Administration Heparin Sodium (Porcine) 0 units 11/22/18 04:15 11/22/18 05:21 Heparin 1,000 Units/Ml (10 Ml) SLOW IVP 10,000 unit ASDIR OLAF Administration Protocol Sodium Chloride 1,000 mls @ 75 mls/hr 11/22/18 02:13 11/22/18 15:44 Normal Saline 0.9% IV 1,000 mls .[id number] OLAF Administration Insulin Human Lispro 0 units 11/22/18 00:26 11/22/18 11:13 Humalog SC 5 unit .MILD SLIDING SCALE PRN Administration Mild Correctional Scale Isosorbide Mononitrate 30 mg 11/22/18 09:00 11/22/18 09:33 Imdur Er PO 30 mg DAILY OLAF Administration Megestrol Acetate 40 mg 11/22/18 09:00 11/22/18 09:33 Megace PO 40 mg DAILY OLAF Administration Mometasone Furoate/Formoterol Fumar 2 puff 11/22/18 06:30 11/22/18 07:25 Dulera 100 Mcg/5 Mcg Inhaler INH 2 puff BID-RT OLAF Administration Thiamine HCl 250 mg 11/22/18 09:00 11/22/18 09:34 Thiamine PO 250 mg DAILY OLAF Administration - Exam General Appearance: NAD, awake alert Heart: RRR, no murmur, no gallops, no rubs, normal peripheral pulses Respiratory: CTAB, no wheezes, no rales, no ronchi, normal chest expansion, no tachypnea, normal percussion Gastrointestinal: soft, non-tender, non-distended, normal bowel sounds, no palpable masses, no hepatomegaly, no splenomegaly, no bruit Extremities: no cyanosis, no clubbing, no edema Extremities - other findings: Low muscle mass of extremities. Musculoskeletal: generalized weakness Psychiatric: normal affect Hosp A/P (1) Pulmonary embolus Code(s): I26.99 - OTHER PULMONARY EMBOLISM WITHOUT ACUTE COR PULMONALE Status : Acute (2) CAD (coronary artery disease) Code(s): I25.10 - ATHSCL HEART DISEASE OF [place] CORONARY ARTERY W/O ANG PCTRS Status: Chronic (3) COPD (chronic obstructive pulmonary disease) Status: Chronic Qualifiers: COPD type: COPD with acute exacerbation Qualified Code(s): J44.1 - Chronic obstructive pulmonary disease with (acute) exacerbation (4) Diabetes type 2, controlled Code(s): E11.9 - TYPE 2 DIABETES MELLITUS WITHOUT COMPLICATIONS Status: Chronic (5) Hypertension Code(s): I10 - ESSENTIAL (PRIMARY) HYPERTENSION Status: Chronic (6) Pacemaker Code(s): Z95.0 - PRESENCE OF CARDIAC PACEMAKER Status: Chronic (7) Protein-calorie malnutrition, severe Code(s): E43 - UNSPECIFIED SEVERE PROTEIN-CALORIE MALNUTRITION Status: Chronic (8) S/P AVR (aortic valve replacement) Code(s): Z95.2 - PRESENCE OF PROSTHETIC HEART VALVE Status: Chronic - Plan Discussed the PE with the patient and his family. Discussed options for warfarin v. NOAC. They have decided on NOAC. Given his age, will give the Eliquis 2.5 mg bid. Will at least watch overnight to monitor respiratory status and monitor for any bleeding complications. LE doppler to determine if there is any additional clot burden. PT/OT consult. Discussed his generalized debility. This has likely contributed to the development of a DVT/PE. He is amenable to rehab. It Business Analyst consult.
--- NOTE | 2018-11-22 18:48 | CON ---
DATE OF CONSULTATION: 11/22/2018 HISTORY OF PRESENT ILLNESS: The patient is a pleasant 83-year-old gentleman, who presented with severe weakness. The patient has a long history of coronary artery disease and aortic stenosis. The patient had previously undergone PTCA and stent placement. He also had a TAVR replacement in [place] several years ago. The patient also has had placement of electronic pacemaker. The patient was in his usual state of health when he became acutely weak and he reported being mildly dyspneic. He denied having any chest discomfort. PAST MEDICAL HISTORY: 1. Coronary artery disease. 2. History of TAVR. 3. Hypertension. 4. Diabetes mellitus. 5. Dyslipidemia. 6. COPD. PAST SURGICAL HISTORY: Aortic valve replacement. SOCIAL HISTORY: Nonsmoker. MEDICATIONS: See nursing list. ALLERGIES: NO KNOWN DRUG ALLERGIES. REVIEW OF SYSTEMS: Ten-point system otherwise unremarkable except for decreased appetite. PHYSICAL EXAMINATION: GENERAL: Thin gentleman, in no acute distress. VITAL SIGNS: Blood pressure 152/72. NECK: No jugular venous distention. LUNGS: Clear to auscultation. HEART: Regular rate and rhythm. Normal S1, S2. ABDOMEN: Nondistended. EXTREMITIES: Showed no edema. VASCULAR: Radial pulses 2+. LABORATORY AND DIAGNOSTIC DATA: White blood cell count 10.0, hemoglobin 13.5, hematocrit 39.9, platelets 104. Sodium is 134, potassium 4.9, chloride 104, bicarbonate 20, BUN 36, creatinine 1.2. EKG revealed normal sinus rhythm, nonspecific T-wave abnormality. CT scan revealed multiple pulmonary emboli. IMPRESSION AND PLAN: 1. Pulmonary embolus. 2. History of coronary artery disease. 3. History of transcatheter aortic valve replacement. 4. Hypertension. 5. Dyslipidemia. 6. Diabetes mellitus. This gentleman presented with a pulmonary embolus. The patient is being treated with heparin. We will check an echocardiogram. We will follow this patient with you through his hospitalization. Job ID: [id number] [facility]
[2018-11-22] MEDS: Gabapentin 300 MG CAP PO SCH (20:31)
[2018-11-22] MEDS: Apixaban 2.5 MG TAB PO SCH (20:31)
[2018-11-22] MEDS: Insulin Glargine 10 UNITS in Pre-Filled Syringe 1 EACH SC SCH (20:31)
[2018-11-22] MEDS: Atorvastatin Calcium 20 MG TAB PO SCH (20:31)
[2018-11-22] MEDS ORDERED: INSULIN DEGLUDEC 10 UNIT SC SCH (21:00)
[2018-11-22] MEDS ORDERED: Mirtazapine 15 MG TAB PO SCH (21:00)
[2018-11-22] MEDS ORDERED: cefTRIAXone\\ROCEPHIN 2 GM in Sodium Chloride 0.9% 100 ML IVPB SCH (23:00)
[2018-11-23] MEDS: HumaLOG 300 UNITS/3 ML VIAL SC PRN ×4 (06:33→20:52)
[2018-11-23] MEDS: Sodium Chloride 0.9% 1,000 ML IV SCH (06:33)
[2018-11-23] MEDS: Mometasone/Formoterol 120 PUFF INHALER INH SCH ×2 (07:01→18:40)
[2018-11-23] MEDS: Thiamine 100 MG TAB PO SCH (09:06)
[2018-11-23] MEDS: Apixaban 2.5 MG TAB PO SCH ×2 (09:06→20:50)
[2018-11-23] MEDS: Aspirin 81 mg Enteric Coated Tablet PO SCH (09:06)
[2018-11-23] MEDS: predniSONE 20 MG TAB PO SCH (09:06)
[2018-11-23] MEDS: Megestrol Acetate 40 MG TAB PO SCH (09:06)
[2018-11-23] MEDS: Isosorbide Mononitrate (ER) 30 MG TAB PO SCH (09:06)
[2018-11-23] MEDS: Famotidine/PF 20 mg/2ml Vial SLOW IVP SCH (09:06)
[2018-11-23] MEDS: Acetaminophen 325 MG TAB PO PRN (09:07)
[2018-11-23] MEDS: Ubidecarenone 50 MG CAP PO SCH (09:07)
--- NOTE | 2018-11-23 11:25 | PDOC.HOSPP ---
- Subjective Subjective: Feels well. No complaint. No chest pain. No SOB. - Objective Vital Signs & Weight: Vital Signs (12 hours) Temp Pulse Resp BP Pulse Ox 11/23/18 07:56 97.9 F 78 16 171/85 H 97 11/23/18 07:30 97 11/23/18 06:58 95 16 98 11/23/18 03:28 97.4 F L 90 22 H 168/95 H 92 L 11/23/18 02:09 16 11/22/18 23:30 97.7 F 93 20 160/74 H 97 Weight Admit Weight 117 lb 6.4 oz Weight 117 lb 6.4 oz I&O: 11/22/18 11/23/18 11/24/18 06:59 06:59 06:59 Intake Total 2879 537 Output Total 300 Balance 3119 537 Result Diagrams: 11/22/18 04:48 11/22/18 04:48 Additional Labs: Accuchecks 11/23/18 11/23/18 11/22/18 10:45 06:08 19:42 POC Glucose 230 H 229 H 385 H 11/22/18 16:44 POC Glucose 302 H Hospitalist ROS - Medication Medications: Active Medications Generic Name Dose Route Start Last Admin Trade Name Freq PRN Reason Stop Dose Admin Acetaminophen 650 mg 11/22/18 00:22 11/23/18 09:07 Tylenol PO 650 mg Q4H PRN Administration Headache/Fever/Mild Pain (1-3) Albuterol/Ipratropium 3 ml 11/22/18 02:30 11/23/18 10:15 Duoneb NEB 3 ml [id number] OLAF Administration Apixaban 2.5 mg 11/22/18 21:00 11/23/18 09:06 Eliquis PO 2.5 mg BID OLAF Administration Aspirin 162 mg 11/22/18 09:00 11/23/18 09:06 Ecotrin PO 162 mg DAILY OLAF Administration Atorvastatin Calcium 20 mg 11/22/18 21:00 11/22/18 20:31 Lipitor PO 20 mg HS OLAF Administration Cholecalciferol 1,000 units 11/22/18 09:00 11/23/18 09:06 Vitamin D3 PO 1,000 units DAILY OLAF Administration Coenzyme Q10 100 mg 11/22/18 09:00 11/23/18 09:07 Coenzyme Q10 PO 100 mg DAILY OLAF Administration Famotidine 20 mg 11/22/18 09:00 11/23/18 09:06 Pepcid SLOW IVP 20 mg DAILY OLAF Administration Gabapentin 300 mg 11/22/18 21:00 11/22/18 20:31 Neurontin PO 300 mg HS OLAF Administration Insulin Glargine 10 units/ 0.1 mls @ 0 mls/hr 11/22/18 21:00 11/22/18 20:31 Miscellaneous Medication SC 0.1 mls HS OLAF Administration Insulin Human Lispro 0 units 11/22/18 00:26 11/23/18 11:12 Humalog SC 3 unit .MILD SLIDING SCALE PRN Administration Mild Correctional Scale Insulin Human Lispro 0 units 11/22/18 00:26 11/22/18 20:31 Humalog SC 5 unit .BEDTIME SLIDING SC PRN Administration Bedtime Correctional Scale Isosorbide Mononitrate 30 mg 11/22/18 09:00 11/23/18 09:06 Imdur Er PO 30 mg DAILY OLAF Administration Megestrol Acetate 40 mg 11/22/18 09:00 11/23/18 09:06 Megace PO 40 mg DAILY OLAF Administration Mometasone Furoate/Formoterol Fumar 2 puff 11/22/18 06:30 11/23/18 07:01 Dulera 100 Mcg/5 Mcg Inhaler INH 2 puff BID-RT OLAF Administration Prednisone 10 mg 11/23/18 08:00 11/23/18 09:06 Prednisone PO 10 mg QAM-WM OLAF Administration Thiamine HCl 250 mg 11/22/18 09:00 11/23/18 09:06 Thiamine PO 250 mg DAILY OLAF Administration - Exam General Appearance: NAD, awake alert Heart: RRR, no murmur, no gallops, no rubs, normal peripheral pulses Respiratory: CTAB, no wheezes, no rales, no ronchi, normal chest expansion, no tachypnea, normal percussion Gastrointestinal: soft, non-tender, non-distended, normal bowel sounds, no palpable masses, no hepatomegaly, no splenomegaly, no bruit Extremities: no cyanosis, no clubbing, no edema Skin: normal turgor Musculoskeletal: generalized weakness Psychiatric: normal affect, normal behavior Hosp A/P (1) Pulmonary embolus Code(s): I26.99 - OTHER PULMONARY EMBOLISM WITHOUT ACUTE COR PULMONALE Status : Acute (2) CAD (coronary artery disease) Code(s): I25.10 - ATHSCL HEART DISEASE OF [place] CORONARY ARTERY W/O ANG PCTRS Status: Chronic (3) COPD (chronic obstructive pulmonary disease) Status: Chronic Qualifiers: COPD type: COPD with acute exacerbation Qualified Code(s): J44.1 - Chronic obstructive pulmonary disease with (acute) exacerbation (4) Diabetes type 2, controlled Code(s): E11.9 - TYPE 2 DIABETES MELLITUS WITHOUT COMPLICATIONS Status: Chronic (5) Hypertension Code(s): I10 - ESSENTIAL (PRIMARY) HYPERTENSION Status: Chronic (6) Pacemaker Code(s): Z95.0 - PRESENCE OF CARDIAC PACEMAKER Status: Chronic (7) Protein-calorie malnutrition, severe Code(s): E43 - UNSPECIFIED SEVERE PROTEIN-CALORIE MALNUTRITION Status: Chronic (8) S/P AVR (aortic valve replacement) Code(s): Z95.2 - PRESENCE OF PROSTHETIC HEART VALVE Status: Chronic - Plan There was some discrepancy in the reporting of the CTA. I discussed with the radiologist on duty and he felt this likely was a small PE. Discussed the PE with the patient and his family. Discussed options for warfarin v. NOAC. They have decided on proceding with NOAC. Given his age, will give the Eliquis 2.5 mg bid. Did well with that. No bleeding complications. LE doppler to determine if there is any additional clot burden was negative. PT/OT consult. Discussed his generalized debility. This has likely contributed to the development of a DVT/PE. He is amenable to rehab. Agile Scrum Master consult.
--- NOTE | 2018-11-23 12:14 | PRG ---
DATE OF SERVICE: 11/23/2018 Mo Durham is an 83-year-old gentleman, whom I have been seeing for a period of time. Yesterday, I had a discussion regarding a code status with the patient's daughter. They told me that they were Catholics and did not believe in a DNR status. I just mentioned them that I am not so sure that any cheondoism belief has a situation like no DNR status. We need to try and make everybody comfortable. In the morning when I went to see the patient, the family told the nurse that they did not want to see Dr. Garduno anymore because he felt they are questioning their cheondoism belief. Dr. Garduno was not questioning their cheondoism belief at all. Dr. Garduno was trying to tell them that just because they are Catholics, that he can still be made a DNR. There is no other discussion other than just that. It is unfortunate that the family was upset about this situation. Mr. Durham has for a long period of time having severe COPD, severe deconditioning, and marked cachexia. Therefore, in my opinion, it is very appropriate to discuss the code status with the patient. Even though, they are not going to make him a DNR. Job ID: [id number]
--- NOTE | 2018-11-23 13:19 | EKG ---
Test Reason : WEAKNESS Blood Pressure : / mmHG Vent. Rate : 085 BPM Atrial Rate : 085 BPM P-R Int : 172 ms QRS Dur : 142 ms QT Int : 408 ms P-R-T Axes : 073 -75 080 degrees QTc Int : 485 ms Atrial-sensed ventricular-paced rhythm Abnormal ECG Confirmed by DOREEN AREVALO ([id number]), electronic news gathering editor HUA MENDEZ ([id number]) on 11/23/2018 1:19:38 PM Referred By: MICKEY Confirmed By:DOREEN AREVALO
--- NOTE | 2018-11-23 13:22 | EKG ---
Test Reason : Blood Pressure : / mmHG Vent. Rate : 088 BPM Atrial Rate : 088 BPM P-R Int : 124 ms QRS Dur : 088 ms QT Int : 370 ms P-R-T Axes : 000 038 051 degrees QTc Int : 447 ms Normal sinus rhythm Low voltage QRS Nonspecific T wave abnormality Abnormal ECG Confirmed by DOREEN AREVALO ([id number]), writer editor HUA MENDEZ ([id number]) on 11/23/2018 1:22:18 PM Referred By: Confirmed By:DOREEN AREVALO
[2018-11-23] MEDS ORDERED: ALPRAZolam 0.25 MG TAB PO SCH (19:00)
[2018-11-23] MEDS: Atorvastatin Calcium 20 MG TAB PO SCH (20:50)
[2018-11-23] MEDS: Gabapentin 300 MG CAP PO SCH (20:50)
[2018-11-23] MEDS: Insulin Glargine 10 UNITS in Pre-Filled Syringe 1 EACH SC SCH (20:51)
[2018-11-23] MEDS ORDERED: Mirtazapine 15 MG TAB PO SCH (21:00)
[2018-11-23] MEDS: ALPRAZolam 0.25 MG TAB PO SCH (21:33)
[2018-11-23] MEDS: hydrALAZINE 20 MG/ML VIAL SLOW IVP PRN (23:06)
[2018-11-23] MEDS: ALPRAZolam 0.25 MG TAB PO PRN (23:06)
[2018-11-24] MEDS: Acetaminophen 325 MG TAB PO PRN (01:02)
[2018-11-24 04:42] LABS: Hemoglobin 13.6 g/dL (14.0-18.0); Platelet Count 116 thou/uL (130-400)
[2018-11-24] MEDS: Mometasone/Formoterol 120 PUFF INHALER INH SCH (06:19)
[2018-11-24] MEDS: HumaLOG 300 UNITS/3 ML VIAL SC PRN ×2 (06:36→11:32)
[2018-11-24] MEDS: Isosorbide Mononitrate (ER) 30 MG TAB PO SCH (08:32)
[2018-11-24] MEDS: predniSONE 20 MG TAB PO SCH (08:32)
[2018-11-24] MEDS: ALPRAZolam 0.25 MG TAB PO SCH (08:32)
[2018-11-24] MEDS: Aspirin 81 mg Enteric Coated Tablet PO SCH (08:33)
[2018-11-24] MEDS: Thiamine 100 MG TAB PO SCH (08:33)
[2018-11-24] MEDS: Ubidecarenone 50 MG CAP PO SCH (08:33)
[2018-11-24] MEDS: Megestrol Acetate 40 MG TAB PO SCH (08:33)
[2018-11-24] MEDS: hydrALAZINE 20 MG/ML VIAL SLOW IVP PRN (08:34)
[2018-11-24] MEDS: Apixaban 2.5 MG TAB PO SCH (08:34)
[2018-11-24] MEDS: Famotidine/PF 20 mg/2ml Vial SLOW IVP SCH (08:35)
[2018-11-24] MEDS ORDERED: Isosorbide Mononitrate (ER) 30 MG TAB PO SCH (11:15)
[2018-11-24 11:38] VITALS: TEMP 98.3
[2018-11-24] MEDS: ALPRAZolam 0.25 MG TAB PO PRN (15:32)
[2018-11-24 15:54] VITALS: BP 129/74
--- NOTE | 2018-11-25 08:36 | CON ---
DATE OF CONSULTATION: HISTORY OF PRESENT ILLNESS: Mo Durham is an 83-year-old gentleman who was brought to the hospital, lethargic, confused. He is well known to me who has end-stage COPD. Recently, prescribed on low-flow oxygen. It is felt that he was having issues with hypoxemia with exertion. His pO2 was 73, pCO2 34, pH 7.44 when he arrived on room air. Carbon dioxide was normal. Unclear, why he is not waking up. He is probably getting excessive sedative medication. He is presently on a monitored bed. He is somewhat lethargic and confused. A CT angio was done, which was initially read of a subsegmental pulmonary emboli. Repeat study reports say no evidence of any pulmonary emboli and scan of his leg was negative. No coughing, no wheezing. Extremely weak. His blood sugars have been relatively elevated because of his low-dose prednisone, which he was taking 5 mg a day. PAST MEDICAL HISTORY: Extensive past medical history, COPD, CHF, coronary artery disease, lipidemia, and hypertension. PAST SURGICAL HISTORY: Previous surgeries including otherwise pacemaker. During his last visit Nephrology was consulted for apparently abnormal electrolyte imbalance. Otherwise, aortic valve surgery, cardiac stents, pacemaker. HOME MEDICATIONS: Include, 1. Xanax. 2. Aspirin. 3. Prednisone 5. 4. Albuterol. 5. Spiriva. 6. Respimat. 7. Insulin. 8. Metformin. 9. Co Q-10. 10. Megace. 11. Mirtazapine. ALLERGIES: NONE. REVIEW OF SYSTEMS: Difficult to obtain. PHYSICAL EXAMINATION: VITAL SIGNS: His saturations are 99% on room air, temperature 97, pulse 94, blood pressure 158/85. CHEST: No wheezing or crackles. CARDIAC: Normal S1, S2. ABDOMEN: Soft, no masses. . LABORATORY DATA: White count 10,000. Lytes are normal. Creatinine 1.6, sodium 134, glucose 311. IMPRESSION: 1. Chronic obstructive pulmonary disease exacerbation. 2. Encephalopathy, probably multiple medication on board, surprisingly, no evidence of elevated pCO2. 3. Congestive heart failure. 4. Azotemia. PLAN: I would clearly stop all sedative medication. Regarding his Eliquis as mentioned his repeat report shows no evidence of pulmonary emboli. His repeat echo shows his EF was normal. Diastolic dysfunction. We will discuss and follow. Consultation note, 70 minutes, 50% direct patient care. Job ID: [id number]
--- NOTE | 2018-11-26 06:38 | PQF ---
[employer] Supervisor Crystal Reports Winform SARAH Zhao KAREEN BEST MD [id number] [address] [place] [address] [id number] CLINICAL DOCUMENTATION CLARIFICATION FORM: POST DISCHARGE Addendum to original discharge summary date: ____ Late entry note date: __ DATE: 11/26/2018 ATTN: KAREEN BEST MD Please exercise your independent, professional judgment in responding to the clarification form. Clinical indicators are provided on the bottom of this form for your review Please check appropriate box(s): Conflicting documentation was noted in the Medical Record, please clarify if patient is being treated/monitored for: [ ] Evidance of Pulmonary embolus [ ] No evidance of Pulmonary embolus [ ] Other diagnosis [ ] Unable to determine In addition, please specify: Present on Admission (POA): [ ] Yes [ ] No [ ] Unable to determine For continuity of documentation, please document condition throughout progress notes and discharge summary. Thank You. CLINICAL INDICATORS - SIGNS / SYMPTOMS/ LABS Weakness and SOB - Documented in H&P on 11/21 by Coco newman of note the patient trimmer sawyer is Dr Best he does appear tachypneic while eating - Documented in H&P on 11/21 by Coco newman Pulmonary embolus - Documented in Consult note on 11/22 by Elisa Flowers MD CT angia was done which was intially read of a subsegmental PE - Documented in Consult note on 11/22 by KAREEN BEST MD Repeat study reports say no evidance of any PE and scan of his leg was negative - Documented in Consult note on 11/22 by KAREEN BEST MD There was some discrepancy in the reporting of the CTA. I discussed with radiologist on duty and he felt this likely was small PE - Documented in hospital PNS on 11/23 Gwyn Veloz RISK FACTORS Hx of CHF- Documented in H&P on 11/21 by Coco newman COPD exacerbation - Documented in H&P on 11/21 by Coco newman TREATMENT Treated with heparin - Documented in Consult note on 11/22 by Elisa Flowers MD [facility] Repeat CT angio [employer] Supervisor Crystal Reports Winform Viewer (This form is maintained as a part of the permanent medical record) 2014 [employer]. All Rights Reserved [email or web address] [not provided] MTDD
== END 2018-11-24 16:24 | DRG 190 ==
LOC: ERS 18:29 → 2SE 23:21 → OBSVTOIN 11-22 04:03
PROVIDERS: ADMIT Internal Medicine; ATTEND Internal Medicine
DX: J44.1 Chronic obstructive pulmonary disease with (acute) exacerbation (principal); E43 Unspecified severe protein-calorie malnutrition; G92 Toxic encephalopathy; I50.32 Chronic diastolic (congestive) heart failure; Z68.1 Body mass index [BMI] 19.9 or less, adult; Z66 Do not resuscitate; I10 Essential (primary) hypertension; E78.5 Hyperlipidemia, unspecified; E11.9 Type 2 diabetes mellitus without complications; I25.10 Atherosclerotic heart disease of native coronary artery without angina pectoris; Z95.5 Presence of coronary angioplasty implant and graft; Z95.2 Presence of prosthetic heart valve; Z95.0 Presence of cardiac pacemaker; Z79.84 Long term (current) use of oral hypoglycemic drugs; Z79.82 Long term (current) use of aspirin; Z79.899 Other long term (current) drug therapy
CPT/HCPCS: 36415; 36416; 71045; 71275; 80048; 80053; 81003; 81015; 82553; 82805; 83605; 83735; 83880; 84145; 84484; 85014; 85018; 85025; 85049; 85379; 85730; 93005; 93306; 93970; 94640; 96374; 96375; J0360; J0696; J1644; J1815; J2930; J7512; J7620; S0028; S0179

== ENCOUNTER 2019-02-25 12:07 | Emergency (ER) | payer MEDICARE | END 2019-02-25 14:00 | disposition home or self-care (01) | LOC: ERS 12:07 | DX: E11.649 Type 2 diabetes mellitus with hypoglycemia without coma (principal); I11.0 Hypertensive heart disease with heart failure; I50.9 Heart failure, unspecified; J44.9 Chronic obstructive pulmonary disease, unspecified; I25.10 Atherosclerotic heart disease of native coronary artery without angina pectoris; E78.5 Hyperlipidemia, unspecified; Z95.5 Presence of coronary angioplasty implant and graft; Z79.899 Other long term (current) drug therapy; Z79.52 Long term (current) use of systemic steroids; Z79.4 Long term (current) use of insulin; Z79.01 Long term (current) use of anticoagulants; Z79.51 Long term (current) use of inhaled steroids | CPT/HCPCS: 36416; 99284 ==

== ENCOUNTER 2019-04-13 22:08 | Observation (INO) | payer MEDICARE ==
[2019-04-13 23:09] LABS: #Eosinphils 0.2 thou/uL (0.0-0.7); #Lymphocytes 1.2 thou/uL (1.20-3.40); #Monocytes 0.6 thou/uL (0.11-0.59); #Neutrophils 7.8 thou/uL (1.40-6.50); %Basophils 0.3 % (0.0-1.0); %Eosinophils 2.3 % (0.0-10.0); %Lymphocytes 11.9 % (21.0-51.0); %Monocytes 6.3 % (0.0-10.0); %Neutrophils 79.1 % (42.0-75.0); Hemoglobin 11.9 g/dL (14.0-18.0); Mean Corpuscular HGB CONC 32.7 g/dL (32.0-36.0); Mean Corpuscular Hemoglobin 32.2 pg (27.0-31.0); Mean Corpuscular Volume 98.5 fL (78.0-98.0); Mean Platelet Volume 9.8 fL (7.4-10.4); Platelet Count 162 thou/uL (130-400); RBC Distribution Width 14.1 % (11.5-14.5); Red Blood Cell (RBC) Count 3.68 mill/uL (4.70-6.10); White Blood Cell (WBC) Count 9.9 thou/uL (4.8-10.8)
[2019-04-13 23:11] LABS: Bilirubin Negative (Negative); Blood, Urine 1+ (Negative); Clarity Clear (Clear); Glucose, Urine (Dipstick) Greater than 1000 mg/dL (Negative); Leukocyte 250 Leu/uL (Negative); Mucous/LPF Rare LPF (<2+); Nitrite Negative (Negative); Protein, Urine (Dipstick) 70 mg/dL (Neg-Trace); Squamous Epithelial 0-3 HPF (0-3); WBC/HPF 21-50 HPF (0-3); Yeast-Budding 3+ HPF (None Seen)
[2019-04-13 23:13] LABS: Amphetamine Not Detected (NotDetected); Cocaine Metabolite Screen Not Detected (NotDetected); Medtox Reader # READER 4; Methamphetamine Not Detected (NotDetected); Opiate Screen Not Detected (NotDetected); Phencyclidine (PCP) Not Detected (NotDetected); THC/Cannabinoid Screen Not Detected (NotDetected)
[2019-04-13 23:14] LABS: Barbiturates Screen Not Detected (NotDetected); Benzodiazepine Screen Detected (NotDetected); Medtox Control Line Valid? VALID (VALID); Methadone Not Detected (NotDetected); Oxycodone Screen Not Detected (NotDetected); Tricyclic Screen Not Detected (NotDetected)
[2019-04-13 23:15] LABS: Bacteria/HPF 1+ HPF (None Seen)
--- NOTE | 2019-04-13 23:29 | CT ---
CT Brain WO Con: 04/13/2019 10:46 PM CLINICAL HISTORY: Global weakness and headache. IMAGING TECHNIQUE: Multiple CT images were obtained of the brain without IV contrast. COMPARISON: CT the brain dated July 14, 2018 FINDINGS: Brain: Moderate chronic small vessel white matter ischemic changes similar appearing. 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 Remote lacunar infarct involving the left cerebellum is stable. No acute intracranial hemorrhage or midline shift is present . Ventricles: Normal. No hydrocephalus. Skull: Intact. Visualized Paranasal sinuses: Clear. Mastoid air cells:Clear. Extracranial soft tissues:Normal. IMPRESSION: No acute intracranial abnormality.
--- NOTE | 2019-04-13 23:30 | RAD ---
Chest AP view INDICATION: Global weakness and dyspnea COMPARISON: November 28, 2018 FINDINGS: Lungs: Chronic lung changes are stable Cardiac silhouette: Heart size is normal. Endovascular graft involving the ascending aorta is stable . Dual-lead pacemaker is stable. Pulmonary vasculature: Normal Pleural spaces: No pleural effusion or pneumothorax is demonstrated. Upper abdomen: No abnormality seen. Osseous structures: No acute osseous abnormality. Additional findings: None. IMPRESSION: No acute cardiopulmonary abnormality.
[2019-04-13 23:34] LABS: Acetaminophen Less than 6.0 mcg/mL (10.0-30.0); Alcohol Less than 10 mg/dL (Less than 10); Salicylate Less than 8.0 mg/dL (15.0-30.0)
[2019-04-13 23:35] LABS: ALT (SGPT) 19 U/L (8-55); AST (SGOT) 25 U/L (5-34); Albumin 3.4 g/dL (3.4-4.8); Alkaline Phosphatase 75 U/L (40-110); Anion Gap 12 mmol/L (10-20); BUN (Urea Nitrogen) 36 mg/dL (8.4-25.7); Bilirubin, Total 0.4 mg/dL (0.2-1.2); Calc. Creatinine Clearance 0 mL/min (70-130); Calcium 9.9 mg/dL (7.8-10.44); Carbon Dioxide 32 mmol/L (23-31); Chloride 103 mmol/L (98-107); Estimated GFR-MDRD 71; Globulin 2.9 g/dL (2.4-3.5); Glucose 193 mg/dL (83-110); Potassium 4.5 mmol/L (3.5-5.1); Protein, Total 6.3 g/dL (5.8-8.1); Sodium 142 mmol/L (136-145)
[2019-04-13 23:56] LABS: CKMB 2.6 ng/mL (0-6.6)
[2019-04-14] MEDS ORDERED: Aspirin Chewable 81 MG TAB ONE (00:03)
[2019-04-14] MEDS ORDERED: cefTRIAXone\\ROCEPHIN 1 GM VIAL ONE (00:03)
[2019-04-14] MEDS ORDERED: Aspirin 325 MG TAB ONE (00:07)
[2019-04-14 00:48] LABS: Hemoglobin A1c 6.7 % (4.0-6.0)
[2019-04-14 00:52] LABS: Magnesium 1.5 mg/dL (1.6-2.6); Phosphorus 2.7 mg/dL (2.3-4.7)
[2019-04-14 01:22] VITALS: BMI 16.2
[2019-04-14] MEDS ORDERED: Magnesium 2 GM/50 ML 2 GM in Premix Bag 1 BAG IVPB SCH (02:00)
[2019-04-14 02:55] LABS: CKMB 3.2 ng/mL (0-6.6)
[2019-04-14] MEDS ORDERED: Ondansetron ODT 4 MG TAB PO PRN (03:35)
[2019-04-14] MEDS ORDERED: Calcium Carbonate 500 MG ChewTAB PO PRN (03:35)
[2019-04-14] MEDS ORDERED: Dextrose 5% in Water 1,000 ML IV PRN (03:35)
[2019-04-14] MEDS ORDERED: Dextrose 50% Abboject 50 ML SYRINGE SLOW IVP PRN (03:35)
[2019-04-14] MEDS ORDERED: Insulin Regular 300 UNITS/3 ML VIAL SC PRN ×2 (03:35)
[2019-04-14] MEDS ORDERED: Acetaminophen 325 MG TAB PO PRN (03:35)
[2019-04-14] MEDS ORDERED: Ondansetron PF 4 MG/2 ML Vial IVP PRN (03:35)
--- NOTE | 2019-04-14 04:04 | HP ---
PRIMARY CARE PHYSICIAN: Dr. Sosa. CHIEF COMPLAINT: Generalized weakness. HISTORY OF PRESENT ILLNESS: The patient is an 84-year-old male with dementia; COPD, on home oxygen; diabetes mellitus type 2, and hypertension, who was brought in by his family with above complaints. The patient currently lives at home. He has [facility]. He is on 2.5 L of oxygen. He has good family support. Over the past few days, the patient has been feeling generally weak and fatigued. His mentation is progressively getting worse. Over the last 24 hours, he is unable to ambulate on his own. He also has coordination issues. His mentation got worse as well. He has not been eating and drinking well. For this reason, the family brought him to the emergency room. He also fell approximately a month ago per family report. PAST MEDICAL HISTORY: 1. Chronic diastolic heart failure. 2. History of pulmonary embolism in November of 2008. 3. Mitral regurgitation. 4. Hypertension. 5. Diabetes mellitus type 2. 6. COPD, on home oxygen. 7. Coronary artery disease. 8. History of TAVR. 9. Hyperlipidemia. 10. History of pacemaker placement. PAST SURGICAL HISTORY: 1. Aortic valve replacement. 2. Cardiac stent placement. 3. Pacemaker. ALLERGIES: NO KNOWN DRUG ALLERGIES. CURRENT HOME MEDICATIONS: Family to provide accurate list of medications. SOCIAL HISTORY: The patient currently lives at home. His surrogate decision maker is patient's daughter, Ezio. He was full code last admission. Please note that this needs to be verified with the daughter in a.m. No tobacco or drug use. FAMILY HISTORY: Positive for diabetes mellitus type 2. REVIEW OF SYSTEMS: Cannot be reliably obtained from the patient due to current mentation. PHYSICAL EXAMINATION: VITAL SIGNS: In the emergency room showed temperature 98, respirations 12, pulse rate of 99, blood pressure of 165/81, and O2 saturations 98% on room air. GENERAL: An 84-year-old male, thin built, in no apparent distress, ill-appearing. HEENT: Head, atraumatic and normocephalic. Sclerae anicteric. Dry mucous membranes. No oral lesion. NECK: Supple. No JVD. No carotid bruit. LUNGS: Showed scattered rhonchi without significant rales or wheezing. No accessory muscle use. HEART: S1, S2 present. Regular. No rubs or gallops. Pacemaker noted. ABDOMEN: Soft, nontender. Bowel sounds present. No rebound or guarding. EXTREMITIES: No edema or calf tenderness. NEUROLOGIC: The patient is following commands to some extent. He is able to move all of his extremities on verbal command. PSYCHIATRIC: As discussed above. SKIN: Warm and dry. LYMPH NODE: No palpable lymph nodes in the neck. PERIPHERAL VASCULAR: Radial pulses palpable bilaterally. MUSCULOSKELETAL: No joint swelling tenderness. LABORATORY FINDINGS: CBC showed WBC 9.9 with hemoglobin 11.9, hematocrit 36.3, platelet 162. Chemistry showed sodium 142, potassium 4.5, chloride 103, bicarb 32, BUN 36, creatinine 1. Troponin of 0.037 with normal CK-MB. Hemoglobin A1c 6.7. Urine drug screen; benzodiazepines. Urinalysis showed 21 to 50 wbc's with 1+ bacteria. Leukocyte esterase positive. CT scan of the brain by my review was negative for acute findings. Chest x-ray by my review was negative for acute findings. EKG by my review showed sinus rhythm with nonspecific ST-T wave changes. IMPRESSION: 1. Generalized weakness, multifactorial. 2. Urinary tract infection. 3. Dehydration. 4. Elevated troponin secondary to dehydration, questionable type 2 myocardial infarction. 5. Anemia secondary to nutritional deficiency, rule out vitamin B12, folic acid deficiency. 6. Diabetes mellitus type 2. 7. Chronic obstructive pulmonary disease with chronic hypoxic respiratory failure on 2.5 L oxygen. 8. Hypertension. 9. Kvub-tr-bgftklds mitral regurgitation. 10. Aortic stenosis, status post transcatheter aortic valve replacement. 11. Coronary artery disease, status post stent placement. 12. History of pacemaker placement. 13. Moderate protein-calorie malnutrition. 14. Chronic kidney disease, stage 2. 15. Hypomagnesemia with magnesium 1.5. PLAN: The patient will be monitored on the telemetry unit. Home medications will be verified. We will start him on insulin sliding scale. Check vitamin B12 and folic acid. Replace magnesium. Empiric antibiotics for UTI. We will check postvoid residual. Physical therapy and Occupational Therapy consult. Consult geriatric case manager for continuation of home health care. We will discuss the plan of care with the daughter when she arrives. The spouse is at the bedside. She stated understanding. Job ID: [id number]
[2019-04-14] MEDS: Sodium Chloride 0.9% 1,000 ML IV SCH ×2 (04:42→15:02)
[2019-04-14 05:22] LABS: INR-International Normal Ratio 1.1
[2019-04-14] MEDS: Mometasone/Formoterol 120 PUFF INHALER INH SCH ×2 (07:40→19:30)
[2019-04-14] MEDS: Isosorbide Mononitrate (ER) 30 MG TAB PO SCH (09:44)
[2019-04-14] MEDS: metFORMIN 500 MG TAB PO SCH ×2 (09:44→22:00)
[2019-04-14] MEDS: Saccharomyces boulardii 250 MG CAP PO SCH (09:44)
[2019-04-14] MEDS: Megestrol Acetate 40 MG TAB PO SCH ×2 (09:44→22:01)
[2019-04-14] MEDS: ALPRAZolam 0.25 MG TAB PO SCH ×2 (09:44→22:00)
[2019-04-14] MEDS: Icosapent Ethyl 1 GM CAPSULE PO SCH ×5 (09:44→22:19)
[2019-04-14] MEDS: Gabapentin 300 MG CAP PO SCH ×3 (09:44→22:00)
[2019-04-14] MEDS: Senokot S 8.6-50 MG TAB PO SCH ×2 (09:44→22:01)
[2019-04-14] MEDS: predniSONE 5 MG TAB PO SCH (09:44)
[2019-04-14] MEDS: Apixaban 2.5 MG TAB PO SCH ×2 (09:45→22:00)
--- NOTE | 2019-04-14 11:06 | PDOC.HOSPP ---
- Subjective Encounter Date: 04/14/19 Encounter Time: 11:04 Subjective: recent onset weakness, unable to walk - Objective Vital Signs & Weight: Vital Signs (12 hours) Temp Pulse Resp BP BP Pulse Ox 04/14/19 09:41 98.3 F 91 16 148/64 H 97 04/14/19 07:39 86 20 04/14/19 04:00 97.2 F L 78 16 135/63 100 04/14/19 01:05 97.5 F L 82 18 148/68 H 100 Weight Weight 116 lb 4 oz I&O: 04/13/19 04/14/19 04/15/19 06:59 06:59 06:59 Intake Total 150 Output Total 200 Balance -50 Result Diagrams: 04/13/19 22:59 04/13/19 22:59 Additional Labs: Accuchecks 04/14/19 04/14/19 10:36 07:02 POC Glucose 121 H 102 Hospitalist ROS - Medication Medications: Active Medications Generic Name Dose Route Start Last Admin Trade Name Freq PRN Reason Stop Dose Admin Albuterol/Ipratropium 3 ml 04/14/19 07:00 04/14/19 07:39 Duoneb NEB 3 ml [id number] OLAF Administration Alprazolam 0.25 mg 04/14/19 09:00 04/14/19 09:44 Xanax PO 0.25 mg BID OLAF Administration Apixaban 2.5 mg 04/14/19 09:00 04/14/19 09:45 Eliquis PO 2.5 mg BID OLAF Administration Diltiazem HCl 30 mg 04/14/19 09:00 04/14/19 09:45 Cardizem PO 30 mg BID OLAF Administration Gabapentin 300 mg 04/14/19 09:00 04/14/19 09:44 Neurontin PO 300 mg TID OLAF Administration Sodium Chloride 1,000 mls @ 75 mls/hr 04/14/19 03:45 04/14/19 04:42 Normal Saline 0.9% IV 1,000 mls .[id number] OLAF Administration Isosorbide Mononitrate 30 mg 04/14/19 09:00 04/14/19 09:44 Imdur Er PO 30 mg DAILY OLAF Administration Megestrol Acetate 40 mg 04/14/19 09:00 04/14/19 09:44 Megace PO 40 mg BID OLAF Administration Metformin HCl 500 mg 04/14/19 09:00 04/14/19 09:44 Glucophage PO 500 mg BID OLAF Administration Miscellaneous Medication 1 gm 04/14/19 09:00 04/14/19 09:44 Vascepa PO 1 gm QID OLAF Administration Mometasone Furoate/Formoterol Fumar 2 puff 04/14/19 06:30 04/14/19 07:40 Dulera 100 Mcg/5 Mcg Inhaler INH 2 puff BID-RT OLAF Administration Pantoprazole Sodium 40 mg 04/14/19 09:00 04/14/19 09:44 Protonix PO 40 mg DAILY OLAF Administration Prednisone 5 mg 04/14/19 08:00 04/14/19 09:44 Prednisone PO 5 mg QAM-WM OLAF Administration Saccharomyces Boulardii 250 mg 04/14/19 09:00 04/14/19 09:44 Florastor PO 250 mg DAILY OLAF Administration Senna/Docusate Sodium 1 tab 04/14/19 09:00 04/14/19 09:44 Senokot S PO 1 tab BID OLAF Administration - Exam General Appearance: awake alert Neck: no JVD Heart: RRR, II/IV Respiratory: CTAB Respiratory - other findings: decreased BS Gastrointestinal: soft, normal bowel sounds Extremities: no edema Neurological: no focal deficits Hosp A/P (1) Weakness Code(s): R53.1 - WEAKNESS Status: Acute (2) UTI (urinary tract infection) Status: Acute Qualifiers: Urinary tract infection type: site unspecified (3) CAD (coronary artery disease) Code(s): I25.10 - ATHSCL HEART DISEASE OF [place] CORONARY ARTERY W/O ANG PCTRS Status: Chronic Qualifiers: [place] vs. transplanted heart: [place] heart Associated angina: without angina (4) COPD (chronic obstructive pulmonary disease) Status: Chronic Qualifiers: COPD type: COPD with acute exacerbation Qualified Code(s): J44.1 - Chronic obstructive pulmonary disease with (acute) exacerbation (5) Diabetes type 2, controlled Code(s): E11.9 - TYPE 2 DIABETES MELLITUS WITHOUT COMPLICATIONS Status: Chronic Qualifiers: Diabetes mellitus termite helper insulin use: without termite helper use Diabetes mellitus complication status: without complication Qualified Code(s): E11.9 - Type 2 diabetes mellitus without complications (6) Hypertension Code(s): I10 - ESSENTIAL (PRIMARY) HYPERTENSION Status: Chronic (7) Pacemaker Code(s): Z95.0 - PRESENCE OF CARDIAC PACEMAKER Status: Chronic - Plan cont rocephin pending Urine C&s selected home meds TSH,T4,T3< cortsol PT
[2019-04-14 12:00] LABS: Free T4 (Free Thyroxine) 0.92 ng/dL (0.70-1.48); Thyroid Stimulating Hormone 3.1154 uIU/mL (0.35-4.94)
[2019-04-14 15:48] LABS: Platelet Count 156 thou/uL (130-400)
[2019-04-14] MEDS ORDERED: Atorvastatin Calcium 20 MG TAB PO SCH (21:00)
[2019-04-14] MEDS ORDERED: Mirtazapine 15 MG TAB PO SCH (21:00)
[2019-04-14] MEDS ORDERED: cefTRIAXone\\ROCEPHIN 1 GM in Sodium Chloride 0.9% 100 ML IVPB SCH (23:59)
[2019-04-15] MEDS: Sodium Chloride 0.9% 1,000 ML IV SCH (04:51)
[2019-04-15 05:58] LABS: #Eosinphils 0.4 thou/uL (0.0-0.7); #Lymphocytes 1.5 thou/uL (1.20-3.40); #Monocytes 0.8 thou/uL (0.11-0.59); #Neutrophils 7.1 thou/uL (1.40-6.50); %Basophils 0.3 % (0.0-1.0); %Eosinophils 3.6 % (0.0-10.0); %Lymphocytes 15.1 % (21.0-51.0); %Monocytes 8.3 % (0.0-10.0); %Neutrophils 72.6 % (42.0-75.0); Hemoglobin 11.3 g/dL (14.0-18.0); Mean Corpuscular HGB CONC 32.9 g/dL (32.0-36.0); Mean Corpuscular Hemoglobin 32.2 pg (27.0-31.0); Mean Corpuscular Volume 97.9 fL (78.0-98.0); Mean Platelet Volume 9.1 fL (7.4-10.4); Platelet Count 149 thou/uL (130-400); RBC Distribution Width 13.9 % (11.5-14.5); Red Blood Cell (RBC) Count 3.51 mill/uL (4.70-6.10); White Blood Cell (WBC) Count 9.8 thou/uL (4.8-10.8)
[2019-04-15 06:08] LABS: ALT (SGPT) 20 U/L (8-55); AST (SGOT) 25 U/L (5-34); Albumin 3.1 g/dL (3.4-4.8); Alkaline Phosphatase 63 U/L (40-110); Anion Gap 13 mmol/L (10-20); BUN (Urea Nitrogen) 31 mg/dL (8.4-25.7); Bilirubin, Total 0.5 mg/dL (0.2-1.2); Calc. Creatinine Clearance 56 mL/min (70-130); Calcium 9.1 mg/dL (7.8-10.44); Carbon Dioxide 29 mmol/L (23-31); Chloride 106 mmol/L (98-107); Estimated GFR-MDRD Greater than 90; Globulin 2.5 g/dL (2.4-3.5); Glucose 84 mg/dL (83-110); Potassium 4.3 mmol/L (3.5-5.1); Protein, Total 5.6 g/dL (5.8-8.1); Sodium 144 mmol/L (136-145)
[2019-04-15] MEDS: Mometasone/Formoterol 120 PUFF INHALER INH SCH (07:48)
[2019-04-15] MEDS: Apixaban 2.5 MG TAB PO SCH (09:35)
[2019-04-15] MEDS: ALPRAZolam 0.25 MG TAB PO SCH (09:35)
[2019-04-15] MEDS: predniSONE 5 MG TAB PO SCH (09:35)
[2019-04-15] MEDS: metFORMIN 500 MG TAB PO SCH (09:36)
[2019-04-15] MEDS: Icosapent Ethyl 1 GM CAPSULE PO SCH ×2 (09:36→14:06)
[2019-04-15] MEDS: Gabapentin 300 MG CAP PO SCH ×2 (09:36→15:12)
[2019-04-15] MEDS: Isosorbide Mononitrate (ER) 30 MG TAB PO SCH (09:36)
[2019-04-15] MEDS: Senokot S 8.6-50 MG TAB PO SCH (09:37)
[2019-04-15] MEDS: Saccharomyces boulardii 250 MG CAP PO SCH (09:37)
[2019-04-15] MEDS: Megestrol Acetate 40 MG TAB PO SCH (09:49)
[2019-04-15] MEDS ORDERED: Cosyntropin 250 MCG VIAL SLOW IVP SCH (11:00)
[2019-04-15 11:44] VITALS: TEMP 97.6
--- NOTE | 2019-04-15 14:26 | PDOC.HOSPP ---
- Subjective Encounter Date: 04/15/19 Encounter Time: 14:24 Subjective: no change, stiil weak - Objective Vital Signs & Weight: Vital Signs (12 hours) Temp Pulse Resp BP Pulse Ox 04/15/19 13:51 102 H 20 100 04/15/19 11:36 97.6 F 113 H 21 H 157/68 H 98 04/15/19 08:41 166/77 H 04/15/19 08:00 98.1 F 105 H 18 184/81 H 100 04/15/19 07:44 104 H 18 100 04/15/19 03:32 97.3 F L 83 20 144/63 H 96 Weight Admit Weight 116 lb 4 oz Weight 123 lb I&O: 04/14/19 04/15/19 04/16/19 06:59 06:59 06:59 Intake Total 150 955 Output Total 200 326 Balance -50 629 Result Diagrams: 04/15/19 05:44 04/15/19 05:44 Additional Labs: Accuchecks 04/15/19 04/15/19 04/14/19 10:53 05:23 20:10 POC Glucose 139 H 100 302 H 04/14/19 17:08 POC Glucose 249 H Hospitalist ROS - Medication Medications: Active Medications Generic Name Dose Route Start Last Admin Trade Name Freq PRN Reason Stop Dose Admin Albuterol/Ipratropium 3 ml 04/14/19 07:00 04/15/19 13:51 Duoneb NEB 3 ml [id number] OLAF Administration Alprazolam 0.25 mg 04/14/19 09:00 04/15/19 09:35 Xanax PO 0.25 mg BID OLAF Administration Apixaban 2.5 mg 04/14/19 09:00 04/15/19 09:35 Eliquis PO 2.5 mg BID OLAF Administration Atorvastatin Calcium 20 mg 04/14/19 21:00 04/14/19 22:00 Lipitor PO 20 mg HS OLAF Administration Cosyntropin 250 mcg 04/15/19 11:00 04/15/19 13:55 Cortrosyn SLOW IVP 250 mcg WILLCALL OLAF Administration Diltiazem HCl 30 mg 04/14/19 09:00 04/15/19 09:36 Cardizem PO 30 mg BID OLAF Administration Gabapentin 300 mg 04/14/19 09:00 04/15/19 09:36 Neurontin PO 300 mg TID OLAF Administration Sodium Chloride 1,000 mls @ 75 mls/hr 04/14/19 03:45 04/15/19 04:51 Normal Saline 0.9% IV 1,000 mls .[id number] OLAF Administration Ceftriaxone Sodium 1 gm/ 100 mls @ 200 mls/hr 04/14/19 23:59 04/14/19 23:19 Sodium Chloride IVPB 100 mls Q24HR OLAF Administration Insulin Human Regular 0 units 04/14/19 03:35 04/14/19 17:20 Humulin R SC 3 unit .MILD SLIDING SCALE PRN Administration Mild Correctional Scale Insulin Human Regular 0 units 04/14/19 03:35 04/14/19 21:59 Humulin R SC 4 unit .BEDTIME SLIDING SC PRN Administration Bedtime Correctional Scale Isosorbide Mononitrate 30 mg 04/14/19 09:00 04/15/19 09:36 Imdur Er PO 30 mg DAILY OLAF Administration Megestrol Acetate 40 mg 04/14/19 09:00 04/15/19 09:49 Megace PO Not Given BID OLAF Metformin HCl 500 mg 04/14/19 09:00 04/15/19 09:36 Glucophage PO 500 mg BID OLAF Administration Mirtazapine 15 mg 04/14/19 21:00 04/14/19 22:00 Remeron PO 15 mg HS OLAF Administration Miscellaneous Medication 1 gm 04/14/19 09:00 04/15/19 14:06 Vascepa PO 1 gm QID OLAF Administration Mometasone Furoate/Formoterol Fumar 2 puff 04/14/19 06:30 04/15/19 07:48 Dulera 100 Mcg/5 Mcg Inhaler INH 2 puff BID-RT OLAF Administration Pantoprazole Sodium 40 mg 04/14/19 09:00 04/15/19 09:37 Protonix PO 40 mg DAILY OLAF Administration Prednisone 5 mg 04/14/19 08:00 04/15/19 09:35 Prednisone PO 5 mg QAM-WM OLAF Administration Saccharomyces Boulardii 250 mg 04/14/19 09:00 04/15/19 09:37 Florastor PO 250 mg DAILY OLAF Administration Senna/Docusate Sodium 1 tab 04/14/19 09:00 04/15/19 09:37 Senokot S PO 1 tab BID OLAF Administration - Exam General Appearance: awake alert Neck: no JVD Heart: RRR Respiratory: CTAB Gastrointestinal: normal bowel sounds Extremities: no edema Hosp A/P (1) Weakness Code(s): R53.1 - WEAKNESS Status: Acute (2) UTI (urinary tract infection) Status: Acute Qualifiers: Urinary tract infection type: site unspecified (3) CAD (coronary artery disease) Code(s): I25.10 - ATHSCL HEART DISEASE OF [place] CORONARY ARTERY W/O ANG PCTRS Status: Chronic Qualifiers: [place] vs. transplanted heart: [place] heart Associated angina: without angina (4) COPD (chronic obstructive pulmonary disease) Status: Chronic Qualifiers: COPD type: COPD with acute exacerbation Qualified Code(s): J44.1 - Chronic obstructive pulmonary disease with (acute) exacerbation (5) Diabetes type 2, controlled Code(s): E11.9 - TYPE 2 DIABETES MELLITUS WITHOUT COMPLICATIONS Status: Chronic Qualifiers: Diabetes mellitus senior care insulin use: without terminal worker use Diabetes mellitus complication status: without complication Qualified Code(s): E11.9 - Type 2 diabetes mellitus without complications (6) Hypertension Code(s): I10 - ESSENTIAL (PRIMARY) HYPERTENSION Status: Chronic (7) Pacemaker Code(s): Z95.0 - PRESENCE OF CARDIAC PACEMAKER Status: Chronic - Plan urine C&S neg discussed with family was advised they plan on HH with hospice, CM assisting
[2019-04-15 17:20] VITALS: BP 147/66
--- NOTE | 2019-04-16 09:00 | DIS ---
DATE OF ADMISSION: 04/13/2019 DATE OF DISCHARGE: 04/15/2019 PRIMARY CARE PROVIDER: Gwyn Sosa MD DISCHARGE DISPOSITION: Discharged to [facility] in [place] under the care of Dr. Hernandez. FINAL DIAGNOSES: 1. Generalized weakness. 2. Chronic respiratory failure, on home O2, with hypoxia. 3. Coronary artery disease. 4. Chronic obstructive pulmonary disease. 5. Dyslipidemia. 6. Chronic diastolic heart failure. 7. Mitral regurgitation. 8. Diabetes mellitus type 2. 9. History of transcatheter aortic-valve replacement. 10. History of pacemaker placement. DISCHARGE MEDICATIONS: 1. Prednisone 5 mg every other day. 2. Metformin 500 mg twice a day. 3. Stiolto Respimat inhaler 2 puffs daily. 4. Repaglinide 0.5 mg daily. 5. Ramipril 5 mg daily. 6. Protonix 40 mg a day. 7. Mirtazapine 15 mg daily. 8. Megace 40 mg twice a day. 9. Imdur 30 mg a day. 10. DuoNeb 3 mL q.6 hours p.r.n. 11. Lantus 10 units subcu at bedtime. 12. Vascepa 1 g q.i.d. 13. Gabapentin 300 mg 3 times a day. 14. Breo Ellipta 1 inhalation twice a day. 15. Diltiazem 30 mg twice a day. 16. Lipitor 20 mg a day. 17. Eliquis 2.5 mg twice a day. 18. Xanax 0.25 mg twice a day. ALLERGIES: NO KNOWN DRUG ALLERGIES. CODE STATUS: Undetermined, the family is still in discussion. DIET: Heart healthy. PENDING AT THE TIME OF DISCHARGE: Nothing. CONSULTATIONS: None. PROCEDURES: None. HOSPITAL COURSE: The patient admitted through the emergency room with generalized weakness, dementia, COPD, etc., followed by [facility]. The patient has been unable to transfer to a commode. He had a pyuria, was thought to have a UTI. Urine culture was eventually negative. Admitting laboratory data; white count 9.9, hemoglobin 11.9, platelet count of 162,000. INR 1.1. Comprehensive metabolic profile; sodium 142, potassium 4.5, BUN 36, creatinine 1.0, blood sugar 193. Hemoglobin A1c 6.7. Lactic acid 2.0. Calcium 9.9. Liver function tests normal. Troponin 0.034 and 0.046. The patient was treated with IV antibiotics, IV fluids. His home medicines were continued. The patient failed to improve. This was discussed with the family. Initially, they were interested in [facility] with Hospice. However, pillowcase maker was involved. Referral was made to [facility]. Medicaid pending. He is being transferred there for continuing care. Dr. Hernandez is to see him in follow-up. Job ID: [id number]
--- NOTE | 2019-04-19 12:22 | EKG ---
Test Reason : Blood Pressure : / mmHG Vent. Rate : 084 BPM Atrial Rate : 084 BPM P-R Int : 144 ms QRS Dur : 090 ms QT Int : 350 ms P-R-T Axes : 077 054 057 degrees QTc Int : 413 ms Normal sinus rhythm Cannot rule out Anterior infarct , age undetermined Abnormal ECG Confirmed by CASSANDRA QUINONES ([id number]), material expeditor HUA MENDEZ ([id number]) on 04/19/2019 12:22:20 PM Referred By: Confirmed By:CASSANDRA Anderson
== END 2019-04-15 16:15 ==
LOC: ERS 22:08 → 2NO 23:58
PROVIDERS: ADMIT Internal Medicine; ATTEND Internal Medicine
DX: R53.1 Weakness (principal); J96.11 Chronic respiratory failure with hypoxia; I25.10 Atherosclerotic heart disease of native coronary artery without angina pectoris; J44.9 Chronic obstructive pulmonary disease, unspecified; E78.5 Hyperlipidemia, unspecified; I50.32 Chronic diastolic (congestive) heart failure; E11.9 Type 2 diabetes mellitus without complications; I34.0 Nonrheumatic mitral (valve) insufficiency; F03.90 Unspecified dementia, unspecified severity, without behavioral disturbance, psychotic disturbance, mood disturbance, and anxiety; Z95.2 Presence of prosthetic heart valve; Z95.0 Presence of cardiac pacemaker; Z79.899 Other long term (current) drug therapy; Z79.01 Long term (current) use of anticoagulants; Z79.4 Long term (current) use of insulin
CPT/HCPCS: 70450; 71045; 80053; 80306; 80307; 80400; 82533 ×2; 82553 ×2; 82607; 82746; 82962 ×2; 83036; 83605; 83735; 84100; 84439; 84443; 84481; 84484 ×3; 85014; 85018; 85025; 85049; 85610; 87040; 87086; 93005; 94640 ×5; 94664; 96361 ×2; 96365; 96367; 96375; 96376; 97116; 97139 ×3; 97530 ×2; 99285; G0378 ×3; 36415; 36416; 81003; 81015; 96374; J0696; J0834; J1815; J3475; J3490; J7512; J7620; S0179